=== PATIENT | female | born 1960 | race African-American/Black ===

== ENCOUNTER 2020-01-04 20:26 | Inpatient (IN) | payer MEDICARE, MEDICAID, SELFPAY ==
--- NOTE | ~2020-01-04 | XR_ITS ---
EXAMINATION: XR chest 2V DATE: 01/04/2020 20:50 INDICATION: Generalized weakness, bilateral lower limb edema TECHNIQUE: AP and lateral views of the chest are obtained. COMPARISON: 07/21/2019 FINDINGS: The lungs are hyperinflated but free of acute opacities. There is no pleural effusion or pn eumothorax. The cardiomediastinal silhouette is normal. There is mild thoracic spondylosis. Bilateral percutaneous nephrostomy tubes are noted. IMPRESSION: 1. No acute cardiopulmonary abnormality. Reviewed, dictated and finalized at location A.
--- NOTE | ~2020-01-04 | US_ITS ---
US venous doppler [facility] DATE: 01/05/2020 12:34 INDICATION: Left leg cellulitis. History of deep venous thrombosis. Patient on blood thinners. TECHNIQUE: Real-time and color flow imaging and Doppler analysis of the veins of the lower extremitie s COMPARISON: 02/02/2019 deep venous duplex examination of right lower extremity: No deep venous thrombo sis 11/17/2018 deep venous duplex examination of left lower extremity: Extensive deep venous thrombosis of the left common femoral vein, femoral vein, popliteal vein, peroneal trunk and posterior tibial vein s, as well as thrombus within the greater saphenous and deep femoral veins FINDINGS: Right lower extremity: The right greater saphenous vein is patent. There is spontaneous and phasic fl ow and normal augmentation and color flow signal and normal compression of the deep veins of the righ t lower extremity. Left lower extremity: Thrombus is identified within the left greater saphenous vein with only partial compression. There is incomplete compression of left common and femoral vein and lack of compression of the left femoral, popliteal, posterior tibial and peroneal veins.. IMPRESSION: Deep venous thrombosis throughout the left lower extremity Thrombus is noted within the left greater saphenous vein No evidence of deep venous thrombosis of the right lower extremity Dr. Ceja telephoned the report including deep venous thrombosis throughout the left lower extremity t o second floor nurse Gorge on 01/05/2020 at 1340 hours. Reviewed, dictated and finalized at Location [facility]. Reviewed, dictated and finalized at location B. IMPRESSION: Deep venous thrombosis throughout the left lower extremity Thrombus is noted within the left greater saphenous vein No evidence of deep venous thrombosis of the right lower extremity Dr. Ceja telephoned the report including deep venous thrombosis throughout the left lower extremity to second floor nurse Gorge on 01/05/2020 at 1340 hours.
--- NOTE | 2020-01-04 20:35 | ECG_ITS ---
Measurements Intervals [place] Rate: 91 P: SD: 0 QRS: 51 QRSD: 86 T: 0 QT: 393 QTc: 485 Interpretive Statements SINUS RHYTHM INCOMPLETE RIGHT BUNDLE BRANCH BLOCK T WAVE ABNORMALITY IN ANTERIOR LEADS- CONSIDER ISCHEMIA BASELINE ARTIFACT- I, II, AVR, AVL, V5-V6 ABNORMAL ECG Electronically Signed On 01-05-2020 8:38:14 CDT by Charlie Hernandez D.O.
[2020-01-04 20:37] VITALS: PULSE 93; RESP 22; TEMP 37.2
[2020-01-04 20:40] VITALS: BP 93/67; PULSE 93; RESP 22; TEMP 37.2; O2SAT 99
--- NOTE | 2020-01-04 20:59 | ED.GENADULT ---
HPI - General Adult General Chief complaint: Weakness Stated complaint: gen weakness Time Seen by Provider: 01/04/20 20:36 Source: patient and RN notes reviewed Mode of arrival: EMS Limitations: no limitations History of Present Illness HPI narrative: Pt is a 59 y/o -[place] female with a Hx of peripheral neuropathy, who presents to the ED via EMS with c/o erythema on her lt lower leg starting this morning. She notes that both of her legs were swollen when she woke up this morning, which she states is chronic. Pt notes that her lt lower leg appeared more red than usual. She states that she had difficulty using her legs to walk this morning, but notes that she has been able to walk this evening with a walker. Pt also reports a productive cough, but denies any fever, nausea, vomiting, or CP. She notes that she is currently taking Eliquis. complaint: Erythema on LLE Onset (ago): day(s) (1) Location: left (lt lower leg) Associated symptoms: cough (productive) and other (BLE edema (chronic); difficulty walking (resolved)) Related Data Home Medications Medication Instructions Recorded Confirmed apixaban [Eliquis] mg 01/04/20 clindamycin HCl 01/04/20 furosemide 01/04/20 gabapentin 01/04/20 metolazone 01/04/20 potassium chloride [Klor-Con M10] meq PO 01/04/20 ranitidine HCl 01/04/20 Allergies Allergy/AdvReac Type Severity Reaction Status Date / Time butorphanol Allergy Mild drove Verified 01/04/20 21:19 crazy ciprofloxacin Allergy Mild Nausea and Verified 01/04/20 21:19 Vomiting metrizamide Allergy Unknown Unknown Verified 01/04/20 21:19 Contrast Media Allergy Mild itching Uncoded 01/04/20 21:19 Review of Systems Review of Systems: All systems reviewed & are unremarkable except as noted in HPI and below Constitutional: Constitutional: Denies fever(s) and Reports other (difficulty walking (resolved)) Cardiovascular: Cardiovascular: Denies chest pain and Reports leg edema (BLE edema (chronic)) Respiratory: Respiratory: Reports cough (productive) Gastrointestinal: Gastrointestinal: Denies nausea and Denies vomiting Integumentary/Breasts: Skin/Breast: Reports erythema (erythema on lt lower leg) [facility] Past Medical History Medical History Anemia Arthritis Asthma Bowel obstruction Cervical cancer COPD (chronic obstructive pulmonary disease) Crohn's disease Depression DVT (deep venous thrombosis) Gastrointestinal ulcer GERD (gastroesophageal reflux disease) History of rectal polyps HTN (hypertension) IBS (irritable bowel syndrome) Peripheral neuropathy Renal disease Seasonal allergies Umbilical hernia UTI (urinary tract infection) Surgical History Surgical History History of colon resection History of colonoscopy Hx of section Hx of dilation and curettage Hx of nephrostomy Hx of umbilical hernia repair Social History Social History Smoking status: Current every day smoker Gender identity (if verbalized by the patient): Female Exam Const: General: no acute distress and alert Orientation/consciousness: patient oriented x3 Eyes: Conjunctivae: conjunctivae normal Pupils: Equal, round and reactive pupils present Neck: Neck: normal visual inspection Chest: Chest palpation & inspection: normal inspection of the chest Resp: Effort & Inspection: normal respiratory effort Auscultation: clear to auscultation bilaterally Cardio: Rate: regular rate Rhythm: regular rhythm GI: GI Palp: Yes Soft to palpation, No Tenderness to palpation present (GI), No Guarding due to palpation present (GI) and No Rigid due to palpation Skin: Other: left lower leg with erythema circumferential from ankle to below knee Neuro: General: patient oriented x3, moves all extremities and CN's II-XI intact bilaterally Extrem: General: edema b
[2020-01-04 21:00] LABS: Basophils Percent Auto 0.2 % (0.2-1.2); Eosinophils Percent Auto 0.1 % (0-4.4); Hematocrit 26.6 % (37.0-47.0); Hemoglobin 8.7 g/dL (12.0-15.0); Immature Granulocyte Absolute 0.16 K/mm3 (0.00-0.031); Immature Granulocyte Percent A 1.2 % (0-0.5); Lymphocytes Absolute Auto 1.44 K/mm3 (0.9-3.2); Lymphocytes Percent Auto 10.6 % (18.3-44.2); Mean Corpuscular HGB Conc 32.7 g/dl (32-36); Mean Corpuscular Hemoglobin 28.2 pg (26-34); Mean Corpuscular Volume 86.4 fl (80-100); Mean Platelet Volume 9.5 fl (7.4-10.4); Monocytes Absolute Auto 1.1 K/mm3 (0.1-0.6); Monocytes Percent Auto 7.8 % (2.6-8.5); Neutrophils Absolute Auto 10.9 K/mm3 (1.3-6.7); Neutrophils Percent Auto 80.1 % (45.5-73.1); Platelet Count Result 121 k/mm3 (150-375); Red Blood Count 3.08 M/mm3 (4.2-5.4); Red Cell Distribution Width 16.2 % (11.5-14.5); White Blood Count 13.6 K/mm3 (4.5-10.0)
[2020-01-04 21:14] LABS: Alanine Aminotransferase 12 U/L (4-35); Albumin Level 2.8 g/dL (3.5-5.1); Alkaline Phosphatase 103 U/L (38-126); Aspartate Amino Transferase 30 U/L (14-36); Bilirubin,Total 1.1 mg/dL (0.2-1.3); Blood Urea Nitrogen 29 mg/dL (7-17); Calcium 5.1 mg/dL (8.4-10.2); Carbon Dioxide 27 mmol/L (22-30); Chloride 94 mmol/L (98-107); Estimated Glomerular Filt Rate 35; Glucose 116 mg/dL (65-105); Potassium 2.5 mmol/L (3.4-5.0); Sodium 130 mmol/L (137-145)
[2020-01-04 21:18] LABS: Add Urine Microscopic? YES; Amorphous Sediment Urine Few; Appearance Urine Cloudy (Clear); Bacteria Urine 3+ /hpf; Bilirubin Urine Negative (Negative); Blood Urine 1+ (Negative); Color Urine Yellow (Yellow); Glucose Urine UA Negative (Negative); Ketones Urine Negative (Negative); Leukocyte Esterase Ur 3+ LEU/UL (Negative); Mucus Urine Few /lpf; Nitrate Urine Negative (Negative); Protein Urine 1+ mg/dL (Negative); Specific Grav Ur 1.012 (1.001-1.035); Squamous Epithelial Cell Urine Many /hpf (Few); Urobilinogen Urine Negative mg/dL (<2.0); WBC Urine >75 /hpf
[2020-01-04] MEDS: SODIUM CHLORIDE 0.9% IV 500 ML 999 ML IV CONT (21:18)
[2020-01-04 21:31] LABS: INR 1.5; Prothrombin Time 17.8 Seconds (11.1-14.7)
[2020-01-04 21:32] LABS: Magnesium 0.5 mg/dL (1.6-2.3); Partial Thromboplastin Time 41.7 SECONDS (22.3-36.8)
[2020-01-04 21:42] LABS: CRP 17.6 mg/dL (<1.0)
[2020-01-04 21:51] LABS: Lactic Acid Reflex 1.6 mmol/L (0.7-2.1)
--- NOTE | 2020-01-04 22:35 | PC.NURSE ---
pt reports itching all over approx 30 mins after iv abx were given. made aware, brendan [address] mg iv [address]orb from [address] bhatia
[2020-01-04] MEDS: CALCIUM GLUCONATE 1,000 MG/10 ML VIAL 1000 MG IV PUSH (23:31)
[2020-01-04] MEDS: MAGNESIUM SULF 1 GM/D5W 100 ML 1 GM/100 ML BAG IVPB (23:31)
[2020-01-04 23:38] VITALS: BP 137/92; PULSE 106; RESP 15; O2SAT 97
[2020-01-05] VITALS (12 sets, daily range): BP systolic 79–105; BP diastolic 50–66; PULSE 71–101; RESP 16–96; TEMP 36.3–36.6; O2SAT 16–100; BMI 19.1
--- NOTE | 2020-01-05 00:07 | PM.IMHP ---
H&P: HPI History of Present Illness Chief complaint: left leg cellulitis, hypokalemia, hypomagnesemia Narrative: This is a pleasant 59 year old -[place]ian female with known past medical history of previous DVT on chronic Eliquis therapy, HTN, COPD, with chronic nephrostomy tubes who is well known to our hospitalist service who presented to the hospital [facility] with a complaint of waking up this morning and finding her left lower extremity red, hot, and more painful than normal. The patient has chronic lower extremity edema. Tonight her legs felt so heavy that she is unable to move them on her own. She denies any worsening shortness of breath although she has had an ongoing cough recently. No sore throat, nausea, vomiting, chest pain, headache, abdominal pain, diarrhea, black stools or rectal bleeding. She has chronic lower back pain where her nephrostomy tubes are but states that its not any worse than normal. The patient was evaluated in the ER and started on Ancef IV. A short while afterwards she did develop diffuse pruritus but no rashes. She was treated with Benadryl. Routine labs demonstrated an elevated WBC of 13,600, a potassium level of 2.5 and a magnesium of 0.5. Review of Systems Review of Systems: All systems reviewed & are unremarkable except as noted in HPI and below PMFSH Past Medical History Medical History Anemia Arthritis Asthma Bowel obstruction Cervical cancer COPD (chronic obstructive pulmonary disease) Crohn's disease Depression DVT (deep venous thrombosis) Gastrointestinal ulcer GERD (gastroesophageal reflux disease) History of rectal polyps HTN (hypertension) IBS (irritable bowel syndrome) Peripheral neuropathy Renal disease Seasonal allergies Umbilical hernia UTI (urinary tract infection) Surgical History Surgical History History of colon resection History of colonoscopy Hx of section Hx of dilation and curettage Hx of nephrostomy Hx of umbilical hernia repair Family History Family History Mother Diabetes mellitus Acute myocardial infarction Congestive heart failure Hypertension Father Hypertension Social History Social History Years smoked: 25 Smoking status: Light tobacco smoker Tobacco type: cigarettes Second hand tobacco smoke exposure: No Alcohol intake: never Drinks per week: 2 Substance use: never Gender identity (if verbalized by the patient): Female Spiritual care concerns: No Agree to blood products: Yes Meds Home Medications and Allergies Home Medications Medication Instructions Recorded Confirmed Type diphenoxylate-atropine 2.5 2 tablet PO Q6H PRN #120 tablet 09/08/19 01/05/20 Rx mg-0.025 mg tablet Eliquis 5 mg PO BID 01/04/20 01/05/20 History furosemide 40 mg PO DAILY 01/04/20 01/05/20 History gabapentin 300 mg PO TID 01/04/20 01/05/20 History metolazone 2.5 mg PO DAILY 01/04/20 01/05/20 History ranitidine HCl 150 mg PO BID 01/04/20 01/05/20 History zolpidem [Ambien] 5 mg PO HS PRN 01/06/20 01/06/20 History Saccharomyces boulardii [Florastor] 250 mg PO BID 14 Days #28 cap 01/08/20 Rx magnesium oxide 400 mg PO BID 30 Days #60 tablet 01/08/20 Rx miconazole nitrate [Aloe [place] 1 applic TOPICAL Q12HR #141 gm 01/08/20 Rx Antifungal (micon)] potassium chloride 40 meq PO BID 30 Days #120 tablet 01/08/20 Rx sulfamethoxazole-trimethoprim 1 tablet PO Q12H 10 Days #20 tablet 01/08/20 Rx [Bactrim DS] tramadol 50 mg PO Q8H PRN #15 tablet 01/08/20 Rx Allergies Allergy/AdvReac Type Severity Reaction Status Date / Time butorphanol Allergy Mild drove Verified 01/04/20 21:19 crazy ciprofloxacin Allergy Mild Nausea and Verified 01/04/20 21:19 Vomiting iohexol Allergy Mild Itching Verified 01/08/20 10:03 [F
--- NOTE | 2020-01-05 00:32 | PC.NURSE ---
This patient, Ingrid Garcia, was admitted to Medical Room 248-. Patient/family oriented to hospital policies and general routines including ID bracelet, bed and alarms, visiting hours, pain management, procedures, bathroom and other care routines, personal items, smoking policy, room service/diet, and visiting hours. Valuables list has been completed. Information on how to activate the Rapid Response Team has been discussed. Patient/Family are encouraged to report perceived risks to care and to ask questions if they do not understand what they are told or what they should do.
[2020-01-05 01:00] LABS: Magnesium 0.8 mg/dL (1.6-2.3)
[2020-01-05] MEDS: MAGNESIUM SULF 2 GM/WATER 50ML 2 GM/50 ML BAG IVPB ×2 (03:10→08:44)
[2020-01-05 04:09] LABS: Basophils Percent Auto 0.1 % (0.2-1.2); Eosinophils Percent Auto 0.1 % (0-4.4); Hematocrit 22.9 % (37.0-47.0); Hemoglobin 7.5 g/dL (12.0-15.0); Immature Granulocyte Absolute 0.08 K/mm3 (0.00-0.031); Immature Granulocyte Percent A 0.9 % (0-0.5); Lymphocytes Absolute Auto 0.69 K/mm3 (0.9-3.2); Lymphocytes Percent Auto 7.7 % (18.3-44.2); Mean Corpuscular HGB Conc 32.8 g/dl (32-36); Mean Corpuscular Hemoglobin 28.1 pg (26-34); Mean Corpuscular Volume 85.8 fl (80-100); Mean Platelet Volume 9.7 fl (7.4-10.4); Monocytes Absolute Auto 0.5 K/mm3 (0.1-0.6); Monocytes Percent Auto 5.4 % (2.6-8.5); Neutrophils Absolute Auto 7.7 K/mm3 (1.3-6.7); Neutrophils Percent Auto 85.8 % (45.5-73.1); Platelet Count Result 100 k/mm3 (150-375); Red Blood Count 2.67 M/mm3 (4.2-5.4); Red Cell Distribution Width 16.3 % (11.5-14.5)
[2020-01-05 04:52] LABS: Alanine Aminotransferase 9 U/L (4-35); Albumin Level 2.2 g/dL (3.5-5.1); Alkaline Phosphatase 77 U/L (38-126); Aspartate Amino Transferase 23 U/L (14-36); Bilirubin,Total 0.8 mg/dL (0.2-1.3); Blood Urea Nitrogen 29 mg/dL (7-17); Calcium 5.2 mg/dL (8.4-10.2); Carbon Dioxide 27 mmol/L (22-30); Chloride 97 mmol/L (98-107); Estimated CRCL calculation 36 ml/min; Estimated Glomerular Filt Rate 47; Glucose 143 mg/dL (65-105); Magnesium 0.9 mg/dL (1.6-2.3); Potassium 2.5 mmol/L (3.4-5.0); Sodium 127 mmol/L (137-145)
[2020-01-05 05:34] LABS: Vancomycin Trough 31.8 ug/mL (10.0-20.0)
[2020-01-05 06:56] LABS: Magnesium 1.5 mg/dL (1.6-2.3); Potassium 2.6 mmol/L (3.4-5.0)
[2020-01-05] MEDS: POTASSIUM CHLORIDE 20 MEQ TABLET 60 MEQ PO (08:43)
[2020-01-05] MEDS: FAMOTIDINE 20 MG TABLET PO ×2 (08:44→20:42)
[2020-01-05] MEDS: GABAPENTIN 300 MG CAPSULE PO ×3 (08:44→22:42)
--- NOTE | 2020-01-05 10:01 | PM.IMPN ---
Progress Note: A&P Assessment and Plan (1) Redness and swelling of lower leg: Code(s): M79.89 - Other specified soft tissue disorders; R23.8 - Other skin changes Status: Acute Assessment and Plan: r/o Acute DVT vs. Cellulitis The patient was started on IV antibiotics initially she had an allergic reaction to Ancef, then her antibiotics were switched to IV vancomycin. Pending LE venous doppler U/S to rule an acute DVT. Pain control as needed. We are holding her home diuretics at this time due to severely low magnesium and potassium levels. Will most likely restart these tomorrow depending on her electrolyte levels. At this time her leg swelling is stable and not severe or weeping. Continue monitoring leg swelling and cellulitis. (2) Hypokalemia: Code(s): E87.6 - Hypokalemia Status: Acute Assessment and Plan: Potassium on arrival was 2.5 and was replaced. This morning her potassium was 2.6 and she was given 60 mEq of oral potassium.. Monitor serum potassium again at 2:00 p.m.. Continue to replace potassium, continue telemetry for now. (3) Hypomagnesemia: Code(s): E83.42 - Hypomagnesemia Status: Acute Assessment and Plan: Patient's magnesium on arrival was 0.5. This morning her magnesium was 1.5 and I gave another IV magnesium 2 g. Will recheck magnesium at 2:00 p.m.. Continue to replace magnesium as needed. (4) Hyponatremia: Code(s): E87.1 - Hypo-osmolality and hyponatremia Status: Acute Assessment and Plan: Patient has hyponatremia which was 130 on arrival. This could be secondary to malnutrition, over diuresis dehydration. Urine sodium and creatinine to check her FENA. Will continue monitoring her sodium levels during her hospitalization. (5) Abnormal urinalysis: Code(s): R82.90 - Unspecified abnormal findings in urine Status: Acute Assessment and Plan: This is to be expected as the patient has nephrostomy tubes. UA was cloudy with 3+ leukocyte esterase, greater than 75 WBCs and many squamous epithelial cells. Urine bacteria was 3+. We will check a urine culture. She is asymptomatic at this time. Monitor for any signs of symptoms of UTI. We will consider broadening IV antibiotics to cover for possible UTI if warranted. (6) Anemia: Qualifiers: Anemia type: unspecified type Qualified Code(s): D64.9 - Anemia, unspecified Code(s): D64.9 - Anemia, unspecified Status: Chronic Assessment and Plan: She has chronic anemia most likely related to chronic renal disease. Look to prior labs in the past and in June 2019 she had labs drawn showing iron panel was anemia chronic disease. At baseline patient's creatinine ranges between 7-9's. Hemoglobin this morning was 7.5 and hematocrit 22.9%. Will repeat H&H at 2:00 p.m.. Will also order stool Hemoccult look for any acute GI bleeding. Patient denies any acute bleeding or dark tarry stools recently. Continue monitoring labs and transfuse as needed. (7) Thrombocytopenia: Code(s): D69.6 - Thrombocytopenia, unspecified Status: Acute Assessment and Plan: Patient has a history of thrombocytopenia on prior labs in the past in June 2019 with platelets between 90-120. Platelets this morning was 100. Stable. Monitor platelets. Transfuse prn. (8) Acute on chronic renal failure: Qualifiers: Acute renal failure type: unspecified Chronic kidney disease stage: stage 3 (moderate) Qualified Code(s): N17.9 - Acute kidney failure, unspecified; N18.3 - Chronic kidney disease, stage 3 (moderate)
--- NOTE | 2020-01-05 10:46 | PC.NURSE ---
Medication administration edits made to medication scheduled for 01/05/2020 to reflect admin by Gorge Tolentino RN.
--- NOTE | 2020-01-05 12:08 | PC.NURSE ---
Pt to ultrasound via hospital bed.
[2020-01-05 12:25] LABS: IFOB Positive Control Positive; Immunochemical Fecal Occult Bl Positive (N)
--- NOTE | 2020-01-05 13:00 | PC.NURSE ---
Patient returned from ultrasound via stretcher.
[2020-01-05] MEDS: APIXABAN 5 MG TABLET PO ×2 (13:27→20:42)
[2020-01-05 14:08] LABS: Hematocrit 28.7 % (37.0-47.0)
--- NOTE | 2020-01-05 14:09 | PC.NURSE ---
VENOUS DOPPLAR CALLED TO NAYELY BONDS. NO NEW ORDERS
[2020-01-05 14:41] LABS: Magnesium 1.9 mg/dL (1.6-2.3); Potassium 3.3 mmol/L (3.4-5.0)
[2020-01-05 15:44] LABS: Basophils Percent Auto 0.1 % (0.2-1.2); Eosinophils Percent Auto 0.3 % (0-4.4); Hematocrit 25.1 % (37.0-47.0); Immature Granulocyte Absolute 0.03 K/mm3 (0.00-0.031); Immature Granulocyte Percent A 0.4 % (0-0.5); Lymphocytes Percent Auto 12.4 % (18.3-44.2); Mean Corpuscular HGB Conc 31.9 g/dl (32-36); Mean Corpuscular Hemoglobin 28.1 pg (26-34); Mean Corpuscular Volume 88.1 fl (80-100); Mean Platelet Volume 9.8 fl (7.4-10.4); Monocytes Absolute Auto 0.5 K/mm3 (0.1-0.6); Monocytes Percent Auto 7.3 % (2.6-8.5); Neutrophils Absolute Auto 5.8 K/mm3 (1.3-6.7); Neutrophils Percent Auto 79.5 % (45.5-73.1); Platelet Count Result 104 k/mm3 (150-375); Red Blood Count 2.85 M/mm3 (4.2-5.4); Red Cell Distribution Width 16.7 % (11.5-14.5); White Blood Count 7.3 K/mm3 (4.5-10.0)
[2020-01-05 15:54] LABS: INR 1.9
[2020-01-05 15:55] LABS: Partial Thromboplastin Time 47.9 SECONDS (22.3-36.8)
--- NOTE | 2020-01-05 16:05 | PCDIET ---
Nutrition malnutrition consult complete-Malnutrition evidence includes severe temporal and orbital wasting as well as loss of 26% of body weight in two years (UBW two years ago was 175lbs) Pt assessed and followed by RD: Nutrition Problem: Altered GI fx r/t partial colectomy & Chrons as evidence by malnutrition (wt loss of 26% of body weight over last two years). Nutrition Goal: Tolerance of meals with PO intake of 75% or greater to maintain wt
[2020-01-05] MEDS: POTASSIUM CHLORIDE 20 MEQ TABLET 40 MEQ PO (17:53)
[2020-01-05] MEDS: MAG HYDROX/AL HYDROX/SIMETH 30 ML UDC PO (17:56)
[2020-01-05 19:10] LABS: Creatinine Urine 47.7 mg/dL
[2020-01-05 19:17] LABS: Sodium Urine Random 51 meq/L
[2020-01-06] VITALS (8 sets, daily range): BP systolic 96–115; BP diastolic 62–72; PULSE 70–93; RESP 16–18; TEMP 36.1–36.4; O2SAT 94–100
[2020-01-06] MEDS: GABAPENTIN 300 MG CAPSULE PO ×3 (05:18→20:36)
[2020-01-06 06:15] LABS: Eosinophils Absolute Auto 0.1 K/mm3 (0-0.3); Hematocrit 24.1 % (37.0-47.0); Hemoglobin 7.9 g/dL (12.0-15.0); Immature Granulocyte Absolute 0.02 K/mm3 (0.00-0.031); Immature Granulocyte Percent A 0.4 % (0-0.5); Lymphocytes Absolute Auto 1.04 K/mm3 (0.9-3.2); Lymphocytes Percent Auto 20.1 % (18.3-44.2); Mean Corpuscular HGB Conc 32.8 g/dl (32-36); Mean Corpuscular Hemoglobin 28.9 pg (26-34); Mean Corpuscular Volume 88.3 fl (80-100); Mean Platelet Volume 9.2 fl (7.4-10.4); Monocytes Absolute Auto 0.4 K/mm3 (0.1-0.6); Monocytes Percent Auto 8.5 % (2.6-8.5); Neutrophils Absolute Auto 3.6 K/mm3 (1.3-6.7); Platelet Count Result 95 k/mm3 (150-375); Red Blood Count 2.73 M/mm3 (4.2-5.4); Red Cell Distribution Width 17.1 % (11.5-14.5); White Blood Count 5.2 K/mm3 (4.5-10.0)
[2020-01-06 06:40] LABS: Albumin Level 2.5 g/dL (3.5-5.1); Blood Urea Nitrogen 22 mg/dL (7-17); Carbon Dioxide 30 mmol/L (22-30); Chloride 98 mmol/L (98-107); Estimated CRCL calculation 36 ml/min; Estimated Glomerular Filt Rate 47; Glucose 84 mg/dL (65-105); Magnesium 1.7 mg/dL (1.6-2.3); Phosphorus 2.1 mg/dL (2.5-4.5); Potassium 3.2 mmol/L (3.4-5.0); Sodium 133 mmol/L (137-145)
[2020-01-06 06:41] LABS: CRP 18.7 mg/dL (<1.0)
[2020-01-06] MEDS: MAGNESIUM SULF 2 GM/WATER 50ML 2 GM/50 ML BAG IVPB (08:32)
[2020-01-06] MEDS: POTASSIUM CHLORIDE 20 MEQ TABLET 60 MEQ PO (08:32)
[2020-01-06] MEDS: POTASSIUM/PHOSPHORUS/SODIUM 1.5 GM PACKET 1 PACKET PO (08:32)
[2020-01-06] MEDS: MAGNESIUM OXIDE 400 MG TABLET PO (08:33)
[2020-01-06] MEDS: APIXABAN 5 MG TABLET PO ×2 (08:33→20:34)
[2020-01-06] MEDS: FAMOTIDINE 20 MG TABLET PO ×2 (08:33→20:35)
--- NOTE | 2020-01-06 14:53 | PM.IMPN ---
Progress Note: A&P Assessment and Plan (1) Redness and swelling of lower leg: Code(s): M79.89 - Other specified soft tissue disorders; R23.8 - Other skin changes Status: Acute Assessment and Plan: r/o Acute DVT vs. Cellulitis The patient was started on IV antibiotics initially she had an allergic reaction to Ancef, then her antibiotics were switched to IV vancomycin. LE Venous doppler U/S which showed Deep venous thrombosis throughout the left lower extremity, but it looked stable when talking to the . Thrombus is noted within the left greater saphenous vein After talking with Dr. Santiago my attending provider about the patient's symptoms and DVT findings. We found that the patient had a left lower leg ultrasound October of 2018 that showed she had a very large DVT. I talked to the radiologist, Dr. Lo who reviewed the DVT from October 2018 and from today and he states there is no way to tell if this is new versus old but states it is in the same distribution and there is no repeat ultrasound to show if it had resolved with therapy. Dr. Santiago evaluated the patient and he feels her redness and swelling to her leg, leukocytosis, fevers, chills is associated with cellulitis. At this time the patient will continue on her Eliquis, we will discontinue the IV heparin and Coumadin. We will continue IV antibiotics for cellulitis and monitor the patient's symptoms. Pain control as needed. Continue monitoring leg swelling and cellulitis. (2) Hypokalemia: Code(s): E87.6 - Hypokalemia Status: Acute Assessment and Plan: Potassium on arrival was 2.5 and was replaced. This morning her potassium was 3.2 and she was given 40 mEq of oral potassium. Repeat Potassium was 3.7. Continue to replace potassium, continue telemetry for now. (3) Hypomagnesemia: Code(s): E83.42 - Hypomagnesemia Status: Acute Assessment and Plan: Patient's magnesium on arrival was 0.5. This morning her magnesium was 1.7 and I gave another IV magnesium 2 g. Mag improved to 2.7. Will recheck magnesium at 2:00 p.m.. Continue to replace magnesium as needed. (4) Hyponatremia: Code(s): E87.1 - Hypo-osmolality and hyponatremia Status: Acute Assessment and Plan: Patient has hyponatremia which was 130 on arrival. This could be secondary to malnutrition, over diuresis dehydration. Urine sodium was 51, Urine creatinine was 47.7 which shows Intrinsic cause Will continue monitoring her sodium levels during her hospitalization. (5) Abnormal urinalysis: Code(s): R82.90 - Unspecified abnormal findings in urine Status: Acute Assessment and Plan: This is to be expected as the patient has nephrostomy tubes. UA was cloudy with 3+ leukocyte esterase, greater than 75 WBCs and many squamous epithelial cells. Urine bacteria was 3+. We will check a urine culture. She is asymptomatic at this time. Monitor for any signs of symptoms of UTI. We will consider broadening IV antibiotics to cover for possible UTI if warranted. (6) Anemia: Qualifiers: Anemia type: unspecified type Qualified Code(s): D64.9 - Anemia, unspecified Code(s): D64.9 - Anemia, unspecified Status: Chronic Assessment and Plan: She has chronic anemia most likely related to chronic renal disease. Look to prior labs in the past and in June 2019 she had labs drawn showing iron panel was anemia chronic disease. At baseline patient's creatinine ranges between 7-9's. Hemoglobin this morning was 7.9 and hematocrit 24.1%. Her stool Hemoccult was positive. Her H&H is stable from her baseline and she needs to continue on her Eliquis for DVT. Patient denies any acute blee
[2020-01-06 16:16] LABS: Magnesium 2.7 mg/dL (1.6-2.3); Potassium 3.7 mmol/L (3.4-5.0)
[2020-01-06] MEDS: ONDANSETRON INJ 4 MG/2 ML VIAL IV PUSH (16:17)
--- NOTE | 2020-01-06 18:30 | PC.NURSE ---
requested hold 01/05 1700 dose of mag ox due to current magnesium level.
[2020-01-06] MEDS: BISMUTH SUBSALICYLATE 262 MG CHEWABLE TABLET 524 MG PO ×2 (18:50→20:37)
[2020-01-06] MEDS: ZOLPIDEM TARTRATE 5 MG TABLET PO (20:38)
[2020-01-07] MEDS: GABAPENTIN 300 MG CAPSULE PO ×3 (05:25→20:31)
[2020-01-07 05:50] LABS: Hematocrit 26.3 % (37.0-47.0); Hemoglobin 8.5 g/dL (12.0-15.0); Mean Corpuscular HGB Conc 32.3 g/dl (32-36); Mean Corpuscular Hemoglobin 28.4 pg (26-34); Mean Platelet Volume 9.5 fl (7.4-10.4); Platelet Count Result 108 k/mm3 (150-375); Red Blood Count 2.99 M/mm3 (4.2-5.4); White Blood Count 5.2 K/mm3 (4.5-10.0)
[2020-01-07 06:00] VITALS: BP 133/78; PULSE 86; RESP 18; TEMP 36.4; O2SAT 100
[2020-01-07 06:24] LABS: Potassium 3.6 mmol/L (3.4-5.0); Sodium 134 mmol/L (137-145)
[2020-01-07 07:05] LABS: Albumin Level 2.6 g/dL (3.5-5.1); Blood Urea Nitrogen 16 mg/dL (7-17); CRP 8.5 mg/dL (<1.0); Carbon Dioxide 32 mmol/L (22-30); Chloride 97 mmol/L (98-107); Estimated CRCL calculation 42 ml/min; Estimated Glomerular Filt Rate 56; Glucose 82 mg/dL (65-105); Phosphorus 2.4 mg/dL (2.5-4.5)
[2020-01-07] MEDS: APIXABAN 5 MG TABLET PO ×2 (08:43→20:31)
[2020-01-07] MEDS: FAMOTIDINE 20 MG TABLET PO ×2 (08:43→20:31)
[2020-01-07] MEDS: FUROSEMIDE 20 MG TABLET PO (08:43)
[2020-01-07] MEDS: metOLazone 2.5 MG TABLET PO (08:44)
[2020-01-07] MEDS: BISMUTH SUBSALICYLATE 262 MG CHEWABLE TABLET 524 MG PO (08:44)
--- NOTE | 2020-01-07 12:55 | PM.IMPN ---
Progress Note: A&P Assessment and Plan (1) Redness and swelling of lower leg: Code(s): M79.89 - Other specified soft tissue disorders; R23.8 - Other skin changes Status: Acute Assessment and Plan: Cellulitis and chronic DVT left lower extremity. The patient was started on IV antibiotics initially she had an allergic reaction to Ancef, then her antibiotics were switched to IV vancomycin. LE Venous doppler U/S which showed Deep venous thrombosis throughout the left lower extremity, but it looked stable when talking to the . Thrombus is noted within the left greater saphenous vein After talking with Dr. Santiago my attending provider about the patient's symptoms and DVT findings. We found that the patient had a left lower leg ultrasound October of 2018 that showed she had a very large DVT. I talked to the radiologist, Dr. Lo who reviewed the DVT from October 2018 and from today and he states there is no way to tell if this is new versus old but states it is in the same distribution and there is no repeat ultrasound to show if it had resolved with therapy. Dr. Santiago evaluated the patient and he feels her redness and swelling to her leg, leukocytosis, fevers, chills is associated with cellulitis. At this time the patient will continue on her Eliquis. We will continue IV antibiotics for cellulitis and monitor the patient's symptoms. Pain control as needed. Continue monitoring leg swelling and cellulitis. (2) Hypokalemia: Code(s): E87.6 - Hypokalemia Status: Acute Assessment and Plan: Potassium on arrival was 2.5 and was replaced. This morning her potassium was 3.6 and she was given 20 mEq of oral potassium. She was restarted on her Lasix and metolazone this morning and will continue monitoring her potassium and magnesium in the morning. (3) Hypomagnesemia: Code(s): E83.42 - Hypomagnesemia Status: Acute Assessment and Plan: Patient's magnesium on arrival was 0.5. This morning her magnesium was 2.7. She was restarted on her Lasix and metolazone this morning and will continue monitoring her potassium and magnesium in the morning. (4) Hyponatremia: Code(s): E87.1 - Hypo-osmolality and hyponatremia Status: Acute Assessment and Plan: Patient has hyponatremia which was 130 on arrival. Today sodium was 134. Stable. This could be secondary to malnutrition, over diuresis dehydration. Urine sodium was 51, Urine creatinine was 47.7 which shows Intrinsic cause. Will continue monitoring her sodium levels during her hospitalization. (5) Abnormal urinalysis: Code(s): R82.90 - Unspecified abnormal findings in urine Status: Acute Assessment and Plan: This is to be expected as the patient has nephrostomy tubes. UA was cloudy with 3+ leukocyte esterase, greater than 75 WBCs and many squamous epithelial cells. Urine bacteria was 3+. We will check a urine culture. She is asymptomatic at this time. Monitor for any signs of symptoms of UTI. We will consider broadening IV antibiotics to cover for possible UTI if warranted. (6) Anemia: Qualifiers: Anemia type: unspecified type Qualified Code(s): D64.9 - Anemia, unspecified Code(s): D64.9 - Anemia, unspecified Status: Chronic Assessment and Plan: She has chronic anemia most likely related to chronic renal disease. Look to prior labs in the past and in June 2019 she had labs drawn showing iron panel was anemia chronic disease. At baseline patient's creatinine ranges between 7-9's. Hemoglobin this morning was 8.5 and hematocrit 26.3%. Her stool Hemoccult was positive. Her H&H is stable from her baseline and she needs to continue on her Ena
[2020-01-07 14:00] VITALS: BP 104/69; PULSE 78; RESP 16; TEMP 36.8; O2SAT 96
[2020-01-07] MEDS: ZOLPIDEM TARTRATE 5 MG TABLET PO (20:31)
[2020-01-07] MEDS: TRAMADOL HCL 50 MG TABLET PO (20:31)
[2020-01-07 22:09] VITALS: BP 135/65; PULSE 74; RESP 16; TEMP 36.3; O2SAT 100
[2020-01-08] MEDS: TRAMADOL HCL 50 MG TABLET PO ×2 (03:02→11:02)
[2020-01-08] MEDS: GABAPENTIN 300 MG CAPSULE PO (05:44)
[2020-01-08 05:49] LABS: Albumin Level 2.6 g/dL (3.5-5.1); Blood Urea Nitrogen 16 mg/dL (7-17); CRP 6.7 mg/dL (<1.0); Calcium 7.5 mg/dL (8.4-10.2); Carbon Dioxide 34 mmol/L (22-30); Chloride 96 mmol/L (98-107); Estimated CRCL calculation 39 ml/min; Estimated Glomerular Filt Rate 51; Glucose 89 mg/dL (65-105); Magnesium 1.7 mg/dL (1.6-2.3); Phosphorus 2.9 mg/dL (2.5-4.5); Potassium 3.4 mmol/L (3.4-5.0); Sodium 133 mmol/L (137-145)
[2020-01-08 06:09] VITALS: BP 104/50; PULSE 65; RESP 16; TEMP 36; O2SAT 91
[2020-01-08] MEDS: FAMOTIDINE 20 MG TABLET PO (09:20)
[2020-01-08] MEDS: APIXABAN 5 MG TABLET PO (09:20)
[2020-01-08] MEDS: POTASSIUM CHLORIDE 20 MEQ TABLET.ER PO (09:20)
[2020-01-08] MEDS: metOLazone 2.5 MG TABLET PO (09:20)
[2020-01-08] MEDS: FUROSEMIDE 20 MG TABLET PO (09:20)
--- NOTE | 2020-01-08 10:00 | PM.DS ---
DS: Diagnosis Admitting Diagnosis Admitting Diagnosis: Hypokalemia Discharge Diagnosis (1) Redness and swelling of lower leg: Code(s): M79.89 - Other specified soft tissue disorders; R23.8 - Other skin changes Status: Acute Assessment and Plan: Cellulitis and chronic DVT left lower extremity. The patient was started on IV antibiotics initially she had an allergic reaction to Ancef, then her antibiotics were switched to IV vancomycin. LE Venous doppler U/S which showed Deep venous thrombosis throughout the left lower extremity, but it looked stable when talking to the . Thrombus is noted within the left greater saphenous vein After talking with Dr. Santiago my attending provider about the patient's symptoms and DVT findings. We found that the patient had a left lower leg ultrasound October of 2018 that showed she had a very large DVT. I talked to the radiologist, Dr. Lo who reviewed the DVT from October 2018 and from today and he states there is no way to tell if this is new versus old but states it is in the same distribution and there is no repeat ultrasound to show if it had resolved with therapy. Dr. Santiago evaluated the patient and he feels her redness and swelling to her leg, leukocytosis, fevers, chills is associated with cellulitis. At this time the patient will continue on her Eliquis. Today, the patient's cellulitis is much improved and her CRP has trended down from 18 to 6.7. The patient feels control discharge at this time and will continue on Bactrim antibiotics for total of 10 days of therapy. Recommended to take a probiotic to prevent any diarrhea associated with antibiotic use. The patient understands and agrees the plan at this time. (2) Hypokalemia: Code(s): E87.6 - Hypokalemia Status: Acute Assessment and Plan: Potassium on arrival was 2.5 and was replaced. This morning her potassium was 3.4, will give 80 mEq of potassium this morning since she will receive her Lasix and metolazone. Will discharge the patient on 40 mEq b.i.d. of potassium orally Will recheck her BMP on Thursday, 3 days and have her follow-up with her primary care provider. (3) Hypomagnesemia: Code(s): E83.42 - Hypomagnesemia Status: Acute Assessment and Plan: Patient's magnesium on arrival was 0.5. This morning her magnesium was 1.7. Will continue patient's magnesium 400 mg b.i.d. and recheck her magnesium level in 3 days. (4) Hyponatremia: Code(s): E87.1 - Hypo-osmolality and hyponatremia Status: Acute Assessment and Plan: Patient has hyponatremia which was 130 on arrival. Today sodium was 133. Stable. This could be secondary to malnutrition, over diuresis dehydration. Urine sodium was 51, Urine creatinine was 47.7 which shows Intrinsic cause. Will recheck BMP in 1 week and have her follow-up with a primary care provider. (5) Abnormal urinalysis: Code(s): R82.90 - Unspecified abnormal findings in urine Status: Acute Assessment and Plan: This is to be expected as the patient has nephrostomy tubes. UA was cloudy with 3+ leukocyte esterase, greater than 75 WBCs and many squamous epithelial cells. Urine bacteria was 3+. We will check a urine culture. She is asymptomatic at this time. Monitor for any signs of symptoms of UTI. We will consider broadening IV antibiotics to cover for possible UTI if warranted. (6) Anemia: Qualifiers: Anemia type: unspecified type Qualified Code(s): D64.9 - Anemia, unspecified Code(s): D64.9 - Anemia, unspecified Status: Chronic Assessment and Plan: She has chronic anemia most likely related to chronic renal disease. Look to prior labs in the past a
[2020-01-08] MEDS: MAGNESIUM OXIDE 400 MG TABLET PO (10:58)
[2020-01-08] MEDS: POTASSIUM CHLORIDE 20 MEQ TABLET 60 MEQ PO (11:02)
[2020-01-09 04:26] LABS: Osmolality, Urine 277 mOsm/kg (50-1200)
--- NOTE | 2020-01-17 11:04 | PC.NURSE ---
Blood cx are negative.
== END 2020-01-08 12:30 | disposition home health service (06) | DRG 603 ==
LOC: ANHED 21:36 → ANH2MED 23:38
PROVIDERS: Emergency Medicine; Physician Assistant; Admitting Provider Family Medicine; Emergency Provider General Practice; PCP Internal Medicine; Visit Provider Internal Medicine
DX: L03.116 Cellulitis of left lower limb (principal); N17.9 Acute kidney failure, unspecified; E46 Unspecified protein-calorie malnutrition; Z68.1 Body mass index [BMI] 19.9 or less, adult; I82.812 Embolism and thrombosis of superficial veins of left lower extremity; E87.6 Hypokalemia; E83.42 Hypomagnesemia; E83.51 Hypocalcemia; D63.8 Anemia in other chronic diseases classified elsewhere; J44.9 Chronic obstructive pulmonary disease, unspecified; F17.210 Nicotine dependence, cigarettes, uncomplicated; D69.6 Thrombocytopenia, unspecified; I12.9 Hypertensive chronic kidney disease with stage 1 through stage 4 chronic kidney disease, or unspecified chronic kidney disease; N18.3 Chronic kidney disease, stage 3 (moderate); Z79.01 Long term (current) use of anticoagulants
CPT/HCPCS: 36415; 71046; 80053; 80069; 80202; 81001; 82274; 82570; 83605; 83735; 83935; 84132; 84300; 85014; 85018; 85025; 85027; 85610; 85730; 86140; 87040; 87081; 87086; 87088; 87804; 93005; 93970; 96365; 96372; 96375; 97110; 97116; 97161; 97165; 97530; 97535; 99285; A9270; J0610; J0690; J1200; J2405; J3370; J3475; J3480; J7040

== ENCOUNTER 2020-01-12 16:51 | Outpatient (CLI) | payer MEDICARE, MEDICAID, SELFPAY ==
[2020-01-12 17:11] LABS: Hematocrit 26.9 % (37.0-47.0); Hemoglobin 8.2 g/dL (12.0-15.0); Mean Corpuscular HGB Conc 30.5 g/dl (32-36); Mean Corpuscular Hemoglobin 28.3 pg (26-34); Mean Corpuscular Volume 92.8 fl (80-100); Mean Platelet Volume 9.5 fl (7.4-10.4); Platelet Count Result 255 k/mm3 (150-375); Red Cell Distribution Width 16.4 % (11.5-14.5); White Blood Count 5.7 K/mm3 (4.5-10.0)
[2020-01-12 17:20] LABS: Blood Urea Nitrogen 16 mg/dL (7-17); Calcium 7.6 mg/dL (8.4-10.2); Carbon Dioxide 21 mmol/L (22-30); Chloride 104 mmol/L (98-107); Estimated Glomerular Filt Rate 23; Glucose 97 mg/dL (65-105); Magnesium 1.3 mg/dL (1.6-2.3); Potassium 5.8 mmol/L (3.4-5.0); Sodium 135 mmol/L (137-145)
== END 2020-01-12 16:52 | disposition home or self-care (01) ==
PROVIDERS: PCP Physician Assistant; Visit Provider Physician Assistant
DX: D64.9 Anemia, unspecified (principal); D69.6 Thrombocytopenia, unspecified; Z79.01 Long term (current) use of anticoagulants; E83.42 Hypomagnesemia; E87.1 Hypo-osmolality and hyponatremia; E87.6 Hypokalemia; N17.9 Acute kidney failure, unspecified; N18.9 Chronic kidney disease, unspecified
CPT/HCPCS: 36415; 80048; 83735; 85027

== ENCOUNTER 2020-04-07 17:38 | Inpatient (IN) | payer MEDICARE, MEDICAID, SELFPAY ==
[2020-04-07] VITALS (9 sets, daily range): BP systolic 80–110; BP diastolic 46–79; PULSE 81–108; RESP 17–22; TEMP 36.2–37.8; O2SAT 94–100; BMI 17.7
--- NOTE | ~2020-04-07 | CT_ITS ---
EXAMINATION: CT abdomen pelvis wo con DATE: 04/11/2020 11:09 INDICATION: Diarrhea TECHNIQUE: Computed tomography (CT) of the abdomen and pelvis was performed without intravenous contr ast. The dose-length product (DLP) was 304.89 mGy-cm. Automated exposure control and iterative recons truction technique were employed. COMPARISON: 07/02/2019 FINDINGS: There are moderate size right and small left pleural effusion with resulting passive atelec tasis in the lower lobes. The heart size is normal. There is diffuse asymmetric body wall edema on th e right. The liver, spleen, pancreas, and adrenal glands are normal. Stones or sludge are present in the nondistended gallbladder. Percutaneous nephrostomy tubes and in expected position. There is a sma ll amount of gas in the left renal pelvis, likely related to the nephrostomy. Embolization coils are noted in the left kidney. There is calcified atherosclerosis of the aorta and many of the other arter ies. No definite pathologically enlarged abdominal or pelvic lymph nodes are identified. Surgical ky nges are noted in the rectum and pelvis. There are multiple dilated loops of small bowel which measur e up to 3.8 cm. The distal small bowel is collapsed. A relative transition is seen in the anterior ab domen just to the left of midline near the site of surgical material. No free intraperitoneal gas is identified. Collections of gas in the pelvic midline are likely within the urinary bladder. There als o appears to be a small amount of gas in the vagina. Patchy areas of sclerosis in the lower lumbar sp ine, sacrum, and medial iliac bones could be due to radiation therapy. A sacral decubitus ulceration is grossly unchanged. IMPRESSION: 1. Dilated small bowel which could reflect ileus versus partial obstruction. 2. Diffuse anasarca with asymmetric body wall edema on the right. 3. Apparent gas in the urinary bladder and vagina which could be due to enterovesicular and enterovag inal fistula related to treatment for cervical cancer. 4. Moderate size right and small left pleural effusions. Reviewed, dictated and finalized at location A. IMPRESSION: 1. Dilated small bowel which could reflect ileus versus partial obstruction. 2. Diffuse anasarca with asymmetric body wall edema on the right. 3. Apparent gas in the urinary bladder and vagina which could be due to enterov esicular and enterovaginal fistula related to treatment for cervical cancer. 4. Moderate size right and small left pleural effusions.
--- NOTE | ~2020-04-07 | XR_ITS ---
EXAMINATION: XR chest 2V DATE: 04/07/2020 18:33 INDICATION: Asthma, COPD and hypertension presenting with lower limb swelling. TECHNIQUE: frontal and lateral views of the chest were obtained. COMPARISON: Chest radiograph dated 01/04/20 FINDINGS: Increased lucency with architectural distortion in the upper lung zones consistent with emphysema. No focal airspace opacities, pulmonary edema, pleural effusion or pneumothorax. Cardiomediastinal silho uette is normal. Surgical clips in the left abdomen. Bilateral percutaneous nephrostomy tubes in expe cted position. Mild thoracic spondylosis. IMPRESSION: 1. Emphysema. No acute cardiopulmonary disease. Reviewed, dictated and finalized at location A.
--- NOTE | 2020-04-07 18:16 | ED.GENADULT ---
HPI - General Adult General Chief complaint: Extremity Injury, Lower Stated complaint: leg swelling Source: patient and family History of Present Illness HPI narrative: Patient is 60 years old -Q[place] female came from home complaining of lower extremity pain bilaterally for the last 3 weeks, was seen at [facility] 10 days ago and started on antibiotic for cellulitis. Venous Doppler at that time showed no blood clots. Patient came today because the pain is not improving. Patient denies any fever, chills, nausea, vomiting. Related Data Home Medications Medication Instructions Recorded Confirmed Eliquis 5 mg PO BID 01/04/20 01/05/20 furosemide 40 mg PO DAILY 01/04/20 01/05/20 gabapentin 300 mg PO TID 01/04/20 01/05/20 metolazone 2.5 mg PO DAILY 01/04/20 01/05/20 ranitidine HCl 150 mg PO BID 01/04/20 01/05/20 zolpidem [Ambien] 5 mg PO HS PRN 01/06/20 01/06/20 Allergies Allergy/AdvReac Type Severity Reaction Status Date / Time butorphanol Allergy Mild drove Verified 04/07/20 17:44 crazy ciprofloxacin Allergy Mild Nausea and Verified 04/07/20 17:44 Vomiting iohexol Allergy Mild Itching Verified 04/07/20 17:44 [From contrast - CT, X-RAY] metrizamide Allergy Unknown Unknown Verified 04/07/20 17:44 Contrast Media Allergy Mild Itching Uncoded 04/07/20 17:44 Review of Systems Review of Systems: Narrative: CONSTITUTIONAL: Denies fever, chills, or sweats. EYES: Denies visual changes, redness, or discharge. ENT: Denies rhinorrhea, congestion, sore throat, or otalgia. CARDIOVASCULAR: Denies chest pain, palpitations, or edema. RESPIRATORY: Denies cough or dyspnea. GASTROINTESTINAL: Denies abdominal pain, nausea, vomiting, or diarrhea. GENITOURINARY: Denies dysuria or hematuria. SKIN: Denies rash or itching. MUSCULOSKELETAL: Denies back pain, joint pain, or myalgia. NEUROLOGIC: Denies headache, numbness, or weakness. PSYCHIATRIC: Denies anxiety or depression. [facility] Past Medical History Medical History Anemia Arthritis Asthma Bowel obstruction Cervical cancer COPD (chronic obstructive pulmonary disease) Crohn's disease Depression DVT (deep venous thrombosis) Gastrointestinal ulcer GERD (gastroesophageal reflux disease) History of rectal polyps HTN (hypertension) IBS (irritable bowel syndrome) Peripheral neuropathy Renal disease Seasonal allergies Umbilical hernia UTI (urinary tract infection) Surgical History Surgical History History of colon resection History of colonoscopy Hx of section Hx of dilation and curettage Hx of nephrostomy Hx of umbilical hernia repair Family History Family History Mother Diabetes mellitus Acute myocardial infarction Congestive heart failure Hypertension Father Hypertension Social History Social History Years smoked: 25 Smoking status: Light tobacco smoker Tobacco type: cigarettes Second hand tobacco smoke exposure: No Alcohol intake: never Drinks per week: 2 Substance use: never Gender identity (if verbalized by the patient): Female Spiritual care concerns: No Agree to blood products: Yes Exam Narrative: Exam Narrative: General appearance: Well-developed, well-nourished Skin: Normal color right lower extremity showed chronic stasis dermatitis, thick hyperpigmented skin, warm, slightly erythematous, 2+ edema. Left lower leg showed the same except slightly less swollen compared to the right one. No open wound, no discharge or drainage. Head: Normocephalic, nontraumatic Eyes: Clear conjunctiva ENT: Oropharynx normal, ears normal, nose normal Neck: Supple, nontender Chest and respiratory: Airway patent, no respiratory distress, no accessory muscle use Heart: Regular rate/rhythm Abdomen: Soft, nontender,
[2020-04-07 18:31] LABS: Basophils Percent Auto 0.2 % (0.2-1.2); Eosinophils Percent Auto 0.1 % (0-4.4); Hematocrit 25.5 % (37.0-47.0); Hemoglobin 8.9 g/dL (12.0-15.0); Immature Granulocyte Absolute 0.15 K/mm3 (0.00-0.031); Immature Granulocyte Percent A 1.3 % (0-0.5); Lymphocytes Absolute Auto 0.84 K/mm3 (0.9-3.2); Lymphocytes Percent Auto 7.1 % (18.3-44.2); Mean Corpuscular HGB Conc 34.9 g/dl (32-36); Mean Corpuscular Hemoglobin 30.8 pg (26-34); Mean Corpuscular Volume 88.2 fl (80-100); Mean Platelet Volume 10.8 fl (7.4-10.4); Monocytes Absolute Auto 0.8 K/mm3 (0.1-0.6); Monocytes Percent Auto 6.7 % (2.6-8.5); Neutrophils Percent Auto 84.6 % (45.5-73.1); Platelet Count Result 158 k/mm3 (150-375); Red Blood Count 2.89 M/mm3 (4.2-5.4); Red Cell Distribution Width 13.2 % (11.5-14.5); White Blood Count 11.8 K/mm3 (4.5-10.0)
[2020-04-07 18:46] LABS: Alanine Aminotransferase 17 U/L (4-35); Albumin Level 2.6 g/dL (3.5-5.1); Alkaline Phosphatase 88 U/L (38-126); Aspartate Amino Transferase 43 U/L (14-36); Bilirubin,Total 1.4 mg/dL (0.2-1.3); Blood Urea Nitrogen 39 mg/dL (7-17); Calcium 5.8 mg/dL (8.4-10.2); Carbon Dioxide 27 mmol/L (22-30); Chloride 85 mmol/L (98-107); Estimated CRCL calculation 27 ml/min; Estimated Glomerular Filt Rate 40; Glucose 90 mg/dL (65-105); Potassium 2.5 mmol/L (3.4-5.0); Sodium 122 mmol/L (137-145)
[2020-04-07 18:55] LABS: CRP 15.9 mg/dL (<1.0)
[2020-04-07 19:16] LABS: INR 1.9; Prothrombin Time 21.6 Seconds (11.1-14.7)
[2020-04-07 19:17] LABS: Lactic Acid Reflex 3.4 mmol/L (0.7-2.1); Partial Thromboplastin Time 37.3 SECONDS (22.3-36.8)
[2020-04-07 19:24] LABS: Add Urine Microscopic? YES; Appearance Urine Cloudy (Clear); Bacteria Urine Trace /hpf; Bilirubin Urine Negative (Negative); Blood Urine 1+ (Negative); Budding Yeast Urine Present /hpf; Color Urine Yellow (Yellow); Glucose Urine UA Negative (Negative); Ketones Urine Negative (Negative); Leukocyte Esterase Ur 3+ LEU/UL (Negative); Mucus Urine Rare /lpf; Nitrate Urine Negative (Negative); Protein Urine Negative (Negative); Specific Grav Ur 1.008 (1.001-1.035); Squamous Epithelial Cell Urine Rare /hpf (Few); Urobilinogen Urine Negative mg/dL (<2.0); WBC Urine >75 /hpf
[2020-04-07] MEDS: KCL 20 MEQ/SW 100 ML 100 ML 50 MEQ IVPB (20:32)
[2020-04-07] MEDS: SODIUM CHLORIDE 0.9% IV 1,000 ML 999 ML IV CONT (20:33)
[2020-04-07] MEDS: POTASSIUM CHLORIDE 20 MEQ PACKET (FOR LIQUID) 40 MEQ (20:33)
[2020-04-07] MEDS: ONDANSETRON INJ 4 MG/2 ML VIAL IV PUSH (20:46)
[2020-04-07] MEDS: MORPHINE SULFATE 4 MG/ML INJ IV PUSH (20:46)
[2020-04-07] MEDS: CALCIUM CARBONATE (OSCAL) 500 MG TABLET PO (20:53)
--- NOTE | 2020-04-07 21:20 | ADMGEN ---
This patient, Ingird Garcia, was admitted to IMU Room 207-01. Patient/family oriented to hospital policies and general routines including ID bracelet, bed and alarms, visiting hours, pain management, procedures, bathroom and other care routines, personal items, smoking policy, room service/diet, and visiting hours. Valuables list has been completed. Information on how to activate the Rapid Response Team has been discussed. Patient/Family are encouraged to report perceived risks to care and to ask questions if they do not understand what they are told or what they should do.
[2020-04-07 22:04] LABS: Reflex Lactic Acid Yes or No Add Lactic
--- NOTE | 2020-04-07 22:35 | PM.IMHP ---
H&P: HPI History of Present Illness Chief complaint: Lower extremity pain+ Narrative: This is an unfortunately chronically ill 60 year old Afrian Armenian female with known COPD, crohn's disease s/p colectomy and permanent nephrostomy tubes who is well known to our Hospitalist service for multiple admissions and returned to the hospital tonight with ongoing lower extremity pain and swelling. The patient is known to have chronic lower extremity edema (Right LE >>> Left LE) who has had multiple admissions for possible cellulitis, and most recently was seen and evaluated at [facility] on 03/28/2020 and underwent LE doppler U/S which was negative for DVT. 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 Tonight the patient presented with similar complaints of lower extremity pain, right leg worse than left. She also admits to suffering a mechanical fall at home this past Thursday and suffered head trauma. She denies passing out at that time. She did not seek medical attention for her fall. She denies any recent fevers, chills, shortness of breath, cough, sore throat, chest pain, abdominal pain, hematuria, nausea, vomiting, diarrhea or rectal bleeding. On further questioning she denies that her lower extremity edema has worsened. She also denies any recent worsening erythema. Review of Systems Review of Systems: All systems reviewed & are unremarkable except as noted in HPI and below PMFSH Past Medical History Medical History Anemia Arthritis Asthma Bowel obstruction Cervical cancer COPD (chronic obstructive pulmonary disease) Crohn's disease Depression DVT (deep venous thrombosis) Gastrointestinal ulcer GERD (gastroesophageal reflux disease) History of rectal polyps HTN (hypertension) IBS (irritable bowel syndrome) Peripheral neuropathy Renal disease Seasonal allergies Umbilical hernia UTI (urinary tract infection) Surgical History Surgical History History of colon resection History of colonoscopy Hx of section Hx of dilation and curettage Hx of nephrostomy Hx of umbilical hernia repair Family History Family History Mother Diabetes mellitus Acute myocardial infarction Congestive heart failure Hypertension Father Hypertension Social History Social History Years smoked: 25 Smoking status: Current every day smoker Tobacco type: cigarettes Second hand tobacco smoke exposure: No Alcohol intake: current Drinks per week: 1 Substance use: never Gender identity (if verbalized by the patient): Female Spiritual care concerns: No Agree to blood products: Yes Meds Home Medications and Allergies Home Medications Medication Instructions Recorded Confirmed Type diphenoxylate-atropine 2.5 2 tablet PO Q6H PRN #120 tablet 09/08/19 04/07/20 Rx mg-0.025 mg tablet Eliquis 5 mg PO BID 01/04/20 04/07/20 History furosemide 40 mg PO DAILY 01/04/20 04/07/20 History gabapentin 300 mg PO TID 01/04/20 04/07/20 History metolazone 2.5 mg PO DAILY 01/04/20 04/07/20 History zolpidem [Ambien] 5 mg PO HS PRN 01/06/20 04/07/20 History magnesium oxide 400 mg PO BID 30 Days #60 tablet 01/08/20 04/07/20 Rx miconazole nitrate [Aloe [place] 1 applic TOPICAL Q12HR #141 gm 01/08/20 04/07/20 Rx Antifungal (micon)] potassium chloride 40 meq PO BID 30 Days #120 tablet 01/08/20 04/07/20 Rx tramadol 50 mg PO Q8H PRN #15 tablet 01/08/20 04/07/20 Rx melatonin 5 mg PO HS PRN 04/07/20 04/07/20 History omeprazole 20 mg PO DAILY 04/07/20 04/07/20 History Allergies Allergy/AdvReac Type Severity Reaction Status Date / Time butorphanol Allergy Mild drove Verified 04/07/20 17:44 crazy ciprofloxacin Allergy Mild Nausea and Verified 04/07/20 17:44 Vomiting iohexol Andrew
[2020-04-07 22:40] LABS: Lactic Acid 1.5 mmol/L (0.7-2.1)
[2020-04-07] MEDS: KETOROLAC 30 MG/ML VIAL (*BKC) IV PUSH (23:00)
[2020-04-07] MEDS: ZOLPIDEM TARTRATE 5 MG TABLET PO (23:01)
[2020-04-07] MEDS: APIXABAN 5 MG TABLET PO (23:52)
[2020-04-07] MEDS: GABAPENTIN 300 MG CAPSULE PO (23:52)
[2020-04-07] MEDS: SODIUM CHLORIDE 0.9% IV 1,000 ML 125 ML IV CONT (23:55)
[2020-04-08] VITALS (20 sets, daily range): BP systolic 73–99; BP diastolic 38–61; PULSE 78–97; RESP 16–20; TEMP 35.8–37.3; O2SAT 94–100
[2020-04-08] MEDS: SODIUM CHLORIDE 0.9% IV 500 ML 999 ML IV CONT ×2 (00:43→03:49)
[2020-04-08 00:46] LABS: Blood Urea Nitrogen 35 mg/dL (7-17); Calcium 5.4 mg/dL (8.4-10.2); Carbon Dioxide 28 mmol/L (22-30); Chloride 89 mmol/L (98-107); Estimated CRCL calculation 29 ml/min; Estimated Glomerular Filt Rate 40; Glucose 95 mg/dL (65-105); Potassium 2.8 mmol/L (3.4-5.0); Sodium 123 mmol/L (137-145)
[2020-04-08] MEDS: POTASSIUM CHLORIDE 20 MEQ PACKET (FOR LIQUID) 40 MEQ PO ×2 (01:48→08:31)
[2020-04-08] MEDS: SODIUM CHLORIDE 0.9% IV 250 ML 100 ML IV CONT (02:28)
[2020-04-08 04:36] LABS: Basophils Percent Auto 0.1 % (0.2-1.2); Eosinophils Percent Auto 0.1 % (0-4.4); Immature Granulocyte Absolute 0.24 K/mm3 (0.00-0.031); Immature Granulocyte Percent A 2.2 % (0-0.5); Lymphocytes Absolute Auto 0.63 K/mm3 (0.9-3.2); Lymphocytes Percent Auto 5.8 % (18.3-44.2); Mean Corpuscular HGB Conc 35.1 g/dl (32-36); Mean Corpuscular Hemoglobin 30.5 pg (26-34); Mean Corpuscular Volume 86.9 fl (80-100); Mean Platelet Volume 9.8 fl (7.4-10.4); Monocytes Absolute Auto 0.6 K/mm3 (0.1-0.6); Neutrophils Absolute Auto 9.5 K/mm3 (1.3-6.7); Neutrophils Percent Auto 86.8 % (45.5-73.1); Platelet Count Result 90 k/mm3 (150-375); Red Blood Count 2.13 M/mm3 (4.2-5.4); Red Cell Distribution Width 13.1 % (11.5-14.5); White Blood Count 10.9 K/mm3 (4.5-10.0)
[2020-04-08 04:58] LABS: Hematocrit 18.5 % (37.0-47.0); Hemoglobin 6.5 g/dL (12.0-15.0)
[2020-04-08 05:00] LABS: Blood Urea Nitrogen 33 mg/dL (7-17); Calcium 5.1 mg/dL (8.4-10.2); Carbon Dioxide 28 mmol/L (22-30); Chloride 93 mmol/L (98-107); Estimated CRCL calculation 31 ml/min; Estimated Glomerular Filt Rate 43; Glucose 72 mg/dL (65-105); Potassium 3.3 mmol/L (3.4-5.0); Sodium 124 mmol/L (137-145)
[2020-04-08] MEDS: SODIUM CHLORIDE 0.9% IV 250 ML 999 ML IV CONT (05:50)
[2020-04-08] MEDS: APIXABAN 5 MG TABLET PO ×2 (08:30→17:57)
[2020-04-08] MEDS: PANTOPRAZOLE 40 MG TABLET PO (08:30)
[2020-04-08] MEDS: metOLazone 2.5 MG TABLET PO (08:30)
[2020-04-08] MEDS: CALCIUM CARBONATE (OSCAL) 500 MG TABLET PO ×3 (08:31→17:57)
[2020-04-08] MEDS: TUBING, BLOOD PLUM PUMP TUBING 1 EACH XX (09:02)
[2020-04-08] MEDS: SODIUM CHLORIDE 0.9% IV 250 ML 30 ML IV CONT (09:02)
--- NOTE | 2020-04-08 11:20 | PCSTNOTE ---
This pt was seen for a bedside swallow evaluation following a choking incident this morning when she took her medication. The pt reported that one of her medications was hot going down and she wasn't done with it when she tried to take her other pills, resulting in things going down the wrong pipe. Nursing reported a strange bubbling sound for several minutes after this episode. The pt has no top teeth but reports adapting her home diet to accommodate what she can and cannot chew. The pt was seated at 45 degrees in bed and given trials of thin liquid (via cup and straw) and puree. No signs of aspiration were noted, though silent aspiration cannot be ruled out at bedside. The pt did belch after the first trial of thin liquid. It is recommended for the pt to continue to receive and oral diet of regular consistency foods and thin liquids. Position during intake should be upright. She should eat independently. No skilled speech therapy is warranted at this time.
[2020-04-08] MEDS: TRAMADOL HCL 50 MG TABLET PO (12:29)
--- NOTE | 2020-04-08 13:01 | PC.NURSE ---
Patient refused PICC Line. Provided education and reapproached, but she still refused.
[2020-04-08] MEDS: SODIUM CHLORIDE 0.9% IV 1,000 ML 125 ML IV CONT (14:03)
[2020-04-08 14:09] LABS: Hematocrit 25.4 % (37.0-47.0); Hemoglobin 8.7 g/dL (12.0-15.0); Immature Reticulocyte Fraction 16.5 % (3.0-15.9); Mean Corpuscular HGB Conc 34.3 g/dl (32-36); Mean Corpuscular Hemoglobin 30.3 pg (26-34); Mean Corpuscular Volume 88.5 fl (80-100); Platelet Count Result 98 k/mm3 (150-375); Red Blood Count 2.87 M/mm3 (4.2-5.4); Red Cell Distribution Width 13.7 % (11.5-14.5); Reticulocyte Hemoglobin Conten 29.5 pg (28.2-35.7); Reticulocyte Percent 1.45 % (0.7-4.3); Reticulocytes Absolute 0.04 B/L (32.2-175.7); White Blood Count 16.5 K/mm3 (4.5-10.0)
[2020-04-08 14:19] LABS: Lactate Dehydrogenase 252 U/L (313-618)
[2020-04-08 14:49] LABS: Iron 31 ug/dL (37-170)
[2020-04-08 14:58] LABS: Percent Iron Saturation 26 % (20-50)
--- NOTE | 2020-04-08 17:11 | PM.IMPN ---
Progress Note: A&P Assessment and Plan (1) Hypokalemia: Code(s): E87.6 - Hypokalemia Status: Acute Assessment and Plan: Replace potassium. On furosemide and metolazone which is probably contributing to hypokalemia and hyponatremia Fluid restricts and hold diuretics (2) Lymphedema of both lower extremities: Code(s): I89.0 - Lymphedema, not elsewhere classified Status: Acute Assessment and Plan: Chronic. Use Anival wraps and try to decrease diuretic use (3) Malnutrition: Qualifiers: Malnutrition type: unspecified type Qualified Code(s): E46 - Unspecified protein-calorie malnutrition Code(s): E46 - Unspecified protein-calorie malnutrition Status: Chronic Assessment and Plan: Supplement diet (4) COPD (chronic obstructive pulmonary disease): Qualifiers: COPD type: unspecified COPD Qualified Code(s): J44.9 - Chronic obstructive pulmonary disease, unspecified Code(s): J44.9 - Chronic obstructive pulmonary disease, unspecified Status: Chronic Assessment and Plan: P.r.n. inhalers (5) Severe sepsis: Code(s): A41.9 - Sepsis, unspecified organism; R65.20 - Severe sepsis without septic shock Status: Acute Assessment and Plan: w/ elevated lactic acid, fever, tachycardia and hypotension. There is no definitive source of sepsis. Urinalysis is abnormal but is expected to be abnormal with her known nephrostomy tubes. Culture urine and blood and Zosyn pending those cultures (6) Anemia: Qualifiers: Anemia type: unspecified type Qualified Code(s): D64.9 - Anemia, unspecified Code(s): D64.9 - Anemia, unspecified Status: Chronic Assessment and Plan: With aggressive hydration hemoglobin dropped which is the least partially delusional. Typically hemoglobins between 7 and 9. Iron studies compatible chronic disease with high ferritin low iron and TIBC. No evidence of hemolysis transfuse to hemoglobin above 7 (7) Hypotension: Code(s): I95.9 - Hypotension, unspecified Status: Acute Assessment and Plan: Could be secondary to sepsis but looking back on records often times her blood pressures in the 80s to 90s. She is alert mentating well not tachycardic suspect this is partially chronic. Hold diuretics, antibiotics, and transfusion all should help her pressure (8) DVT (deep venous thrombosis): Code(s): I82.409 - Acute embolism and thrombosis of unspecified deep veins of unspecified lower extremity Status: Acute Assessment and Plan: Continue Eliquis (9) Chronic renal failure, stage 3 (moderate): Code(s): N18.3 - Chronic kidney disease, stage 3 (moderate) Status: Acute Assessment and Plan: Creatinine appears to be close to baseline. Monitor closely Subjective Date/time seen: 04/08/20 17:11 Interval history: Date of visit -. 60-year-old black female with history of COPD chronic renal failure stage 3 and chronic nephrostomy tube for obstructive uropathy admitted with ongoing leg pain, leukocytosis, hypo Myranda and hyponatremia. Patient denied any fever chills and no obvious source of infection other than urine which is chronic potential source. Legs do not look appreciably infected and has a chronic lymphedema. On Eliquis for history of DVT Exam Narrative: Exam Narrative: Blood pressure 84/52 pulse is 82 saturating 100% on room air afebrile Pupils equal reactive to light sclera anicteric Lungs are clear CV regular rate rhythm no murmurs Abdomen is soft nontender bowel sounds normal active Nephrostomy tube in place Extremities some chronic lymph type edema of lower extremities no obvious cellulitis Neuro alert cooperative no focal deficits Objective Data Vital Signs Vital Signs: Vital Signs - 24 hr 04/07/20 17:38 04/07/20 17:47 04/07/20 19:00 Temperature 37.8 C H Pulse Rate 108 H 95 Respiratory Rate 18 17 22 H Blood P
[2020-04-09] VITALS (9 sets, daily range): BP systolic 74–96; BP diastolic 48–58; PULSE 75–88; RESP 16–21; TEMP 36.3–37.1; O2SAT 98–100; BMI 17.6
[2020-04-09] MEDS: SODIUM CHLORIDE 0.9% IV 1,000 ML 125 ML IV CONT ×2 (00:03→10:07)
[2020-04-09] MEDS: PANTOPRAZOLE 40 MG TABLET PO (09:05)
[2020-04-09] MEDS: APIXABAN 5 MG TABLET PO ×2 (09:05→16:56)
[2020-04-09] MEDS: CALCIUM CARBONATE (OSCAL) 500 MG TABLET PO ×3 (09:05→16:56)
[2020-04-09] MEDS: metOLazone 2.5 MG TABLET PO (09:06)
[2020-04-09] MEDS: POTASSIUM CHLORIDE 20 MEQ PACKET (FOR LIQUID) 40 MEQ PO (09:06)
[2020-04-09] MEDS: TRAMADOL HCL 50 MG TABLET PO ×2 (10:10→18:03)
[2020-04-09 10:21] LABS: Basophils Percent Auto 0.3 % (0.2-1.2); Eosinophils Percent Auto 0.2 % (0-4.4); Hematocrit 24.5 % (37.0-47.0); Hemoglobin 8.1 g/dL (12.0-15.0); Immature Granulocyte Absolute 0.31 K/mm3 (0.00-0.031); Immature Granulocyte Percent A 2.6 % (0-0.5); Lymphocytes Absolute Auto 0.81 K/mm3 (0.9-3.2); Lymphocytes Percent Auto 6.8 % (18.3-44.2); Mean Corpuscular HGB Conc 33.1 g/dl (32-36); Mean Corpuscular Hemoglobin 29.7 pg (26-34); Mean Corpuscular Volume 89.7 fl (80-100); Mean Platelet Volume 10.4 fl (7.4-10.4); Monocytes Absolute Auto 0.4 K/mm3 (0.1-0.6); Monocytes Percent Auto 3.2 % (2.6-8.5); Neutrophils Absolute Auto 10.4 K/mm3 (1.3-6.7); Neutrophils Percent Auto 86.9 % (45.5-73.1); Platelet Count Result 102 k/mm3 (150-375); Red Blood Count 2.73 M/mm3 (4.2-5.4); Red Cell Distribution Width 14.6 % (11.5-14.5)
[2020-04-09 10:34] LABS: Blood Urea Nitrogen 32 mg/dL (7-17); Calcium 5.1 mg/dL (8.4-10.2); Carbon Dioxide 23 mmol/L (22-30); Chloride 97 mmol/L (98-107); Estimated CRCL calculation 33 ml/min; Estimated Glomerular Filt Rate 47; Glucose 85 mg/dL (65-105); Potassium 3.4 mmol/L (3.4-5.0); Sodium 126 mmol/L (137-145)
--- NOTE | 2020-04-09 12:24 | PC.NURSE ---
This patient, Ingrid Garcia, was transferred to [facility] on 04/09/20 at 1213. Personal belongings sent with patient. Report given to Ashley. Appropriate documentation sent with patient.
--- NOTE | 2020-04-09 13:28 | PC.NURSE ---
This patient, Ingrid Garcia, was received from [ ] on 04/09/20 at 1220. Personal belongings list checked and signed. Patient/family oriented to unit policies and routines
--- NOTE | 2020-04-09 14:22 | PC.NURSE ---
DR REDDY NOTIFIED OF BP 80/40, NO NEW ORDERS WILL MONITOR
[2020-04-09] MEDS: SILVERGEL (ELTA) 45 ML 1 APPLIC TOPICAL (15:27)
[2020-04-09] MEDS: MAGNESIUM OXIDE 400 MG TABLET PO (16:56)
[2020-04-09] MEDS: POTASSIUM CHLORIDE 20 MEQ TABLET.ER 40 MEQ PO (18:00)
--- NOTE | 2020-04-09 18:13 | PM.IMPN ---
Progress Note: A&P Assessment and Plan (1) Hypokalemia: Code(s): E87.6 - Hypokalemia Status: Acute Assessment and Plan: Replaced potassium.(3.4 today) On furosemide and metolazone which is probably contributing to hypokalemia and hyponatremia(holding furosemide) Fluid restricts (2) Lymphedema of both lower extremities: Code(s): I89.0 - Lymphedema, not elsewhere classified Status: Acute Assessment and Plan: Chronic. Use Anival wraps and try to decrease diuretic use (3) Malnutrition: Qualifiers: Malnutrition type: unspecified type Qualified Code(s): E46 - Unspecified protein-calorie malnutrition Code(s): E46 - Unspecified protein-calorie malnutrition Status: Chronic Assessment and Plan: Supplement diet (4) COPD (chronic obstructive pulmonary disease): Qualifiers: COPD type: unspecified COPD Qualified Code(s): J44.9 - Chronic obstructive pulmonary disease, unspecified Code(s): J44.9 - Chronic obstructive pulmonary disease, unspecified Status: Chronic Assessment and Plan: P.r.n. inhalers (5) Severe sepsis: Code(s): A41.9 - Sepsis, unspecified organism; R65.20 - Severe sepsis without septic shock Status: Acute Assessment and Plan: w/ elevated lactic acid, fever, tachycardia and hypotension. There is no definitive source of sepsis other than urine and growing Klesiella spec with Sen pending . Continue Zosyn pending those cultures [facility] (6) Anemia: Qualifiers: Anemia type: unspecified type Qualified Code(s): D64.9 - Anemia, unspecified Code(s): D64.9 - Anemia, unspecified Status: Chronic Assessment and Plan: With aggressive hydration hemoglobin dropped which is the least partially delusional. Typically hemoglobins between 7 and 9. Iron studies compatible chronic disease with high ferritin low iron and TIBC. No evidence of hemolysis transfuse to hemoglobin above 7 , 8.1 today (7) Hypotension: Code(s): I95.9 - Hypotension, unspecified Status: Acute Assessment and Plan: Could be secondary to sepsis but looking back on records often times her blood pressures in the 80s to 90s. She is alert mentating well not tachycardic suspect this is partially chronic. Hold furosimide,continue, antibiotics, and transfusion all should help her pressure check cortisol am (8) DVT (deep venous thrombosis): Code(s): I82.409 - Acute embolism and thrombosis of unspecified deep veins of unspecified lower extremity Status: Acute Assessment and Plan: Continue Eliquis (9) Chronic renal failure, stage 3 (moderate): Code(s): N18.3 - Chronic kidney disease, stage 3 (moderate) Status: Acute Assessment and Plan: Creatinine appears to be close to baseline. Monitor closely creatinine 1.4 today Subjective Date/time seen: 04/09/20 18:13 Interval history: Date of visit 04-09. 60-year-old black female with history of COPD chronic renal failure stage 3 and chronic nephrostomy tube for obstructive uropathy admitted with ongoing leg pain, leukocytosis, hypocalemia and hyponatremia. Patient denied any fever chills and no obvious source of infection other than urine which is chronic potential source. Legs do not look infected and has a chronic lymphedema. On Eliquis for history of DVT does feel better today with less leg pain and swelling Exam Narrative: Exam Narrative: Blood pressure 88/52 pulse is 82 saturating 100% on room air afebrile Pupils equal reactive to light sclera anicteric Lungs are clear CV regular rate rhythm no murmurs Abdomen is soft nontender bowel sounds normal active Nephrostomy tubes in place bilaterally and draining Extremities some chronic lymph type edema of lower extremities no cellulitis and edema much decreased with anival wraps Neuro alert cooperative no focal deficits Objective Data Vital Signs Vital Signs: Vital Signs - 2
[2020-04-09] MEDS: ZOLPIDEM TARTRATE 5 MG TABLET PO (20:50)
[2020-04-10] MEDS: TRAMADOL HCL 50 MG TABLET PO ×3 (03:56→18:21)
[2020-04-10 05:00] VITALS: BP 109/49; PULSE 94; RESP 21; TEMP 37.6; O2SAT 100
[2020-04-10 05:49] LABS: Basophils Percent Auto 0.1 % (0.2-1.2); Hematocrit 23.5 % (37.0-47.0); Hemoglobin 8.1 g/dL (12.0-15.0); Immature Granulocyte Absolute 0.25 K/mm3 (0.00-0.031); Immature Granulocyte Percent A 1.9 % (0-0.5); Lymphocytes Absolute Auto 1.02 K/mm3 (0.9-3.2); Lymphocytes Percent Auto 7.6 % (18.3-44.2); Mean Corpuscular HGB Conc 34.5 g/dl (32-36); Mean Corpuscular Hemoglobin 30.1 pg (26-34); Mean Corpuscular Volume 87.4 fl (80-100); Mean Platelet Volume 9.9 fl (7.4-10.4); Monocytes Absolute Auto 0.6 K/mm3 (0.1-0.6); Monocytes Percent Auto 4.3 % (2.6-8.5); Neutrophils Absolute Auto 11.5 K/mm3 (1.3-6.7); Neutrophils Percent Auto 86.1 % (45.5-73.1); Platelet Count Result 120 k/mm3 (150-375); Red Blood Count 2.69 M/mm3 (4.2-5.4); Red Cell Distribution Width 14.4 % (11.5-14.5); White Blood Count 13.4 K/mm3 (4.5-10.0)
[2020-04-10 06:01] LABS: Alanine Aminotransferase 11 U/L (4-35); Albumin Level 1.9 g/dL (3.5-5.1); Alkaline Phosphatase 69 U/L (38-126); Aspartate Amino Transferase 23 U/L (14-36); Blood Urea Nitrogen 27 mg/dL (7-17); Calcium 5.4 mg/dL (8.4-10.2); Carbon Dioxide 26 mmol/L (22-30); Chloride 100 mmol/L (98-107); Estimated CRCL calculation 31 ml/min; Estimated Glomerular Filt Rate 43; Glucose 66 mg/dL (65-105); Potassium 3.6 mmol/L (3.4-5.0); Sodium 130 mmol/L (137-145)
[2020-04-10] MEDS: MAGNESIUM OXIDE 400 MG TABLET PO ×2 (09:56→18:19)
[2020-04-10] MEDS: ERTAPENEM 1 GM/NS 50 ML 1 GM/50 ML BAG IVPB (09:56)
[2020-04-10] MEDS: SILVERGEL (ELTA) 45 ML 1 APPLIC TOPICAL (09:57)
[2020-04-10] MEDS: PANTOPRAZOLE 40 MG TABLET PO (09:57)
[2020-04-10] MEDS: CALCIUM CARBONATE (OSCAL) 500 MG TABLET PO ×3 (09:57→18:19)
[2020-04-10] MEDS: APIXABAN 5 MG TABLET PO ×2 (09:57→18:19)
[2020-04-10] MEDS: POTASSIUM CHLORIDE 20 MEQ TABLET.ER 40 MEQ PO ×2 (09:57→18:19)
[2020-04-10] MEDS: metOLazone 2.5 MG TABLET PO (09:57)
[2020-04-10 14:00] VITALS: BP 110/56; PULSE 87; RESP 16; TEMP 36.9; O2SAT 100
--- NOTE | 2020-04-10 14:08 | PM.IMPN ---
Progress Note: A&P Assessment and Plan (1) Severe sepsis: Code(s): A41.9 - Sepsis, unspecified organism; R65.20 - Severe sepsis without septic shock Status: Acute Assessment and Plan: w/ elevated lactic acid, fever, tachycardia and hypotension. There is no definitive source of sepsis but consider from urinary source. Urinalysis is abnormal and UCx growing Raoultella sensitive to Ertapenem so abx adjsuted. BCx NGTD. (2) Hypokalemia: Code(s): E87.6 - Hypokalemia Status: Acute Assessment and Plan: Potassium 2.5 on admission but normal past 2 days. Currently on replacement. Monitor serum potassium. Replace PRN. (3) Leg pain: Qualifiers: Laterality: bilateral Qualified Code(s): M79.604 - Pain in right leg; M79.605 - Pain in left leg Code(s): M79.606 - Pain in leg, unspecified Status: Chronic Assessment and Plan: Secondary to chronic lymphedema. Pain control as needed. (4) Lymphedema of both lower extremities: Code(s): I89.0 - Lymphedema, not elsewhere classified Status: Chronic Assessment and Plan: Etiology unclear. Hypoalbuminemia possibly playing a part in this. Contineu ALIA wraps. (5) Abnormal urinalysis: Code(s): R82.90 - Unspecified abnormal findings in urine Status: Acute Assessment and Plan: The patient will likely always have an abnormal urinalysis secondary to her nephrostomy tubes. Urine culture as mentioned above. Antibiotics adjusted. UA showing no protein but probably related to low albumin. Previous UA showing anywhere from 1-3+ proteinuria. Concern for nephrotic syndrome. Will check CT of the abdomen pelvis as well. Evaluate for cirrhosis given the low albumin, thrombocytopenia and anemia. (6) HTN (hypertension): Qualifiers: Hypertension type: unspecified Qualified Code(s): I10 - Essential (primary) hypertension Code(s): I10 - Essential (primary) hypertension Status: Chronic Assessment and Plan: BP still soft at times. Home antihypertensives on hold for now as the patient has been hypotensive. Might need to hold metolazone (7) Malnutrition: Qualifiers: Malnutrition type: unspecified type Qualified Code(s): E46 - Unspecified protein-calorie malnutrition Code(s): E46 - Unspecified protein-calorie malnutrition Status: Chronic Assessment and Plan: Hypoalbuminemia might be explained by poor oral intake but seems extreme and long stabding. Encourage PO nutrition. Continue dietary supplements. (8) COPD (chronic obstructive pulmonary disease): Qualifiers: COPD type: unspecified COPD Qualified Code(s): J44.9 - Chronic obstructive pulmonary disease, unspecified Code(s): J44.9 - Chronic obstructive pulmonary disease, unspecified Status: Chronic Assessment and Plan: PRN bronchodilators. (9) Hypocalcemia: Code(s): E83.51 - Hypocalcemia Status: Acute Assessment and Plan: Corrected calcium is 7.3. COntinue oral calcium replacement. (10) Crohn's disease: Code(s): K50.90 - Crohn's disease, unspecified, without complications Status: Acute Assessment and Plan: No diarrhea to suggest a protein losing enteropathy. Subjective Date/time seen: 04/10/20 14:08 Interval history: Date of visit 04-10. 60yo female with history of COPD, chronic renal failure stage 3 and chronic nephrostomy tube for obstructive uropathy admitted with ongoing leg pain, leukocytosis, hypocalcemia and hyponatremia. Patient slept well. As rhinorrhea was slight cough. The lower extremity edema been going on for about a year. Seven liquid stool with incontinence. No chest pain shortness of breath. She did have some dyspnea on exertion related to the leg pain. The leg pain is not significantly changed. Requesting discharge. Exam Narrative: Exam Narrati
[2020-04-10 20:33] VITALS: BP 73/38; PULSE 97; RESP 20; TEMP 37.4; O2SAT 100
[2020-04-10 21:22] LABS: Hepatitis B Surface Antigen Negative (Negative)
[2020-04-10 21:27] LABS: Hepatitis B Core IgM Result Negative (Negative)
[2020-04-10 21:39] LABS: Hepatitis B Surface Anti Res Negative; Hepatitis C Virus Antibody Negative (Negative)
[2020-04-10] MEDS: SODIUM CHLORIDE 0.9% IV 500 ML 999 ML IV CONT (22:27)
[2020-04-10 23:50] VITALS: BP 90/40
[2020-04-11] MEDS: SODIUM CHLORIDE 0.9% IV 500 ML 999 ML IV CONT (05:41)
[2020-04-11 05:51] VITALS: BP 78/43; PULSE 97; RESP 20; TEMP 36.8; O2SAT 98
[2020-04-11 06:22] LABS: Basophils Percent Auto 0.2 % (0.2-1.2); Eosinophils Percent Auto 0.1 % (0-4.4); Hematocrit 21.8 % (37.0-47.0); Hemoglobin 7.4 g/dL (12.0-15.0); Immature Granulocyte Absolute 0.18 K/mm3 (0.00-0.031); Immature Granulocyte Percent A 1.2 % (0-0.5); Lymphocytes Absolute Auto 1.27 K/mm3 (0.9-3.2); Lymphocytes Percent Auto 8.8 % (18.3-44.2); Mean Corpuscular HGB Conc 33.9 g/dl (32-36); Mean Corpuscular Hemoglobin 29.8 pg (26-34); Mean Corpuscular Volume 87.9 fl (80-100); Mean Platelet Volume 9.7 fl (7.4-10.4); Monocytes Absolute Auto 0.8 K/mm3 (0.1-0.6); Monocytes Percent Auto 5.5 % (2.6-8.5); Neutrophils Absolute Auto 12.1 K/mm3 (1.3-6.7); Neutrophils Percent Auto 84.2 % (45.5-73.1); Platelet Count Result 117 k/mm3 (150-375); Red Blood Count 2.48 M/mm3 (4.2-5.4); Red Cell Distribution Width 14.7 % (11.5-14.5); White Blood Count 14.4 K/mm3 (4.5-10.0)
[2020-04-11 06:31] LABS: Alanine Aminotransferase 11 U/L (4-35); Albumin Level 1.9 g/dL (3.5-5.1); Alkaline Phosphatase 74 U/L (38-126); Aspartate Amino Transferase 23 U/L (14-36); Bilirubin,Total 1.6 mg/dL (0.2-1.3); Blood Urea Nitrogen 24 mg/dL (7-17); Calcium 5.7 mg/dL (8.4-10.2); Carbon Dioxide 25 mmol/L (22-30); Chloride 102 mmol/L (98-107); Estimated CRCL calculation 37 ml/min; Estimated Glomerular Filt Rate 43; Glucose 69 mg/dL (65-105); Magnesium 0.8 mg/dL (1.6-2.3); Phosphorus 2.3 mg/dL (2.5-4.5); Potassium 4.6 mmol/L (3.4-5.0); Sodium 130 mmol/L (137-145)
[2020-04-11 06:36] LABS: Complement C3 55 mg/dL (88-165)
[2020-04-11 07:04] VITALS: BP 90/48
[2020-04-11] MEDS: MAGNESIUM SULFATE 3GM/D5W100ML 3 GM/100 ML BAG IVPB (09:00)
[2020-04-11] MEDS: POTASSIUM CHLORIDE 20 MEQ TABLET.ER 40 MEQ PO ×2 (09:00→17:50)
[2020-04-11] MEDS: POTASSIUM/PHOSPHORUS/SODIUM 1.5 GM PACKET 1 PACKET PO (09:00)
[2020-04-11] MEDS: APIXABAN 5 MG TABLET PO ×2 (09:01→17:50)
[2020-04-11] MEDS: MAGNESIUM OXIDE 400 MG TABLET PO ×2 (09:01→17:50)
[2020-04-11] MEDS: PANTOPRAZOLE 40 MG TABLET PO (09:01)
[2020-04-11] MEDS: SILVERGEL (ELTA) 45 ML 1 APPLIC TOPICAL (09:13)
[2020-04-11] MEDS: ERTAPENEM 1 GM/NS 50 ML 1 GM/50 ML BAG IVPB (12:06)
[2020-04-11 12:17] LABS: Magnesium 1.6 mg/dL (1.6-2.3)
--- NOTE | 2020-04-11 13:23 | PM.IMPN ---
Progress Note: A&P Assessment and Plan (1) Severe sepsis: Code(s): A41.9 - Sepsis, unspecified organism; R65.20 - Severe sepsis without septic shock Status: Acute Assessment and Plan: w/ elevated lactic acid, fever, tachycardia and hypotension. There is no definitive source of sepsis but consider from urinary source. Urinalysis is abnormal and UCx growing Raoultella sensitive to Ertapenem. BCx NGTD. Continue the same (2) Hypokalemia: Code(s): E87.6 - Hypokalemia Status: Acute Assessment and Plan: Potassium 2.5 on admission and replaced. Currently on replacement. Potassium normal now. Monitor serum potassium. Replace PRN. Stop replacement. (3) Leg pain: Qualifiers: Laterality: bilateral Qualified Code(s): M79.604 - Pain in right leg; M79.605 - Pain in left leg Code(s): M79.606 - Pain in leg, unspecified Status: Chronic Assessment and Plan: Secondary to chronic lymphedema. Pain control as needed. (4) Lymphedema of both lower extremities: Code(s): I89.0 - Lymphedema, not elsewhere classified Status: Chronic Assessment and Plan: Etiology unclear. Hypoalbuminemia possibly playing a part in this. Contineu ALIA wraps. Metolazone stopped due to HoTN. (5) Abnormal urinalysis: Code(s): R82.90 - Unspecified abnormal findings in urine Status: Acute Assessment and Plan: The patient will likely always have an abnormal urinalysis secondary to her nephrostomy tubes. Urine culture as mentioned above. Antibiotics adjusted. UA showing no protein but probably related to low albumin. Previous UA showing anywhere from 1-3+ proteinuria. Concern for nephrotic syndrome. CT of the abdomen pelvis not showing cirrhosis bur does show: Dilated small bowel which could reflect ileus versus partial obstruction - having loose stools so doubt ileus; will stop imodium Diffuse anasarca with asymmetric body wall edema on the right - related to the low albumin Apparent gas in the urinary bladder and vagina; consider enterovesicular and enterovaginal fistula related to treatment for cervical cancer - suspect chronic. Moderate size right and small left pleural effusions. (6) HTN (hypertension): Qualifiers: Hypertension type: unspecified Qualified Code(s): I10 - Essential (primary) hypertension Code(s): I10 - Essential (primary) hypertension Status: Chronic Assessment and Plan: BP still soft at times. Home antihypertensives on hold for now. metolazone now on hold as well. (7) Malnutrition: Qualifiers: Malnutrition type: unspecified type Qualified Code(s): E46 - Unspecified protein-calorie malnutrition Code(s): E46 - Unspecified protein-calorie malnutrition Status: Chronic Assessment and Plan: Hypoalbuminemia might be explained by poor oral intake but seems extreme and long stabding. Encourage PO nutrition. Continue dietary supplements. (8) COPD (chronic obstructive pulmonary disease): Qualifiers: COPD type: unspecified COPD Qualified Code(s): J44.9 - Chronic obstructive pulmonary disease, unspecified Code(s): J44.9 - Chronic obstructive pulmonary disease, unspecified Status: Chronic Assessment and Plan: PRN bronchodilators. (9) Hypocalcemia: Code(s): E83.51 - Hypocalcemia Status: Acute Assessment and Plan: Corrected calcium is 7.4. COntinue oral calcium replacement. (10) Crohn's disease: Code(s): K50.90 - Crohn's disease, unspecified, without complications Status: Acute Assessment and Plan: Having diarrhea. Consider a protein losing enteropathy. Subjective Date/time seen: 04/11/20 13:23 Interval history: Date of visit 6-24. 60yo female with history of COPD, chronic renal failure stage 3 and chronic nephrostomy tube for obstructive uropathy admitted with
[2020-04-11 14:00] VITALS: PULSE 100; RESP 15; TEMP 36.7; O2SAT 96
[2020-04-11 14:18] VITALS: BP 80/48
[2020-04-11] MEDS: SODIUM CHLORIDE 0.9% IV 250 ML 999 ML IV CONT (14:54)
[2020-04-11 15:53] VITALS: BP 92/50
[2020-04-11] MEDS: CALCIUM CARBONATE (OSCAL) 500 MG TABLET PO (17:50)
--- NOTE | 2020-04-11 18:39 | PM.CNNEP ---
Assessment and Plan Assessment and plan (1) Chronic kidney disease, stage 3: Code(s): N18.3 - Chronic kidney disease, stage 3 (moderate) Status: Chronic (2) Severe sepsis: Code(s): A41.9 - Sepsis, unspecified organism; R65.20 - Severe sepsis without septic shock Status: Acute (3) Malnutrition: Qualifiers: Malnutrition type: unspecified type Qualified Code(s): E46 - Unspecified protein-calorie malnutrition Code(s): E46 - Unspecified protein-calorie malnutrition Status: Chronic (4) Hypokalemia: Code(s): E87.6 - Hypokalemia Status: Acute (5) Hypotension: Code(s): I95.9 - Hypotension, unspecified Status: Acute (6) Lymphedema of both lower extremities: Code(s): I89.0 - Lymphedema, not elsewhere classified Status: Chronic Assessment and Plan: . Additional Plan Ingrid has chronic kidney disease which is a well established diagnosis and it appears to be fairly stable at this time. There is a significant concern that her severe hypoalbuminemia is playing a role with regard to her recurrent lower extremity swelling edema which is quite possible. Unfortunately, standard therapy with the use of diuretics/diuresis has not real been very impressive in improving this condition and unfortunately, this hospitalization with her associated hypotension is a relative contraindications such therapy at this time. N Conservative therapy has been instituted in the form of compression stockings as well as elevation of her lower extremities. In effort to hopefully improve her overall clinical condition, I have ordered IV albumin every 8 hr for a total of six doses to see if this would help her albumin level get closer to three a strange and perhaps maybe make it easier to find find other modes of intervention to try improve her lower extremity swelling. I am not sure I have any other suggestions / interventions to try to improve her low albumin and even IV albumin infusions is likely a temporary solution at best. I will continue follow the patient with you while she remains hospitalized make further recommendations during her hospital course. Thank you for allowing me to participate in the care this patient. History of Present Illness Reason for Consult Consult date: 04/11/20 Reason for consult: chronic renal failure and Other (Hypoalbuminemia) Chief Complaint Chief complaint: Lower extremity pain+ History of Present Illness Narrative: The patient is a 60 year old Afrian [place] female with an extensive past medical history as outlined below who presented to [facility] ER with complaints of lower extremity pain and swelling. The patient is known to have chronic lower extremity edema (Right LE >>> Left LE) who has had multiple admissions for possible cellulitis, and most recently was seen and evaluated at [facility] on 03/28/2020 and underwent LE doppler U/S which was negative for DVT. 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 The evening of admission, the patient presented with similar complaints of lower extremity pain, right leg worse than left. She also admits to suffering a mechanical fall at home this past Thursday and suffered head trauma. She denies any recent fevers, chills, shortness of breath, cough, sore throat, chest pain, abdominal pain, hematuria, nausea, vomiting, diarrhea or rectal bleeding. Workup and evaluation in the emergency room demonstrated the patient to be hypotensive, tachycardic, and with some elevated lactic acid concerning for possible early sepsis. Routine blood tests confirm the a for mention lactic acidosis as well as her known chronic kidney disease. her urinalysis was abnormal an this was thought to be the potential source of infection although given her chronic nephrostomy tubes, I suspect that her urine tests always look abnormal in general. She received aggressive IV flu
[2020-04-11] MEDS: ONDANSETRON INJ 4 MG/2 ML VIAL IV PUSH (21:04)
[2020-04-11] MEDS: ALBUMIN HUMAN 25% 12.5 GM/50ML 50 ML IVPB (21:59)
[2020-04-11 22:53] VITALS: BP 98/30; PULSE 72; RESP 18; TEMP 36.8; O2SAT 100
[2020-04-12] VITALS (11 sets, daily range): BP systolic 85–132; BP diastolic 44–73; PULSE 88–105; RESP 16–21; TEMP 36.2–37.3; O2SAT 98–100
[2020-04-12] MEDS: ALBUMIN HUMAN 25% 12.5 GM/50ML 50 ML IVPB ×2 (06:09→23:34)
[2020-04-12] MEDS: APIXABAN 5 MG TABLET PO ×2 (09:10→18:32)
[2020-04-12] MEDS: PANTOPRAZOLE 40 MG TABLET PO (09:11)
[2020-04-12] MEDS: MAGNESIUM OXIDE 400 MG TABLET PO ×2 (09:11→18:32)
[2020-04-12] MEDS: ERTAPENEM 1 GM/NS 50 ML 1 GM/50 ML BAG IVPB (09:11)
[2020-04-12] MEDS: SILVERGEL (ELTA) 45 ML 1 APPLIC TOPICAL (09:11)
--- NOTE | 2020-04-12 09:13 | PC.NURSE ---
Call to pharmacy and requested 0800 and 1200 oscal doses be sent to floor for administration.
[2020-04-12] MEDS: CALCIUM CARBONATE (OSCAL) 500 MG TABLET PO ×3 (10:06→18:32)
[2020-04-12] MEDS: ONDANSETRON INJ 4 MG/2 ML VIAL IV PUSH ×3 (10:28→21:39)
--- NOTE | 2020-04-12 10:35 | P.CDI_ITS ---
CDI Query Clarification Request - Urine culture growing greater than 100,000 CFU/mL of Raoultella (Klebsiella) ornithinolytica - Severe sepsis- there is no definitive source of sepsis but consider from urinary source and Urinalysis is abnormal and UCx growing Raoultella sensitive to Ertapenem and the patient will likely always have an abnormal urinalysis secondary to her nephrostomy tubes documented Please clarify if there is a diagnosis/suspected diagnosis for above findings: * UTI due to indwelling nephrostomy tubes * Colonization * Contamination * Other * Unable to determine <Ginger Downing RN - Last Filed: 04/12/20 10:44>
[2020-04-12 11:21] LABS: Mean Corpuscular Hemoglobin 30.2 pg (26-34); Mean Corpuscular Volume 91.4 fl (80-100); Mean Platelet Volume 10.1 fl (7.4-10.4); Platelet Count Result 105 k/mm3 (150-375); Red Blood Count 2.22 M/mm3 (4.2-5.4); Red Cell Distribution Width 14.9 % (11.5-14.5); White Blood Count 13.4 K/mm3 (4.5-10.0)
[2020-04-12 11:24] LABS: Hematocrit 20.3 % (37.0-47.0); Hemoglobin 6.7 g/dL (12.0-15.0)
[2020-04-12 11:36] LABS: Alanine Aminotransferase 10 U/L (4-35); Albumin Level 2.1 g/dL (3.5-5.1); Alkaline Phosphatase 69 U/L (38-126); Aspartate Amino Transferase 19 U/L (14-36); Bilirubin,Total 1.3 mg/dL (0.2-1.3); Blood Urea Nitrogen 20 mg/dL (7-17); Carbon Dioxide 25 mmol/L (22-30); Chloride 102 mmol/L (98-107); Estimated CRCL calculation 42 ml/min; Estimated Glomerular Filt Rate 51; Glucose 87 mg/dL (65-105); Magnesium 1.4 mg/dL (1.6-2.3); Phosphorus 2.6 mg/dL (2.5-4.5); Sodium 131 mmol/L (137-145)
--- NOTE | 2020-04-12 11:49 | PCNFU ---
Nutrition Follow-Up Complete: Underweight related to lack of calorie intake prior to admission as evidenced by BMI of 17.7. Goal:Patient to consume 75% of meals or greater. Progressing towards goal. We will continue current goal. Pt current nutrition is 4 gm Na with 1400 ml FR. Nutrition recommendation: Agree Last recorded weight is 63 kg up from 54.4 kg on admission. Bowel Motility:+BM reported 04/12 Labs Reviewed:Na 130, BUN 24,Cr 1.5,PO4 2.3 Meds Noted:Protonix,Mag Ox,Zofran Additional Notes: Oral Intakes have been 10-75% of most meals. Today patient had 2 bowls of fruit loops cereal today, 85% eaten. Having nausea and stomach pain. Diet supplements remain as Ensure Enlive 4 oz TID. Thrive Ice Cream once daily. Sodium is improving up to 130 today. Monitoring: Follow up every 5 days.
--- NOTE | 2020-04-12 12:56 | PCOTNOTE ---
Attempted to see patient this pm, however patient just got back to bed.
--- NOTE | 2020-04-12 14:35 | P.PNNP_ITS ---
Progress Note: A&P Assessment and Plan (1) Chronic kidney disease, stage 3: Code(s): N18.3 - Chronic kidney disease, stage 3 (moderate) Status: Chronic Assessment and Plan: * baseline creatinine ~ 1.4 - 1.6mg/dl * due to her anatomical issues (need for nephrostomy tubes), recurrent infections, poor oral intake(?) * renal function relatively stable (2) Severe sepsis: Code(s): A41.9 - Sepsis, unspecified organism; R65.20 - Severe sepsis without septic shoc k Status: Acute Assessment and Plan: * as noted by presentation of hypothermia, hypotension, and tachycaria * source unclear but suspect urine (although presence of nephrostomy tubes makes this difficult to interpret) * urine culture with Raoultella (Klebsiella) ornithinolytica * on antibiotics (3) Hypotension: Code(s): I95.9 - Hypotension, unspecified Status: Acute Assessment and Plan: * BP stable at this time * required multiple IV fluid boluses * follow trend of hemodynamics (4) Malnutrition: Qualifiers: Malnutrition type: unspecified type Qualified Code(s): E46 - Unspecified protein-calorie malnutrition Code(s): E46 - Unspecified protein-calorie malnutrition Status: Chronic Assessment and Plan: * poor as noted by albumin * likely contributing to edema * IV albumin q8hr for 6 doses * encourage supplements/oral intake (5) Anemia: Qualifiers: Anemia type: unspecified type Qualified Code(s): D64.9 - Anemia, unspecified Code(s): D64.9 - Anemia, unspecified Status: Chronic Assessment and Plan: * noted by AM labs * PRBC transfusion * partly related to underlying CKD * adequate iron stores by last anemia studies * consider empiric Epogen(?) (6) Hypokalemia: Code(s): E87.6 - Hypokalemia Status: Acute Assessment and Plan: * likely due to poor oral intake/malnutrition coupled with low magnesium * supplemented K+ and Mg++ today * follow trend (7) Lymphedema of both lower extremities: Code(s): I89.0 - Lymphedema, not elsewhere classified Status: Chronic Assessment and Plan: * chronic and long standing issue * continue lower extremity elevation + bob hose * continue supportive therapy Will continue to follow. Subjective Date/time seen: 04/12/20 14:35 Feels okay at the time of my visit; no acute distress and does overall feel better than on admission; no events or issues overnight or earlier this AM. Exam Narrative: Exam Narrative: General: WD/WN female in NAD Heart: normal S1 and S2; no rub Lungs: clear to auscultation Abdomen: soft, nontender, nondistended, positive bowel sounds Extremities: no cyanosis or clubbing; chronic lymphedema Skin: warm and dry Objective Data Vital Signs Vital Signs: Vital Signs Temp Pulse Resp BP Pulse Ox 04/12/20 14:20 37.0 C 89 18 90/51 L 99 04/11/20 22:53 36.8 C 72 18 98/30 L 100 04/11/20 15:53 92/50 L Intake/Output Intake/Output: Intake & Output 04/09/20 04/10/20 04/11/20 04/12/20 23:59 23:59 23:59 23:59 Intake Total 1690 2200 1920 220 Output Total 701 975 460 600 Balance 989 1225 1460 -380 Meds/Results Medications: Active Medications Generic Name Dose Route Start Last Admin Tr
--- NOTE | 2020-04-12 14:35 | PM.PNNEP ---
Progress Note: A&P Assessment and Plan (1) Chronic kidney disease, stage 3: Code(s): N18.3 - Chronic kidney disease, stage 3 (moderate) Status: Chronic Assessment and Plan: baseline creatinine ~ 1.4 - 1.6mg/dl due to her anatomical issues (need for nephrostomy tubes), recurrent infections, poor oral intake(?) renal function relatively stable (2) Severe sepsis: Code(s): A41.9 - Sepsis, unspecified organism; R65.20 - Severe sepsis without septic shock Status: Acute Assessment and Plan: as noted by presentation of hypothermia, hypotension, and tachycaria source unclear but suspect urine (although presence of nephrostomy tubes makes this difficult to interpret) urine culture with Raoultella (Klebsiella) ornithinolytica on antibiotics (3) Hypotension: Code(s): I95.9 - Hypotension, unspecified Status: Acute Assessment and Plan: BP stable at this time required multiple IV fluid boluses follow trend of hemodynamics (4) Malnutrition: Qualifiers: Malnutrition type: unspecified type Qualified Code(s): E46 - Unspecified protein-calorie malnutrition Code(s): E46 - Unspecified protein-calorie malnutrition Status: Chronic Assessment and Plan: poor as noted by albumin likely contributing to edema IV albumin q8hr for 6 doses encourage supplements/oral intake (5) Anemia: Qualifiers: Anemia type: unspecified type Qualified Code(s): D64.9 - Anemia, unspecified Code(s): D64.9 - Anemia, unspecified Status: Chronic Assessment and Plan: noted by AM labs PRBC transfusion partly related to underlying CKD adequate iron stores by last anemia studies consider empiric Epogen(?) (6) Hypokalemia: Code(s): E87.6 - Hypokalemia Status: Acute Assessment and Plan: likely due to poor oral intake/malnutrition coupled with low magnesium supplemented K+ and Mg++ today follow trend (7) Lymphedema of both lower extremities: Code(s): I89.0 - Lymphedema, not elsewhere classified Status: Chronic Assessment and Plan: chronic and long standing issue continue lower extremity elevation + bob hose continue supportive therapy Will continue to follow. Subjective Date/time seen: 04/12/20 14:35 Feels okay at the time of my visit; no acute distress and does overall feel better than on admission; no events or issues overnight or earlier this AM. Exam Narrative: Exam Narrative: General: WD/WN female in NAD Heart: normal S1 and S2; no rub Lungs: clear to auscultation Abdomen: soft, nontender, nondistended, positive bowel sounds Extremities: no cyanosis or clubbing; chronic lymphedema Skin: warm and dry Objective Data Vital Signs Vital Signs: Vital Signs Temp Pulse Resp BP Pulse Ox 04/12/20 14:20 37.0 C 89 18 90/51 L 99 04/11/20 22:53 36.8 C 72 18 98/30 L 100 04/11/20 15:53 92/50 L Intake/Output Intake/Output: Intake & Output 04/09/20 04/10/20 04/11/20 04/12/20 23:59 23:59 23:59 23:59 Intake Total 1690 2200 1920 220 Output Total 701 975 460 600 Balance 989 1225 1460 -380 Meds/Results Medications: Active Medications Generic Name Dose Route Start Last Admin Trade Name Tiesha PRN Reason Stop Dose Admin Apixaban 5 mg 04/07/20 22:50 04/12/20 09:10 Eliquis PO 5 mg BID NITESH Administration Calcium Carbonate 500 mg 04/08/20 08:00 04/12/20 14:23 Oscal 500 Mg PO 500 mg TIDWM NITESH Administration Diphenoxylate HCl/Atropine 2 tablet 04/09/20 11:23 04/11/20 09:10 Lomotil Tab 2.5 Mg PO 2 tablet Q6H PRN Administration diarrhea Ertapenem 1 gm in 50 mls @ 100 mls/hr 04/10/20 09:00 04/12/20 09:41 Invanz 1 Gm/Ns 50 Ml IVPB Infused Q24H NITESH Infusion Albumin Human 50 mls @ 50 mls/hr 04/11/20 22:00 04/12/20 07:13 Albutein IVPB 04/13/20 14:59 Infused Q8HR NITESH Infusion Sodium Chlori
--- NOTE | 2020-04-12 15:21 | PM.IMPN ---
Progress Note: A&P Assessment and Plan (1) Severe sepsis: Code(s): A41.9 - Sepsis, unspecified organism; R65.20 - Severe sepsis without septic shock Status: Acute Assessment and Plan: w/ elevated lactic acid, fever, tachycardia and hypotension. There is no definitive source of sepsis but consider from urinary source given the positive UCx. Urinalysis is abnormal and UCx growing Raoultella sensitive to Ertapenem. BCx NGTD. Continue the same. WBC improved. (2) Anemia: Qualifiers: Anemia type: unspecified type Qualified Code(s): D64.9 - Anemia, unspecified Code(s): D64.9 - Anemia, unspecified Status: Chronic Assessment and Plan: Patient with chronic anemia but Hgb dropped to 6.7 today. Transfusion ordered. No Lasix because she is still HoTN. TIBC very low related to nephrotic syndrome. Guaiac stool but if positive, could be related to Crohns (3) Hypokalemia: Code(s): E87.6 - Hypokalemia Status: Acute Assessment and Plan: Potassium 2.5 on admission and replaced. Was on scheduled replacement but stopped due to potassium remaiining normal. Potassium 5.0 but felt related to the replacement. Should correct on its own. Follow (4) Leg pain: Qualifiers: Laterality: bilateral Qualified Code(s): M79.604 - Pain in right leg; M79.605 - Pain in left leg Code(s): M79.606 - Pain in leg, unspecified Status: Chronic Assessment and Plan: Secondary to chronic lymphedema. Pain control as needed. (5) Lymphedema of both lower extremities: Code(s): I89.0 - Lymphedema, not elsewhere classified Status: Chronic Assessment and Plan: Etiology unclear. Hypoalbuminemia possibly playing a part in this. Contineu ALIA wraps. Metolazone stopped due to HoTN. (6) UTI (urinary tract infection): Code(s): N39.0 - Urinary tract infection, site not specified Status: Acute Assessment and Plan: UA noted with UCx growing Raoultella sensitive to Ertapenum. Suspect complicated UTI related to her nephrostomy tubes. WBC better. Continue the same. (7) Abnormal urinalysis: Code(s): R82.90 - Unspecified abnormal findings in urine Status: Acute Assessment and Plan: The patient will likely always have an abnormal urinalysis secondary to her nephrostomy tubes. Urine culture as mentioned above. Antibiotics adjusted. UA showing no protein but probably related to low albumin. Previous UA showing anywhere from 1-3+ proteinuria. Concern for nephrotic syndrome. CT of the abdomen pelvis not showing cirrhosis bur does show: Dilated small bowel which could reflect ileus versus partial obstruction - having loose stools so doubt ileus; imodium stopped Diffuse anasarca with asymmetric body wall edema on the right - related to the low albumin Apparent gas in the urinary bladder and vagina; consider enterovesicular and enterovaginal fistula related to treatment for cervical cancer - suspect chronic. Moderate size right and small left pleural effusions. (8) HTN (hypertension): Qualifiers: Hypertension type: unspecified Qualified Code(s): I10 - Essential (primary) hypertension Code(s): I10 - Essential (primary) hypertension Status: Chronic Assessment and Plan: BP still soft at times. Home antihypertensives on hold for now. Diuretics on hold as well. (9) Malnutrition: Qualifiers: Malnutrition type: unspecified type Qualified Code(s): E46 - Unspecified protein-calorie malnutrition Code(s): E46 - Unspecified protein-calorie malnutrition Status: Chronic Assessment and Plan: Hypoalbuminemia might be explained by poor oral intake but seems extreme and long standing. Consider nephrotic syndrome or protein losing enteropathy. Encourage PO nutrition. Continue dietary supplements. (10) COPD (chronic obstructive pulmonary di
[2020-04-12] MEDS: SODIUM CHLORIDE 0.9% IV 250 ML 30 ML IV CONT (15:39)
[2020-04-12] MEDS: MAGNESIUM SULF 2 GM/WATER 50ML 2 GM/50 ML BAG IVPB (22:31)
[2020-04-13 05:39] LABS: Basophils Percent Auto 0.3 % (0.2-1.2); Eosinophils Percent Auto 0.1 % (0-4.4); Hematocrit 30.9 % (37.0-47.0); Hemoglobin 10.2 g/dL (12.0-15.0); Immature Granulocyte Absolute 0.25 K/mm3 (0.00-0.031); Lymphocytes Absolute Auto 1.35 K/mm3 (0.9-3.2); Mean Corpuscular Hemoglobin 30.1 pg (26-34); Mean Corpuscular Volume 91.2 fl (80-100); Mean Platelet Volume 10.5 fl (7.4-10.4); Monocytes Absolute Auto 0.8 K/mm3 (0.1-0.6); Monocytes Percent Auto 6.7 % (2.6-8.5); Neutrophils Absolute Auto 9.8 K/mm3 (1.3-6.7); Neutrophils Percent Auto 79.9 % (45.5-73.1); Platelet Count Result 108 k/mm3 (150-375); Red Blood Count 3.39 M/mm3 (4.2-5.4); White Blood Count 12.3 K/mm3 (4.5-10.0)
[2020-04-13 06:00] VITALS: BP 134/77; PULSE 85; RESP 20; TEMP 36.1; O2SAT 99
[2020-04-13] MEDS: CALCIUM CARBONATE (TUMS) 500 MG (200 MG ELEMENTAL) PO (06:13)
[2020-04-13] MEDS: ALBUMIN HUMAN 25% 12.5 GM/50ML 50 ML IVPB ×2 (06:14→14:00)
[2020-04-13 08:14] LABS: Albumin Level 2.6 g/dL (3.5-5.1); Blood Urea Nitrogen 19 mg/dL (7-17); Calcium 7.8 mg/dL (8.4-10.2); Carbon Dioxide 25 mmol/L (22-30); Chloride 104 mmol/L (98-107); Estimated CRCL calculation 44 ml/min; Estimated Glomerular Filt Rate 56; Glucose 83 mg/dL (65-105); Phosphorus 3.2 mg/dL (2.5-4.5); Potassium 5.1 mmol/L (3.4-5.0); Sodium 132 mmol/L (137-145)
[2020-04-13] MEDS: ERTAPENEM 1 GM/NS 50 ML 1 GM/50 ML BAG IVPB (09:50)
[2020-04-13] MEDS: PANTOPRAZOLE 40 MG TABLET PO (09:51)
[2020-04-13] MEDS: ACETAMINOPHEN 325 MG TABLET 650 MG PO (09:51)
[2020-04-13] MEDS: CALCIUM CARBONATE (OSCAL) 500 MG TABLET PO ×3 (09:51→17:19)
[2020-04-13] MEDS: MAGNESIUM OXIDE 400 MG TABLET PO ×2 (09:51→17:19)
[2020-04-13] MEDS: SILVERGEL (ELTA) 45 ML 1 APPLIC TOPICAL (09:53)
--- NOTE | 2020-04-13 12:01 | PM.DS ---
DS: Admitting Diagnosis Admitting Diagnosis Admitting Diagnosis: Sepsis, unspecified organism DS: Discharge Diagnosis Discharge Diagnosis (1) Severe sepsis: Code(s): A41.9 - Sepsis, unspecified organism; R65.20 - Severe sepsis without septic shock Status: Acute Assessment and Plan: w/ elevated lactic acid, fever, tachycardia and hypotension. [place] source of sepsis from urinary source given the positive UCx. Urinalysis is abnormal and UCx growing Raoultella sensitive to Ertapenem. BCx NGTD. WBC improving. (2) Anemia: Qualifiers: Anemia type: unspecified type Qualified Code(s): D64.9 - Anemia, unspecified Code(s): D64.9 - Anemia, unspecified Status: Chronic Assessment and Plan: Patient with chronic anemia but Hgb dropped to 6.7. Transfusion ordered. No Lasix because she was HoTN. TIBC very low related to low albumin. Guaiac stool but if positive, could be related to Crohns. Hgb back up to 10 today. (3) Hypokalemia: Code(s): E87.6 - Hypokalemia Status: Acute Assessment and Plan: Potassium 2.5 on admission and replaced. Was on scheduled replacement but stopped due to potassium remaining normal. Potassium 5.1 but felt related to the replacement. Will hold potassium but resume lasix. (4) Leg pain: Qualifiers: Laterality: bilateral Qualified Code(s): M79.604 - Pain in right leg; M79.605 - Pain in left leg Code(s): M79.606 - Pain in leg, unspecified Status: Chronic Assessment and Plan: Secondary to chronic lymphedema. Pain control as needed. She has been on Eliquis since admission. Patient most recently was seen and evaluated at [facility] on 03/28/2020 and underwent LE doppler U/S which was negative for DVT. (5) Lymphedema of both lower extremities: Code(s): I89.0 - Lymphedema, not elsewhere classified Status: Chronic Assessment and Plan: Etiology unclear. Hypoalbuminemia possibly playing a part in this. Continue ALIA wraps. Metolazone and Lasix stopped due to HoTN. Resume lasix today since BP better. (6) UTI (urinary tract infection): Code(s): N39.0 - Urinary tract infection, site not specified Status: Acute Assessment and Plan: UA noted with UCx growing Raoultella sensitive to Ertapenum. Suspect complicated UTI related to her nephrostomy tubes. WBC better. Discussed with nephrology. She has received four doses of Ertapenum. Change to nitrofuratoin for 3 more days. (7) Abnormal urinalysis: Code(s): R82.90 - Unspecified abnormal findings in urine Status: Acute Assessment and Plan: The patient will likely always have an abnormal urinalysis secondary to her nephrostomy tubes. Urine culture as mentioned above. Antibiotics adjusted. UA showing no protein but probably related to low albumin. Previous UA showing anywhere from 1-3+ proteinuria. Concern for nephrotic syndrome. CT of the abdomen pelvis not showing cirrhosis bur does show: Dilated small bowel which could reflect ileus versus partial obstruction - having loose stools so doubt ileus; imodium stopped Diffuse anasarca with asymmetric body wall edema on the right - related to the low albumin Apparent gas in the urinary bladder and vagina; consider enterovesicular and enterovaginal fistula related to treatment for cervical cancer - suspect chronic. Moderate size right and small left pleural effusions. (8) HTN (hypertension): Qualifiers: Hypertension type: unspecified Qualified Code(s): I10 - Essential (primary) hypertension Code(s): I10 - Essential (primary) hypertension Status: Chronic Assessment and Plan: BP soft at times but better wth Albumin infusions and transfusion. Home antihypertensives were held. (9) Malnutrition: Qualifiers: Malnutrition type: unspecified type Qualified Code(s): E46 - Unspecified prot
[2020-04-13 12:14] LABS: Immunochemical Fecal Occult Bl Positive (N)
[2020-04-13 12:15] LABS: IFOB Positive Control Positive
[2020-04-13 14:00] VITALS: BP 101/59; PULSE 65; RESP 18; TEMP 36.5; O2SAT 100
--- NOTE | 2020-04-13 16:35 | PC.NURSE ---
Call to nurse Coffman at [facility]. All questions and concerns answered at this time.
[2020-04-13] MEDS: APIXABAN 5 MG TABLET PO (17:19)
[2020-04-14 03:49] LABS: Hepatitis B Core Ab Total Nonreactive (Nonreactive)
[2020-04-14 18:44] LABS: Complement Total CH50 36 U/mL (31-60)
--- NOTE | 2020-04-17 13:40 | PC.NURSE ---
PAKO is negative Hep B Core- negative Blood cx is negative Dr. Ulrich is aware.
== END 2020-04-13 17:47 | disposition swing bed (61) | DRG 698 ==
LOC: ANHED 20:54 → ANHIMU 20:59 → ANH2MED 04-09 12:15
PROVIDERS: Internal Medicine; Admitting Provider Family Medicine; Emergency Provider Emergency Medicine; PCP Physician Assistant; Visit Provider Internal Medicine
DX: T83.512A Infection and inflammatory reaction due to nephrostomy catheter, initial encounter (principal); A41.89 Other specified sepsis; R65.20 Severe sepsis without septic shock; N39.0 Urinary tract infection, site not specified; E46 Unspecified protein-calorie malnutrition; K50.90 Crohn's disease, unspecified, without complications; E87.1 Hypo-osmolality and hyponatremia; E87.6 Hypokalemia; I12.9 Hypertensive chronic kidney disease with stage 1 through stage 4 chronic kidney disease, or unspecified chronic kidney disease; N18.3 Chronic kidney disease, stage 3 (moderate); B96.89 Other specified bacterial agents as the cause of diseases classified elsewhere; I89.0 Lymphedema, not elsewhere classified; J44.9 Chronic obstructive pulmonary disease, unspecified; E83.51 Hypocalcemia; Z68.20 Body mass index [BMI] 20.0-20.9, adult; M19.90 Unspecified osteoarthritis, unspecified site; K21.9 Gastro-esophageal reflux disease without esophagitis; G62.9 Polyneuropathy, unspecified; I87.2 Venous insufficiency (chronic) (peripheral); K42.9 Umbilical hernia without obstruction or gangrene; D63.8 Anemia in other chronic diseases classified elsewhere; F32.9 Major depressive disorder, single episode, unspecified; L98.499 Non-pressure chronic ulcer of skin of other sites with unspecified severity; F17.210 Nicotine dependence, cigarettes, uncomplicated; Z86.718 Personal history of other venous thrombosis and embolism; Z85.41 Personal history of malignant neoplasm of cervix uteri; Z79.01 Long term (current) use of anticoagulants
CPT/HCPCS: 36415; 36430; 71046; 74176; 80048; 80053; 80069; 80076; 81001; 82274; 82533; 82728; 83540; 83550; 83605; 83615; 83735; 84100; 85025; 85027; 85046; 85610; 85730; 86038; 86140; 86160; 86162; 86704; 86705; 86706; 86803; 86850; 86900; 86901; 86923; 87040; 87077; 87086; 87088; 87186; 87340; 92610; 96365; 96368; 96375; 97110; 97116; 97161; 97165; 97530; 97535; 99285; A9270; J0131; J1335; J1885; J2270; J2405; J2543; J3370; J3475; J3480; J7030; J7040; J7050; P9016; P9047

== ENCOUNTER 2020-05-08 14:56 | Inpatient (IN) | payer MEDICARE, MEDICAID, SELFPAY ==
[2020-05-08] VITALS (10 sets, daily range): BP systolic 71–107; BP diastolic 40–61; PULSE 71–99; RESP 9–20; TEMP 36.5–37.4; O2SAT 95–100; BMI 18.3
--- NOTE | ~2020-05-08 | US_ITS ---
EXAMINATION: US venous doppler [facility] DATE: 05/12/2020 14:04 INDICATION: Lower limb swelling TECHNIQUE: Guo scale images without and with compression and Doppler images of the bilateral lower e xtremity veins were obtained. COMPARISON: 01/05/2020 FINDINGS: The right common femoral vein, profunda femoral vein, femoral vein, popliteal vein, peroneal trunk, p osterior tibial veins, and greater saphenous vein are patent. 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 The peroneal trunk and posterior tibial veins are patent. IMPRESSION: 1. Patent right lower extremity veins. No evidence of deep venous thrombosis. 2. 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 Reviewed, dictated and finalized at location A. IMPRESSION: 1. Patent right lower extremity veins. No evidence of deep venous thrombosis. 2. Improved but persistent chronic partial thrombosis of the left common femora l, profunda femoral, femoral, and popliteal veins.
--- NOTE | ~2020-05-08 | XR_ITS ---
EXAMINATION: XR nephrostogram DATE: 05/09/2020 11:55 INDICATION: Moderate right hydronephrosis. TECHNIQUE: I injected both nephrostomy tubes with Omnipaque 240 contrast. 5 fluoroscopic images were obtained. Fluoroscopy exposure time was 0.2 minutes. COMPARISON: CT abdomen and pelvis 05/08/2020 FINDINGS: When I disconnected the bag from the right nephrostomy tube, urine came gushing out of the tube suggesting a problem with the collection bag. I immediately injected the nephrostomy tube with c ontrast and noted moderate hydronephrosis. I then allowed the urine to drain into a new bag to reliev e the pressure. When I reinjected the right nephrostomy tube, the hydronephrosis was improved. The ri ght nephrostomy tube is in expected position, and the tube injects with no resistance. I injected the left nephrostomy tube, which is in expected position with no hydronephrosis. IMPRESSION: 1. Patent right nephrostomy tube in expected position. Resolution of right-sided hydronephrosis after exchange of the drainage bag. The nephrostomy tube itself was not changed. 2. Patent left nephrostomy tube in expected position. Reviewed, dictated and finalized at location A. IMPRESSION: 1. Patent right nephrostomy tube in expected position. Resolution of right-side d hydronephrosis after exchange of the drainage bag. The nephrostomy tube itsel f was not changed. 2. Patent left nephrostomy tube in expected position.
--- NOTE | ~2020-05-08 | US_ITS ---
EXAMINATION:US venous doppler LE BI INDICATION:History of DVT. Right leg swelling. TECHNIQUE: Multiple grayscale, color flow and Doppler images of the right and left lower extremity de ep venous systems were obtained and reviewed. COMPARISON:No prior studies for comparison. FINDINGS: The common femoral, superficial femoral and popliteal veins demonstrate normal respiratory variation, augmentation and compressibility. Color flow is also seen within the posterior tibial, pe roneal, greater saphenous and profunda veins. There is heterogeneous fluid in the mid calf on the rig ht, consistent with hematoma. IMPRESSION: 1: No lower extremity deep venous thrombosis. Reviewed, dictated and finalized at location A.
--- NOTE | ~2020-05-08 | CT_ITS ---
EXAMINATION: CT abdomen pelvis wo con EXAM DATE: 05/08/2020 16:15 INDICATION: Crohn's disease, posttraumatic scar. Left hip wound. TECHNIQUE: Spiral CT of the abdomen and pelvis was performed without contrast. Axial, coronal and s agittal images were reviewed. The dose-length product (DLP) for this examination was 252.20 mGy-cm. The exposure was tailored according to patient size (auto mA exposure control), and iterative recons truction (ASIR) was used as additional dose reduction technique. Comparison is made to prior examinat ion from 04/11/2020. FINDINGS: There is abdominal wall dehiscence. Large sacral decubitus ulcer exposing the sacrum. Anoth er ulceration along the left buttocks. The liver, spleen, adrenal glands and pancreas are unremarkab le. There is cholelithiasis within an otherwise unremarkable gallbladder. No evidence of obstructiv e biliary disease. There are bilateral nephrostomy tubes in position, however there is moderate right-sided hydrouretero nephrosis. Gas within the renal collecting systems likely introduced from the nephrostomy tubes. Mild bilateral perinephric fat stranding is unchanged. The uterus is not identified and has likely been s urgically resected. Small amount of gas in the bladder. There is no retroperitoneal or pelvic lymph adenopathy. There is moderate scattered arteriosclerotic disease. The appendix is not positively visualized. The stomach and small bowel are unremarkable. Rectosigmo id anastomosis material There is expected amount of colonic stool. No free intraperitoneal gas. T he heart is normal in size. There are no pericardial or pleural effusions. The lung bases are unrem arkable. Patient probably has sacroiliac and lower lumbar Paget's disease. Compared to previous examination, the anasarca has improved, pleural effusions and basilar atelectasi s has resolved. Moderate right-sided hydronephrosis has developed, may indicate nephrostomy malfuncti on or tube has been closed, clinical correlation. IMPRESSION: 1. Small amount of bladder gas, gas within the renal collecting system with nephrostomy tubes in pos ition. Gas probably introduced by tubes. 2. Interval development of moderate right hydronephrosis, please check nephrostomy tube for output, closure or malfunction. 3. Large sacral, left buttocks ulceration. 4. Improvement in anasarca and resolution of pleural effusions, basilar atelectasis. 5. 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 Reviewed, dictated and finalized at location A. IMPRESSION: 1. Small amount of bladder gas, gas within the renal collecting system with ne phrostomy tubes in position. Gas probably introduced by tubes. 2. Interval development of moderate right hydronephrosis, please check nephros eleazar tube for output, closure or malfunction. 3. Large sacral, left buttocks ulceration. 4. Improvement in anasarca and resolution of pleural effusions, basilar atelec tasis. 5. 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
--- NOTE | 2020-05-08 16:02 | PC.NURSE ---
Ct came to take pt, will draw pt when pt returns from ct
[2020-05-08 16:45] LABS: Basophils Percent Auto 0.2 % (0.2-1.2); Eosinophils Percent Auto 0.2 % (0-4.4); Hematocrit 23.9 % (37.0-47.0); Hemoglobin 7.7 g/dL (12.0-15.0); Immature Granulocyte Absolute 0.09 K/mm3 (0.00-0.031); Immature Granulocyte Percent A 0.6 % (0-0.5); Lymphocytes Absolute Auto 1.44 K/mm3 (0.9-3.2); Mean Corpuscular HGB Conc 32.2 g/dl (32-36); Mean Corpuscular Hemoglobin 29.7 pg (26-34); Mean Corpuscular Volume 92.3 fl (80-100); Mean Platelet Volume 9.9 fl (7.4-10.4); Monocytes Absolute Auto 0.7 K/mm3 (0.1-0.6); Monocytes Percent Auto 4.9 % (2.6-8.5); Neutrophils Absolute Auto 12.1 K/mm3 (1.3-6.7); Neutrophils Percent Auto 84.1 % (45.5-73.1); Platelet Count Result 187 k/mm3 (150-375); Red Blood Count 2.59 M/mm3 (4.2-5.4); White Blood Count 14.4 K/mm3 (4.5-10.0)
--- NOTE | 2020-05-08 16:50 | ED.GENADULT ---
HPI - General Adult General Chief complaint: Wound/Laceration Stated complaint: [place] not healing Time Seen by Provider: 05/08/20 15:08 History of Present Illness HPI narrative: Patient is a 60 y/o female complaining of tailbone pain due to open wound for last 2-3 days. Her pain is described as pressure and soreness. She rates her pain as greater than 10/10. She states that pressure and laying on her back worsens the pain. There is no pain radiation. Related Data Home Medications Medication Instructions Recorded Confirmed Eliquis 5 mg PO BID 01/04/20 04/07/20 gabapentin 300 mg PO TID 01/04/20 04/07/20 metolazone 2.5 mg PO DAILY 01/04/20 04/07/20 melatonin 5 mg PO HS PRN 04/07/20 04/07/20 omeprazole 20 mg PO DAILY 04/07/20 04/07/20 Allergies Allergy/AdvReac Type Severity Reaction Status Date / Time butorphanol Allergy Mild drove Verified 05/08/20 15:13 crazy ciprofloxacin Allergy Mild Nausea and Verified 05/08/20 15:13 Vomiting iohexol Allergy Mild Itching Verified 05/08/20 15:13 [From contrast - CT, X-RAY] metrizamide Allergy Unknown Unknown Verified 05/08/20 15:13 Contrast Media Allergy Mild Itching Uncoded 05/08/20 15:13 Review of Systems Constitutional: Constitutional: Denies chills, Denies fever(s), Denies headache(s) and Denies weakness Eyes: Eyes: Denies blurry vision ENT: Denies headache(s) and Denies neck pain Cardiovascular: Cardiovascular: Denies chest pain and Denies dyspnea Respiratory: Respiratory: Denies cough and Denies dyspnea Gastrointestinal: Gastrointestinal: Denies abdominal pain, Denies diarrhea, Denies nausea and Denies vomiting Genitourinary: Genitourinary: Denies hematuria and Denies dysuria Musculoskeletal: Musculoskeletal: Reports back pain and Denies neck pain Integumentary/Breasts: Skin/Breast: Reports sores Neurologic: Denies headache(s) and Denies weakness PMFSH Past Medical History Medical History Anemia Arthritis Asthma Bowel obstruction Cervical cancer COPD (chronic obstructive pulmonary disease) Crohn's disease Depression DVT (deep venous thrombosis) Gastrointestinal ulcer GERD (gastroesophageal reflux disease) History of rectal polyps HTN (hypertension) IBS (irritable bowel syndrome) Peripheral neuropathy Renal disease Seasonal allergies Umbilical hernia UTI (urinary tract infection) Surgical History Surgical History History of colon resection History of colonoscopy Hx of section Hx of dilation and curettage Hx of nephrostomy Hx of umbilical hernia repair Family History Family History Mother Diabetes mellitus Acute myocardial infarction Congestive heart failure Hypertension Father Hypertension Social History Social History Years smoked: 25 Smoking status: Current every day smoker Tobacco type: cigarettes Second hand tobacco smoke exposure: No Alcohol intake: current Drinks per week: 1 Substance use: never Gender identity (if verbalized by the patient): Female Spiritual care concerns: No Agree to blood products: Yes Exam Const: General: ill appearing; No in distress Nutritional Appearance: cachectic Orientation/consciousness: oriented to person, oriented to place, oriented to time and patient oriented x3 HENMT: Head: normocephalic Ears: external ears normal General nose exam: Normal external nose present Eyes: General: appearance normal, both eyes and all related structures Conjunctivae: conjunctivae normal Neck: Neck: normal visual inspection and full ROM Chest: Chest palpation & inspection: normal inspection of the chest and no tenderness Resp: Effort & Inspection: normal respiratory effort Auscultation: clear to auscultation bilaterally Cardio: Rate: regular rate Rhyt
[2020-05-08 16:56] LABS: Lactic Acid Reflex 1.7 mmol/L (0.7-2.1)
[2020-05-08 16:57] LABS: Alanine Aminotransferase 8 U/L (4-35); Albumin Level 2.1 g/dL (3.5-5.1); Alkaline Phosphatase 95 U/L (38-126); Aspartate Amino Transferase 18 U/L (14-36); Bilirubin,Total 0.5 mg/dL (0.2-1.3); Blood Urea Nitrogen 17 mg/dL (7-17); Calcium 6.8 mg/dL (8.4-10.2); Carbon Dioxide 24 mmol/L (22-30); Chloride 103 mmol/L (98-107); Estimated CRCL calculation 34 ml/min; Estimated Glomerular Filt Rate 47; Glucose 77 mg/dL (65-105); Potassium 2.9 mmol/L (3.4-5.0); Sodium 132 mmol/L (137-145)
[2020-05-08 17:03] LABS: CRP 5.6 mg/dL (<1.0)
[2020-05-08 17:10] LABS: Erythrocyte Sedimentation Rate > 140 mm/hr (0-20)
[2020-05-08] MEDS: POTASSIUM CHLORIDE 20 MEQ TABLET 40 MEQ PO (17:12)
[2020-05-08 17:43] LABS: Add Urine Microscopic? YES; Appearance Urine Cloudy (Clear); Bacteria Urine 3+ /hpf; Bilirubin Urine Negative (Negative); Blood Urine 2+ (Negative); Glucose Urine UA Negative (Negative); Ketones Urine Negative (Negative); Leukocyte Esterase Ur 3+ LEU/UL (Negative); Nitrate Urine Negative (Negative); Protein Urine Negative (Negative); Squamous Epithelial Cell Urine Few /hpf (Few); Urobilinogen Urine Negative mg/dL (<2.0); WBC Urine >75 /hpf
[2020-05-08 17:44] LABS: Color Urine Yellow (Yellow)
--- NOTE | 2020-05-08 21:03 | PC.NURSE ---
Pt given 1500ML of LR in ED, MAR will not allow me to chart this amount. Charge nurse notified of this incident as well. Pt sacral Ulcer measures 4cm X 3cm , nurse notified in report of this ulceration as well as left hip measuring 2cm X 2cm. Pt states left hip is due to the blue tip of her nephrology tube so she keeps it taped around her body to keep it from digging in her skin. Pt continues to have yellow loose BMs, has been cleaned up twice by this nurse, last cleaning was at 2119.
--- NOTE | 2020-05-08 22:30 | PC.NURSE ---
This patient, Ingrid Garcia, was admitted to IMU Room 210-01. Patient/family oriented to hospital policies and general routines including ID bracelet, bed and alarms, visiting hours, pain management, procedures, bathroom and other care routines, personal items, smoking policy, room service/diet, and visiting hours. Valuables list has been completed. Patient/Family are encouraged to report perceived risks to care and to ask questions if they do not understand what they are told or what they should do.
--- NOTE | 2020-05-08 23:27 | PM.IMHP ---
H&P: HPI History of Present Illness Chief complaint: sepsis, sacral decubitus wound Narrative: Ingrid Garcia is a 60 year old female who is known to our hospitalist group and is here frequently. The patient lives with her father and has home health come help her as as her daughter. The patient was just discharged on 04/14/2020 patient had drug resistant urinary tract infection. Patient was placed on ertapenem at that time. She had been here for severe sepsis fever tachycardia hypotension. Also her hemoglobin job down the 6.7 and her transfusion was ordered. She had guaiac stools or positive possibly related to the Crohn's. The patient came in tonight because she was complaining of tailbone pain due to open wound for the penis got worse last 2-3 days. She said she takes [place] sent home. She always has of low blood pressure when she takes it. She was rating her pain 10/10. She has bilateral nephrostomy tubes. And it was positive for UTI. I am not quite sure if this is a true UTI or if this is something that is colonized in the nephrostomy tubes. The right tube is not draining but the left [address] pelvis was perform it was read as small amount of bladder gas, gas within the renal collecting system with nephrostomy tubes in position. [place] probably introduced by tubes. Interval development of moderate right hydronephrosis please check nephrostomy tubes for output closure malfunction. Large sacral left buttocks ulceration. Improvement in anasarca and resolution of pleural effusions, basilar atelectasis. 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 The patient was started on lactated Ringer's, given potassium 40 mEq, given Rocephin and vancomycin. Potassium was 2.9. Review of Systems Review of Systems: Narrative: Patient is complaining of chills. All systems reviewed & are unremarkable except as noted in HPI and below Constitutional: Constitutional: Reports as per HPI and Reports no additional constitutional complaints Eyes: Eyes: Reports as per HPI and Reports no additional eye complaints ENT: Reports system reviewed and no additional complaints, except as documented and Reports Normal hearing present Cardiovascular: Cardiovascular: Reports no additional cardiovascular complaints Respiratory: Respiratory: Reports no additional respiratory complaints and Reports no additional respiratory complaints Gastrointestinal: Gastrointestinal: Reports as per HPI and Reports no additional gastrointestinal complaints Musculoskeletal: Musculoskeletal: Reports no additional musculoskeletal complaints Integumentary/Breasts: Skin/Breast: Reports system reviewed and no additional complaints, except as docu and Reports as per HPI Neurologic: Reports system reviewed and no additional complaints, except as documented, Reports as per HPI and Reports Normal hearing present Psychiatric: Psychiatric: Reports no additional psychiatric complaints and Reports as per HPI Endocrine: Endocrine: Reports no additional endocrine complaints Hematologic/Lymphatic: Hematologic/Lymphatic: Reports no additional hematologic/lymphatic complaints Allergic/Immunologic: Allergic/Immunologic: Reports no additional allergic/immunologic complaints [facility] Past Medical History Medical History (Updated 05/08/20 @ 23:36 by Zoila Abbott NP) Anemia Arthritis Asthma Bowel obstruction Cervical cancer radiation COPD (chronic obstructive pulmonary disease) Crohn's disease Depression DVT (deep venous thrombosis) Gastrointestinal ulcer GERD (gastroesophageal reflux disease) History of rectal polyps HTN (hypertension) IBS (irritable bowel syndrome) Peripheral neuropathy Renal disease Seasonal allergies Umbilical hernia UTI (urinary tract infection) Surgical History Surgical History (Updated 05/08/20 @ 23:36 by Zoila Abbott NP) History of colon resection History of colonoscopy Hx of section X1 Hx of dilation and curettage Hx of nephrostomy 2 t
[2020-05-09] VITALS (19 sets, daily range): BP systolic 80–106; BP diastolic 43–59; PULSE 63–90; RESP 16–24; TEMP 35.6–37.9; O2SAT 93–100; BMI 18.2
[2020-05-09 00:52] LABS: Blood Urea Nitrogen 17 mg/dL (7-17); Calcium 6.9 mg/dL (8.4-10.2); Carbon Dioxide 25 mmol/L (22-30); Chloride 106 mmol/L (98-107); Estimated CRCL calculation 37 ml/min; Estimated Glomerular Filt Rate 51; Glucose 86 mg/dL (65-105); Potassium 3.2 mmol/L (3.4-5.0); Sodium 135 mmol/L (137-145)
[2020-05-09] MEDS: traMADol HCL 50 MG TABLET PO ×2 (01:18→15:58)
[2020-05-09] MEDS: APIXABAN 5 MG TABLET PO ×3 (01:36→16:05)
[2020-05-09] MEDS: ERTAPENEM 1 GM/NS 50 ML 1 GM/50 ML BAG IVPB ×2 (01:36→21:59)
[2020-05-09] MEDS: SODIUM CHLORIDE 0.9% IV 1,000 ML 125 ML IV CONT ×2 (01:37→16:00)
[2020-05-09] MEDS: MELATONIN 5 MG TABLET PO ×2 (01:57→22:08)
[2020-05-09 04:41] LABS: Basophils Percent Auto 0.1 % (0.2-1.2); Eosinophils Absolute Auto 0.1 K/mm3 (0-0.3); Eosinophils Percent Auto 0.4 % (0-4.4); Hematocrit 21.3 % (37.0-47.0); Immature Granulocyte Absolute 0.07 K/mm3 (0.00-0.031); Immature Granulocyte Percent A 0.6 % (0-0.5); Lymphocytes Absolute Auto 1.26 K/mm3 (0.9-3.2); Lymphocytes Percent Auto 11.2 % (18.3-44.2); Mean Corpuscular HGB Conc 32.4 g/dl (32-36); Mean Corpuscular Hemoglobin 29.7 pg (26-34); Mean Corpuscular Volume 91.8 fl (80-100); Mean Platelet Volume 9.7 fl (7.4-10.4); Monocytes Absolute Auto 0.8 K/mm3 (0.1-0.6); Monocytes Percent Auto 6.9 % (2.6-8.5); Neutrophils Absolute Auto 9.1 K/mm3 (1.3-6.7); Neutrophils Percent Auto 80.8 % (45.5-73.1); Platelet Count Result 150 k/mm3 (150-375); Red Blood Count 2.32 M/mm3 (4.2-5.4); Red Cell Distribution Width 15.1 % (11.5-14.5); White Blood Count 11.3 K/mm3 (4.5-10.0)
[2020-05-09 04:57] LABS: Lactic Acid 1.3 mmol/L (0.7-2.1)
[2020-05-09 04:58] LABS: Alanine Aminotransferase 7 U/L (4-35); Albumin Level 1.8 g/dL (3.5-5.1); Alkaline Phosphatase 76 U/L (38-126); Aspartate Amino Transferase 13 U/L (14-36); Bilirubin,Total 0.3 mg/dL (0.2-1.3); Blood Urea Nitrogen 17 mg/dL (7-17); Calcium 6.8 mg/dL (8.4-10.2); Carbon Dioxide 24 mmol/L (22-30); Chloride 106 mmol/L (98-107); Estimated CRCL calculation 40 ml/min; Estimated Glomerular Filt Rate 56; Glucose 70 mg/dL (65-105); Potassium 3.6 mmol/L (3.4-5.0); Sodium 134 mmol/L (137-145)
[2020-05-09 05:03] LABS: Hemoglobin 6.9 g/dL (12.0-15.0)
[2020-05-09] MEDS: FUROSEMIDE 40 MG TABLET PO (08:59)
--- NOTE | 2020-05-09 09:02 | WPDURCON ---
Assessment and Plan Assessment and plan (1) Hydronephrosis, right: Code(s): N13.30 - Unspecified hydronephrosis Status: Acute Assessment and Plan: Per discussion with Dr. Hui, it would be our recommendation to have Interventional Radiology exchange both nephrosotmy tubes at this time. If they are unable to do so, she would need to be transferred to [facility] to have them exchanged. (2) UTI (urinary tract infection): Code(s): N39.0 - Urinary tract infection, site not specified Status: Acute Assessment and Plan: Possibly just colonization, however she is hypotensive, urine is cloudy. Cultures are pending. Continue IV antibiotics, tailor to culture results. No further intervention or evaluation from a urology standpoint at this time. Urology Consult Note HPI Date Seen: 05/09/20 Requesting Physician: Nas Ulrich MD Primary Care Provider: David Whitaker, PA Consult Narrative Narrative: Ingrid Garcia is a 60 year old female who presented to the ER with acute pain from her bed sore on her coccyx. She also noted that her nephrostomy tubes have been leaking around the tube and soaking her bed linens. She denies fever, chills, nausea, vomiting, suprapubic pain or hematuria. She states that her urine always looks cloudy in the nephrostomy bags. She is well known to our practice as we have evaluated her in the hospital several times. She is usually managed by Urology at [facility]. Her WBC is 11.3, creatinine is 1.20, she is afebrile at this time. CT scan shows a small amount of bladder gas, gas within the renal collecting system with nephrostomy tubes in position. Gas probably introduced by tubes, as well as interval development of moderate right hydronephrosis, please check nephrostomy tube for output, closure or malfunction. UA shows leukocytes and RBC's present, blood and urine cultures are pending. Her most recent change of her nephrostomy tubes was done at [facility] on 04/09/2020 and she is scheduled for another change on 05/29/2020. Review of Systems Cardiovascular: Cardiovascular: Denies chest pain Respiratory: Respiratory: Reports no additional respiratory complaints Gastrointestinal: Gastrointestinal: Denies abdominal pain, Denies nausea and Denies vomiting Genitourinary: Genitourinary: Denies hematuria, Denies pelvic pain and Denies flank pain PMFSH Past Medical History Medical History Anemia Arthritis Asthma Bowel obstruction Cervical cancer radiation COPD (chronic obstructive pulmonary disease) Crohn's disease Depression DVT (deep venous thrombosis) Gastrointestinal ulcer GERD (gastroesophageal reflux disease) History of rectal polyps HTN (hypertension) IBS (irritable bowel syndrome) Peripheral neuropathy Renal disease Seasonal allergies Umbilical hernia UTI (urinary tract infection) Surgical History Surgical History History of colon resection History of colonoscopy Hx of section X1 Hx of dilation and curettage Hx of nephrostomy 2 to Hx of umbilical hernia repair Family History Family History Mother Diabetes mellitus Acute myocardial infarction Congestive heart failure Hypertension Father Hypertension Social History Social History Social History: the patient stated that she lives with her father. She has 2 daughters. She does not have a durable power senior attorney. She is a full code. She does have home health that comes to take care for and her father does not. She does occasionally get and walk. She is and disabled. Patient occasionally drinks she may have a wine every once in a while. She may have 2-3 cigarettes a day. Smoking packs per day: 0.2 Smoking cigarettes per day: 4.0 Years smoked: 25 Oc
[2020-05-09] MEDS: MAGNESIUM OXIDE 400 MG TABLET PO ×2 (09:04→16:04)
[2020-05-09] MEDS: SILVERGEL (ELTA) 45 ML 1 APPLIC TOPICAL (09:04)
[2020-05-09] MEDS: PANTOPRAZOLE SOD SESQUIHYDRATE 20 MG TAB PO (09:05)
[2020-05-09] MEDS: POTASSIUM CHLORIDE 20 MEQ PACKET (FOR LIQUID) PO ×2 (10:00→16:07)
--- NOTE | 2020-05-09 11:33 | PCNSR ---
On 05/09/20, the student, Josh Fay, provided care and completed [facility] documentation on this patient. I have reviewed the student's documentation and agree with the findings.
--- NOTE | 2020-05-09 15:17 | PM.IMPN ---
Progress Note: A&P Assessment and Plan (1) UTI (urinary tract infection): Code(s): N39.0 - Urinary tract infection, site not specified Status: Acute Assessment and Plan: patient had drug resistant UTI just recently she was on ertapenem psych continue with ertapenem. The patient has bilateral nephrostomy tubes. The right tube is not draining but the left 1 is. Blood and urine cultures are pending 05/09/20 15:17 patient is a 60 female who resides at in patient is a bed-bound with nephrostomy tube presented emergency department with a complaint abdominal pain patient had a CT scan of the abdomen and pelvis which showed: 1. Small amount of bladder gas, gas within the renal collecting system with nephrostomy tubes in position. Gas probably introduced by tubes. 2. Interval development of moderate right hydronephrosis, please check nephrostomy tube for output, closure or malfunction. 3. Large sacral, left buttocks ulceration. patient was seen by urology team recommended Interventional Radiology follow-up to replace nephrostomy tube, and patient was seen the radiologist and following are the findings 1. Patent right nephrostomy tube in expected position. Resolution of right-sided hydronephrosis after exchange of the drainage bag. The nephrostomy tube itself was not changed. 2. Patent left nephrostomy tube in expected position. patient states the abdominal pain is better however the wound on her coccyx is causing pain, patient is seen by wound and will do the follow-up dressing change and further recommendation to follow, patient found to have anemia H&H is 6.9 and history of guaiac-positive stool most likely from her Crohn disease patient will get 1 unit of pack RBC. (2) Hydronephrosis, right: Code(s): N13.30 - Unspecified hydronephrosis Status: Acute Assessment and Plan: I did put an order in for Interventional Radiology to change out that nephrostomy tube tomorrow. There is no drainage on the right possible hydronephrosis on that side (3) Sacral wound: Qualifiers: Encounter type: initial encounter Qualified Code(s): S31.000A - Unspecified open wound of lower back and pelvis without penetration into retroperitoneum, initial encounter Code(s): S31.000A - Unspecified open wound of lower back and pelvis without penetration into retroperitoneum, initial encounter Status: Acute Assessment and Plan: wound care consult was greatly be appreciated. The ED physician felt that the patient had infected sacral wound. However the patient is incontinent with stool at this time and she has dressings on so I was not able to fully assess her wounds. She is on ertapenem (4) DVT (deep venous thrombosis): Code(s): I82.409 - Acute embolism and thrombosis of unspecified deep veins of unspecified lower extremity Status: Acute Assessment and Plan: patient had been on Eliquis cyst. Restore working on her home medications. (5) Chronic renal failure, stage 3 (moderate): Code(s): N18.3 - Chronic kidney disease, stage 3 (moderate) Status: Acute Assessment and Plan: Appears to be at her baseline (6) HTN (hypertension): Qualifiers: Hypertension type: unspecified Qualified Code(s): I10 - Essential (primary) hypertension Code(s): I10 - Essential (primary) hypertension Status: Chronic Assessment and Plan: patient's blood pressure is low so I am going to hold her pain medication and blood pressure medication. (7) Depression: Code(s): F32.9 - Major depressive disorder, single episode, unspecified Status: Acute Assessment and Plan: Continue with home medications. (8) COPD (chronic obstructive pulmonary disease): Qualifiers: COPD type: unspecified COPD Qualified Code(s): J44.9 - Chronic obstructive pulmonary disease, unspecified Code(s): J44.9 - Chronic obstructive pulmonary disease, unspec
[2020-05-09] MEDS: SODIUM CHLORIDE 0.9% IV 250 ML 30 ML IV CONT (17:09)
[2020-05-09] MEDS: TUBING, BLOOD PLUM PUMP TUBING 1 EACH XX (18:19)
[2020-05-09] MEDS: ZOLPIDEM TARTRATE 5 MG TABLET PO (21:59)
[2020-05-09 22:00] LABS: Hematocrit 25.6 % (37.0-47.0); Hemoglobin 8.3 g/dL (12.0-15.0)
[2020-05-10] VITALS (18 sets, daily range): BP systolic 96–111; BP diastolic 44–71; PULSE 72–93; RESP 16–20; TEMP 36.3–37; O2SAT 96–100
[2020-05-10 01:21] LABS: Magnesium 1.1 mg/dL (1.6-2.3)
[2020-05-10] MEDS: MAGNESIUM SULF 2 GM/WATER 50ML 2 GM/50 ML BAG IVPB (02:44)
--- NOTE | 2020-05-10 07:53 | PC.NURSE ---
05/09/20 AT 1999.....PATIENT REFUSING RECTAL TUBE.
--- NOTE | 2020-05-10 07:54 | PC.NURSE ---
05/10/20 AT 0400....PATIENT CONTINUES TO REFUSE RECTAL TUBE.
[2020-05-10] MEDS: POTASSIUM CHLORIDE 20 MEQ PACKET (FOR LIQUID) PO ×2 (08:44→16:59)
[2020-05-10] MEDS: MAGNESIUM OXIDE 400 MG TABLET PO ×2 (08:45→16:58)
[2020-05-10] MEDS: APIXABAN 5 MG TABLET PO (08:45)
[2020-05-10] MEDS: FUROSEMIDE 40 MG TABLET PO (08:45)
[2020-05-10] MEDS: SILVERGEL (ELTA) 45 ML 1 APPLIC TOPICAL (08:45)
[2020-05-10] MEDS: PANTOPRAZOLE SOD SESQUIHYDRATE 20 MG TAB PO (08:45)
[2020-05-10] MEDS: traMADol HCL 50 MG TABLET PO ×2 (08:46→21:04)
[2020-05-10 10:25] LABS: Blood Urea Nitrogen 12 mg/dL (7-17); Calcium 6.9 mg/dL (8.4-10.2); Carbon Dioxide 19 mmol/L (22-30); Chloride 113 mmol/L (98-107); Estimated CRCL calculation 43 ml/min; Estimated Glomerular Filt Rate > 60; Glucose 55 mg/dL (65-105); Sodium 137 mmol/L (137-145)
--- NOTE | 2020-05-10 10:26 | P.CDI_ITS ---
CDI Query Clarification Request - UTI has been documented - Bilateral nephrostomy tubes, indwelling, has been documented Please further specify if UTI is: * Due to indwelling nephrostomy tubes * Not due to indwelling nephrostomy tubes * Unable to determine <Ginger Downing RN - Last Filed: 05/10/20 10:30>
--- NOTE | 2020-05-10 10:26 | WPDCDIQUERY2 ---
CDI Query Clarification Request - UTI has been documented - Bilateral nephrostomy tubes, indwelling, has been documented Please further specify if UTI is: Due to indwelling nephrostomy tubes Not due to indwelling nephrostomy tubes Unable to determine <Ginger Downing RN - Last Filed: 05/10/20 10:30>
[2020-05-10 10:42] LABS: Hematocrit 26.9 % (37.0-47.0); Hemoglobin 8.6 g/dL (12.0-15.0); Mean Corpuscular Hemoglobin 29.3 pg (26-34); Mean Corpuscular Volume 91.5 fl (80-100); Mean Platelet Volume 9.5 fl (7.4-10.4); Platelet Count Result 174 k/mm3 (150-375); Red Blood Count 2.94 M/mm3 (4.2-5.4); Red Cell Distribution Width 15.9 % (11.5-14.5); White Blood Count 10.7 K/mm3 (4.5-10.0)
[2020-05-10 10:51] LABS: Glucose Point of Care 116 (65-105)
[2020-05-10 11:51] LABS: Magnesium 1.7 mg/dL (1.6-2.3)
--- NOTE | 2020-05-10 14:58 | WPDGICN ---
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 Will proceed with colonoscopy to assess area (last colonoscopy by Dr Hodge more than a year ago with poor prep) (2) Acute on chronic anemia: Code(s): D64.9 - Anemia, unspecified Status: Acute Assessment and Plan: multifactorial probably from chronic medical disease, renal disease, blood thinners, etc will assess with colonoscopy tomorrow (3) Acute on chronic renal failure: Qualifiers: Acute renal failure type: unspecified Chronic kidney disease stage: stage 3 (moderate) Qualified Code(s): N17.9 - Acute kidney failure, unspecified; N18.3 - Chronic kidney disease, stage 3 (moderate) Code(s): N17.9 - Acute kidney failure, unspecified; N18.9 - Chronic kidney disease, unspecified Status: Acute (4) Sacral wound: Qualifiers: Encounter type: initial encounter Qualified Code(s): S31.000A - Unspecified open wound of lower back and pelvis without penetration into retroperitoneum, initial encounter Code(s): S31.000A - Unspecified open wound of lower back and pelvis without penetration into retroperitoneum, initial encounter Status: Acute Assessment and Plan: deep wound, complicated but soiling wound care nurse (5) Hydronephrosis, right: Code(s): N13.30 - Unspecified hydronephrosis Status: Acute Assessment and Plan: nephrostogram reviewed (6) DVT (deep venous thrombosis): Code(s): I82.409 - Acute embolism and thrombosis of unspecified deep veins of unspecified lower extremity Status: Acute Assessment and Plan: hold eliquis today for colonoscopy tomorrow, then ok to resume GI Consult Note Consult date/time: 05/10/20 14:58 Reason for consult: diarrhea HPI: Ingrid Garcia is a 60 year old female with multiple medical problems including chronic open wound in coccyx, remote history of cervical cancer for which underwent radiation therapy in early 1999, developed sigmoid stricture and had sigmoid colectomy in 2016. Past medical records indicate Crohn's but was ruled out in fact Dr Hodge has seen the patient previously, had colonoscopy 2007 that only showed polyp and hemorrhoids (no colitis or Crohn's), then another one 11/2018 but poor prep and recommendation to repeat another one with appropriate bowel prep. She also has CKD with nephrostomy in place, chronic anemia probably from kidney disease, admitted to the hospital last month with sepsis due to UTI, also anemia with blood transfusion. She also has DVT on eliquis. She is here with more pain than usual in tailbone pain due to open wound, also mentioned persistent diarrhea for several weeks. CT scan showed small amount of bladder gas, gas within the renal collecting system with nephrostomy tubes in position. Gas probably introduced by tubes. Interval development of moderate right hydronephrosis. Large sacral, left buttocks ulceration. Nephrostogram was done and working fine. Review of Systems Constitutional: Constitutional: Denies chills and Denies headache(s) Eyes: Eyes: Denies blurry vision ENT: Reports Normal hearing present, Denies headache(s) and Denies neck pain Cardiovascular: Cardiovascular: Denies chest pain and Denies dyspnea Respiratory: Respiratory: Denies dyspnea Gastrointestinal: Gastrointestinal: Reports diarrhea Genitourinary: Comments: nephrostomy tubes in place Integumentary/Breasts: Comments: chronic wound in sacrum Neurologic: Reports Normal hearing present, Denies headache(s) and Denies weakness Psychiatric: Psychiatric: Denies anxiety Endocrine: Endocrine: Denies change in body appearance Hematologic/Lymphatic: Hematologic/Lymphatic: Denies easy bleeding Allergic/Imm
--- NOTE | 2020-05-10 16:48 | PM.IMPN ---
Progress Note: A&P Assessment and Plan (1) UTI (urinary tract infection): Code(s): N39.0 - Urinary tract infection, site not specified Status: Acute Assessment and Plan: 05/10/20 16:48 patient had drug resistant UTI just recently she was on ertapenem psych continue with ertapenem. The patient has bilateral nephrostomy tubes. The right tube is not draining but the left 1 is. Blood and urine cultures are pending patient is a 60 female who resides at in patient is a bed-bound with nephrostomy tube presented emergency department with a complaint abdominal pain patient had a CT scan of the abdomen and pelvis which showed: 1. Small amount of bladder gas, gas within the renal collecting system with nephrostomy tubes in position. Gas probably introduced by tubes. 2. Interval development of moderate right hydronephrosis, please check nephrostomy tube for output, closure or malfunction. 3. Large sacral, left buttocks ulceration. patient was seen by urology team recommended Interventional Radiology follow-up to replace nephrostomy tube, and patient was seen the radiologist and following are the findings 1. Patent right nephrostomy tube in expected position. Resolution of right-sided hydronephrosis after exchange of the drainage bag. The nephrostomy tube itself was not changed. 2. Patent left nephrostomy tube in expected position. patient states the abdominal pain is better however the wound on her coccyx is causing pain, patient is seen by wound and will do the follow-up dressing change and further recommendation to follow, patient found to have anemia H&H is 6.9 and history of guaiac-positive stool most likely from her Crohn disease patient will get 1 unit of pack RBC. today patient seen by GI does not suspect Crohn disease and patient is scheduled colonoscopy tomorrow and further recommendation to follow, urine culture is growing Raoultella ornithinolytica resistant several antibiotic sensitive to Ertapenem will continue, patient with hypokalemia and hypomagnesium most likely secondary to diarrhea will monitor and supplement. (2) Hydronephrosis, right: Code(s): N13.30 - Unspecified hydronephrosis Status: Acute Assessment and Plan: I did put an order in for Interventional Radiology to change out that nephrostomy tube tomorrow. There is no drainage on the right possible hydronephrosis on that side (3) Sacral wound: Qualifiers: Encounter type: initial encounter Qualified Code(s): S31.000A - Unspecified open wound of lower back and pelvis without penetration into retroperitoneum, initial encounter Code(s): S31.000A - Unspecified open wound of lower back and pelvis without penetration into retroperitoneum, initial encounter Status: Acute Assessment and Plan: wound care consult was greatly be appreciated. The ED physician felt that the patient had infected sacral wound. However the patient is incontinent with stool at this time and she has dressings on so I was not able to fully assess her wounds. She is on ertapenem (4) DVT (deep venous thrombosis): Code(s): I82.409 - Acute embolism and thrombosis of unspecified deep veins of unspecified lower extremity Status: Acute Assessment and Plan: patient had been on Eliquis cyst. Restore working on her home medications. (5) Chronic renal failure, stage 3 (moderate): Code(s): N18.3 - Chronic kidney disease, stage 3 (moderate) Status: Acute Assessment and Plan: Appears to be at her baseline (6) HTN (hypertension): Qualifiers: Hypertension type: unspecified Qualified Code(s): I10 - Essential (primary) hypertension Code(s): I10 - Essential (primary) hypertension Status: Chronic Assessment and Plan: patient's blood pressure is low so I am going to hold her pain medication and blood pressure medication. (7) Depression: Code(s): F32.9 - Major depressive disorder, si
--- NOTE | 2020-05-10 16:54 | WPDANESEPP ---
Anes - Eval Pre Procedure Procedure: Operation Date: 05/11/20 12:30 Proposed Procedures p Colonoscopy - Buzz Osorio MD Date/Time: 05/10/20 16:54 Pre Op Diagnosis: sepsis, sacral decubitus wound Patient Data Age: 60 Gender: F Height: 5 ft 9 in Weight: 55.9 kg Last Vital Signs Temp 98.1 F 05/10/20 12:20 Pulse 84 05/10/20 14:00 Resp 20 05/10/20 12:20 BP 111/53 L 05/10/20 12:20 Pulse Ox 100 05/10/20 12:20 Allergies Allergy/AdvReac Type Severity Reaction Status Date / Time butorphanol Allergy Mild drove Verified 05/08/20 15:13 crazy ciprofloxacin Allergy Mild Nausea and Verified 05/08/20 15:13 Vomiting iohexol Allergy Mild Itching Verified 05/08/20 15:13 [From contrast - CT, X-RAY] metrizamide Allergy Unknown Unknown Verified 05/08/20 15:13 Contrast Media Allergy Mild Itching Uncoded 05/08/20 15:13 Home Medications Medication Instructions Recorded Confirmed Type Eliquis 5 mg PO BID 01/04/20 05/08/20 History Aloe [place] Antifungal (micon) 1 applic TOPICAL Q12HR #141 gm 01/08/20 05/08/20 Rx magnesium oxide 400 mg PO BID 30 Days #60 tablet 01/08/20 05/08/20 Rx melatonin 5 mg PO HS PRN 04/07/20 05/08/20 History omeprazole 20 mg PO DAILY 04/07/20 05/08/20 History furosemide 40 mg PO DAILY #0 tablet 04/13/20 05/08/20 Rx silver [Silver-Sept] 1 applic TOPICAL DAILY #45 gm 04/13/20 05/08/20 Rx albuterol sulfate 1 puff INHALATION Q6H PRN 05/08/20 05/08/20 History hydrocodone-acetaminophen 1 tablet PO Q6H PRN 05/08/20 05/08/20 History potassium chloride 20 meq PO BID 05/08/20 05/08/20 History tramadol 50 mg PO Q8H PRN 05/08/20 05/08/20 History zolpidem [Ambien] 5 mg PO HS 05/08/20 05/08/20 History Laboratory Tests 05/09/20 05/09/20 05/10/20 07:00 21:54 00:36 WBC RBC Hgb 8.3 g/dL L g/dL (12.0-15.0) Hct 25.6 % L % (37.0-47.0) MCV MCH MCHC RDW Plt Count MPV Sodium Potassium Chloride Carbon Dioxide Anion Gap BUN Creatinine Estim Creat Clear Calc Estimated GFR Glucose POC Capillary Glucose Calcium Magnesium 1.1 mg/dL L mg/dL (1.6-2.3) Crossmatch See Detail 05/10/20 05/10/20 05/10/20 09:50 09:50 10:33 WBC 10.7 K/mm3 H K/mm3 (4.5-10.0) RBC 2.94 M/mm3 L M/mm3 (4.2-5.4) Hgb 8.6 g/dL L g/dL (12.0-15.0) Hct 26.9 % L % (37.0-47.0) MCV 91.5 fl fl (80-100) MCH 29.3 pg pg (26-34) MCHC 32.0 g/dl g/dl (32-36) RDW 15.9 % H % (11.5-14.5) Plt Count 174 k/mm3 k/mm3 (150-375) MPV 9.5 fl fl (7.4-10.4) Sodium 137 mmol/L mmol/L (137-145) Potassium 3.0 mmol/L L mmol/L (3.4-5.0) Chloride 113 mmol/L H mmol/L (98-107) Carbon Dioxide 19 mmol/L L mmol/L (22-30) Anion Gap 8.0 mmol/L mmol/L (7-16) BUN 12 mg/dL D mg/dL (7-17) Creatinine 1.10 mg/dL H mg/dL (0.7-1.0) Estim Creat Clear Calc 43 ml/min ml/min Estimated GFR > 60 (59 - ) Glucose 55 mg/dL L* mg/dL (65-105) POC Capillary Glucose Calcium 6.9 mg/dL L mg/dL (8.4-10.2) Magnesium 1.7 mg/dL mg/dL (1.6-2.3) Crossmatch 05/10/20 10:46 WBC RBC Hgb Hct MCV MCH MCHC RDW Plt Count MPV Sodium Potassium Chloride Carbon Dioxide Anion Gap BUN Creatinine Estim Creat Clear Calc Estimated GFR Glucose POC Capillary Glucose 116 mg/dl H mg/dl (65-105) Calcium Magnesium Crossmatch Patient hx anesthesia problems: non
[2020-05-10 17:07] LABS: Glucose Point of Care 162 (65-105)
[2020-05-10] MEDS: BISACODYL 5 MG TABLET EC 20 MG PO (21:03)
[2020-05-10] MEDS: SODIUM CHLORIDE 0.9% IV 1,000 ML 125 ML IV CONT (21:03)
[2020-05-10] MEDS: PEG (High)/E-LYTE SOLN 4,000 ML BTL 4000 ML PO (21:04)
[2020-05-10] MEDS: ERTAPENEM 1 GM/NS 50 ML 1 GM/50 ML BAG IVPB (23:11)
[2020-05-11] VITALS (13 sets, daily range): BP systolic 92–114; BP diastolic 53–71; PULSE 63–112; RESP 16–18; TEMP 36.8–38; O2SAT 98–100
[2020-05-11] MEDS: SODIUM CHLORIDE 0.9% IV 1,000 ML 125 ML IV CONT ×3 (04:50→18:43)
[2020-05-11 05:14] LABS: Hematocrit 25.4 % (37.0-47.0); Hemoglobin 8.2 g/dL (12.0-15.0); Mean Corpuscular HGB Conc 32.3 g/dl (32-36); Mean Corpuscular Hemoglobin 29.2 pg (26-34); Mean Corpuscular Volume 90.4 fl (80-100); Mean Platelet Volume 9.4 fl (7.4-10.4); Platelet Count Result 187 k/mm3 (150-375); Red Blood Count 2.81 M/mm3 (4.2-5.4); Red Cell Distribution Width 15.6 % (11.5-14.5)
[2020-05-11 05:25] LABS: Anion Gap 7.2 mmol/L (7-16); Blood Urea Nitrogen 9 mg/dL (7-17); Calcium 7.1 mg/dL (8.4-10.2); Carbon Dioxide 21 mmol/L (22-30); Chloride 114 mmol/L (98-107); Estimated CRCL calculation 45 ml/min; Estimated Glomerular Filt Rate > 60; Glucose 89 mg/dL (65-105); Magnesium 1.4 mg/dL (1.6-2.3); Potassium 3.2 mmol/L (3.4-5.0); Sodium 139 mmol/L (137-145)
[2020-05-11] MEDS: MAGNESIUM CITRATE 300 ML BTL PO (06:13)
[2020-05-11] MEDS: POTASSIUM CHLORIDE 20 MEQ PACKET (FOR LIQUID) PO ×2 (08:47→17:34)
[2020-05-11] MEDS: MAGNESIUM SULF 2 GM/WATER 50ML 2 GM/50 ML BAG IVPB (08:47)
[2020-05-11] MEDS: FUROSEMIDE 40 MG TABLET PO (08:48)
[2020-05-11] MEDS: MAGNESIUM OXIDE 400 MG TABLET PO ×2 (08:48→17:34)
[2020-05-11] MEDS: PANTOPRAZOLE SOD SESQUIHYDRATE 20 MG TAB PO (08:48)
[2020-05-11] MEDS: SILVERGEL (ELTA) 45 ML 1 APPLIC TOPICAL (08:50)
--- NOTE | 2020-05-11 11:09 | PCNFU ---
Nutrition Follow-Up Complete: Increase protien needs related to healing as evidenced by stage 4 pressure ulcer. Goal: Patient to consume 75% or more of meals Patient is progressing towards goal at 25% Pt current nutrition is NPO. Nutrition recommendation: Agree with current recommendations. Recommend continuing ensure clear (240 kcal and 9 grams protein per serving) TID and thrive BID (300 kcal and 9 grams protein per serving). Last recorded weight is 52.8 kg. Bowel Motility: patient experiencing diarrhea. Latest occurrence this AM at 4:00 Labs Reviewed: Hgb (8.2) Hct (25.4) K (3.2) Meds Noted: proventil, eliquis, lasix, magensium oxide, protonix, pottasium chloride, ultram, ambien Additional Notes: Patient currently NPO for colonoscopy. Prior to NPO patient nutrition was regular diet and patient reported good appetite and stated was feeling hungry. 05/10/20 patient consumed 25% of lunch and refused dinner. After NPO status recommend patient return to regular diet and continue supplements. Follow up in 3 days
--- NOTE | 2020-05-11 12:02 | PCNSR ---
On 05/11/20, the student, Josh Fay, provided care and completed [facility] documentation on this patient. I have reviewed the student's documentation and agree with the findings.
--- NOTE | 2020-05-11 12:11 | WPDANESEPPF ---
Anes - Initial Pre Proc Eval Procedure: Operation Date: 05/11/20 12:30 Proposed Procedures p Colonoscopy - Buzz Osorio MD Date/Time: 05/11/20 12:11 Surgeon: Nas Ulrich MD Pre Op Diagnosis: sepsis, sacral decubitus wound Patient Data Age: 60 Gender: F Height: 5 ft 9 in Weight: 52.8 kg Last Vital Signs Temp 100.4 F H 05/11/20 08:00 Pulse 72 05/11/20 10:00 Resp 18 05/11/20 08:00 BP 104/57 L 05/11/20 08:00 Pulse Ox 100 05/11/20 08:00 Allergies Allergy/AdvReac Type Severity Reaction Status Date / Time butorphanol Allergy Mild drove Verified 05/08/20 15:13 crazy ciprofloxacin Allergy Mild Nausea and Verified 05/08/20 15:13 Vomiting iohexol Allergy Mild Itching Verified 05/08/20 15:13 [From contrast - CT, X-RAY] metrizamide Allergy Unknown Unknown Verified 05/08/20 15:13 Contrast Media Allergy Mild Itching Uncoded 05/08/20 15:13 Home Medications Medication Instructions Recorded Confirmed Type Eliquis 5 mg PO BID 01/04/20 05/08/20 History Aloe [place] Antifungal (micon) 1 applic TOPICAL Q12HR #141 gm 01/08/20 05/08/20 Rx magnesium oxide 400 mg PO BID 30 Days #60 tablet 01/08/20 05/08/20 Rx melatonin 5 mg PO HS PRN 04/07/20 05/08/20 History omeprazole 20 mg PO DAILY 04/07/20 05/08/20 History furosemide 40 mg PO DAILY #0 tablet 04/13/20 05/08/20 Rx silver [Silver-Sept] 1 applic TOPICAL DAILY #45 gm 04/13/20 05/08/20 Rx albuterol sulfate 1 puff INHALATION Q6H PRN 05/08/20 05/08/20 History hydrocodone-acetaminophen 1 tablet PO Q6H PRN 05/08/20 05/08/20 History potassium chloride 20 meq PO BID 05/08/20 05/08/20 History tramadol 50 mg PO Q8H PRN 05/08/20 05/08/20 History zolpidem [Ambien] 5 mg PO HS 05/08/20 05/08/20 History Laboratory Tests 05/10/20 05/11/20 05/11/20 16:27 04:48 04:48 WBC 13.0 K/mm3 H K/mm3 (4.5-10.0) RBC 2.81 M/mm3 L M/mm3 (4.2-5.4) Hgb 8.2 g/dL L g/dL (12.0-15.0) Hct 25.4 % L % (37.0-47.0) MCV 90.4 fl fl (80-100) MCH 29.2 pg pg (26-34) MCHC 32.3 g/dl g/dl (32-36) RDW 15.6 % H % (11.5-14.5) Plt Count 187 k/mm3 k/mm3 (150-375) MPV 9.4 fl fl (7.4-10.4) Sodium 139 mmol/L mmol/L (137-145) Potassium 3.2 mmol/L L mmol/L (3.4-5.0) Chloride 114 mmol/L H mmol/L (98-107) Carbon Dioxide 21 mmol/L L mmol/L (22-30) Anion Gap 7.2 mmol/L mmol/L (7-16) BUN 9 mg/dL mg/dL (7-17) Creatinine 1.00 mg/dL mg/dL (0.7-1.0) Estim Creat Clear Calc 45 ml/min ml/min Estimated GFR > 60 (59 - ) Glucose 89 mg/dL mg/dL (65-105) POC Capillary Glucose 162 mg/dl H mg/dl (65-105) Calcium 7.1 mg/dL L mg/dL (8.4-10.2) Magnesium 1.4 mg/dL L mg/dL (1.6-2.3) Patient hx anesthesia problems: none Family hx anesthesia problems: none PMFSH Past Medical History Medical History Acute on chronic anemia Anemia Arthritis Asthma Bowel obstruction Cervical cancer radiation COPD (chronic obstructive pulmonary disease) Crohn's disease Depression Diarrhea DVT (deep venous thrombosis) Gastrointestinal ulcer GERD (gastroesophageal reflux disease) History of rectal polyps HTN (hypertension) IBS (irritable bowel syndrome) Peripheral neuropathy Renal disease Seasonal allergies Umbilical hernia UTI (urinary tract infection) Surgical History Surgical History History of colon resection History of colonoscopy Hx of section X1 Hx of dilation and curettage Hx of nephrostomy 2 to Hx of umbilical hernia repair Family History Family History Mother Diabetes mellitus Acute myocardial infarction Congestive heart failure Hypertension Fa
[2020-05-11] MEDS: LACTATED RINGERS 1,000 ML 150 ML IV CONT (12:22)
--- NOTE | 2020-05-11 14:09 | PCPTNOTE ---
Attempted PT evaluation. Pt just got back to room from procedure and requests to rest secondary to fatigue. Will try again at a later time.
--- NOTE | 2020-05-11 14:09 | PCOTNOTE ---
OT evaluation attempted this date. Patient adamantly refusing therapy at this time due to fatigue and having just gotten back from procedure. Patient agreeable to completing evaluation tomorrow AM.
--- NOTE | 2020-05-11 16:09 | PM.CNGS ---
Assessment and Plan Assessment and plan (1) Stricture of descending colon: Code(s): K56.699 - Other intestinal obstruction unspecified as to partial versus complete obstruction Status: Acute Assessment and Plan: Noted on colonoscopy today. Unable to pass through the stricture during the colonoscopy. Patient is not having any obstructive signs as of now. +Bowel function, abdominal exam is benign, and she was previously tolerating a diet. Will allow her to try the soft diet and if she is able to tolerate this, then we will continue to treat conservatively. With her multiple co-morbidities, previous pelvic radiation, multiple abdominal surgeries, this patient is a high risk surgical candidate. If the patient does tolerate a diet without any obstructive signs, then we would be able to eventually discharge her and would recommend follow-up with [facility] as an outpatient due to her high risks and previous surgery at this hospital. Thank you for allowing us to see the patient in consultation and we will continue to follow along with you. (2) Anticoagulated by anticoagulation treatment: Code(s): Z79.01 - [facility] (current) use of anticoagulants Status: Acute Assessment and Plan: Eliquis currently on hold and will be held for 2 days per GI. (3) DVT (deep venous thrombosis): Code(s): I82.409 - Acute embolism and thrombosis of unspecified deep veins of unspecified lower extremity Status: Acute Assessment and Plan: Anticoagulation currently being held. (4) Acute on chronic anemia: Code(s): D64.9 - Anemia, unspecified Status: Acute Assessment and Plan: 1 unit PRBC transfused on this admission. Continue to monitor H/H. Stable at 8.2 today. No signs of active bleeding/hemorrhage. (5) Diarrhea: Code(s): R19.7 - Diarrhea, unspecified Status: Acute Assessment and Plan: Question of diagnosis of Crohn's disease. No confirmed diagnosis. Colonoscopy today, see report. GI following. (6) Hydronephrosis, right: Code(s): N13.30 - Unspecified hydronephrosis Status: Acute Assessment and Plan: Right nephrostomy tube exchanged. Urology following. (7) Sacral wound: Qualifiers: Encounter type: initial encounter Qualified Code(s): S31.000A - Unspecified open wound of lower back and pelvis without penetration into retroperitoneum, initial encounter Code(s): S31.000A - Unspecified open wound of lower back and pelvis without penetration into retroperitoneum, initial encounter Status: Acute Assessment and Plan: Stable stage IV sacral decubitus ulcer. Continue local wound care. (8) UTI (urinary tract infection): Code(s): N39.0 - Urinary tract infection, site not specified Status: Acute (9) Chronic kidney disease, stage 3: Code(s): N18.3 - Chronic kidney disease, stage 3 (moderate) Status: Chronic (10) Malnutrition: Qualifiers: Malnutrition type: unspecified type Qualified Code(s): E46 - Unspecified protein-calorie malnutrition Code(s): E46 - Unspecified protein-calorie malnutrition Status: Chronic (11) COPD (chronic obstructive pulmonary disease): Qualifiers: COPD type: unspecified COPD Qualified Code(s): J44.9 - Chronic obstructive pulmonary disease, unspecified Code(s): J44.9 - Chronic obstructive pulmonary disease, unspecified Status: Chronic (12) HTN (hypertension): Qualifiers: Hypertension type: unspecified Qualified Code(s): I10 - Essential (primary) hypertension Code(s): I10 - Essential (primary) hypertension Status: Chronic Additional Plan Discussed the patient's case and plan of care with Dr. Campo. History of Present Illness Consult details Consult date: 05/11/20 Reason for consult: other (Descending colon stricture found on colonoscopy today) Requesting physician: Buzz Osorio
--- NOTE | 2020-05-11 17:13 | PM.IMPN ---
Progress Note: A&P Assessment and Plan (1) UTI (urinary tract infection): Code(s): N39.0 - Urinary tract infection, site not specified Status: Acute Assessment and Plan: 05/11/20 17:13 patient had drug resistant UTI just recently she was on ertapenem psych continue with ertapenem. The patient has bilateral nephrostomy tubes. The right tube is not draining but the left 1 is. Blood and urine cultures are pending patient is a 60 female who resides at in patient is a bed-bound with nephrostomy tube presented emergency department with a complaint abdominal pain patient had a CT scan of the abdomen and pelvis which showed: 1. Small amount of bladder gas, gas within the renal collecting system with nephrostomy tubes in position. Gas probably introduced by tubes. 2. Interval development of moderate right hydronephrosis, please check nephrostomy tube for output, closure or malfunction. 3. Large sacral, left buttocks ulceration. patient was seen by urology team recommended Interventional Radiology follow-up to replace nephrostomy tube, and patient was seen the radiologist and following are the findings 1. Patent right nephrostomy tube in expected position. Resolution of right-sided hydronephrosis after exchange of the drainage bag. The nephrostomy tube itself was not changed. 2. Patent left nephrostomy tube in expected position. patient states the abdominal pain is better however the wound on her coccyx is causing pain, patient is seen by wound and will do the follow-up dressing change and further recommendation to follow, patient found to have anemia H&H is 6.9 and history of guaiac-positive stool most likely from her Crohn disease patient will get 1 unit of pack RBC. today patient seen by GI does not suspect Crohn disease and patient is scheduled colonoscopy tomorrow and further recommendation to follow, urine culture is growing Raoultella ornithinolytica resistant several antibiotic sensitive to Ertapenem will continue, patient with hypokalemia and hypomagnesium most likely secondary to diarrhea will monitor and supplement. today patient was seen by GI and had colonoscopy which showed colonic stricture and stenosis most likely secondary to previous radiation therapy, GI was not able traverse the score or dilate stenosis, patient is seen by general surgery patient is a very high risk of surgery patient has had several abdominal surgery in the past and radiation therapy, will continue conservative management with soft diet and monitor. Patient wound is growing Raoultella ornithinolytica as well as E coli ESBL, her urine culture is also growing Raoultella ornithinolytica both organisms are resistant to several antibiotics but sensitive to ertapenem will continue. her UTI most likely secondary to indwelling nephrostomy tubes. (2) Hydronephrosis, right: Code(s): N13.30 - Unspecified hydronephrosis Status: Acute Assessment and Plan: I did put an order in for Interventional Radiology to change out that nephrostomy tube tomorrow. There is no drainage on the right possible hydronephrosis on that side (3) Sacral wound: Qualifiers: Encounter type: initial encounter Qualified Code(s): S31.000A - Unspecified open wound of lower back and pelvis without penetration into retroperitoneum, initial encounter Code(s): S31.000A - Unspecified open wound of lower back and pelvis without penetration into retroperitoneum, initial encounter Status: Acute Assessment and Plan: wound care consult was greatly be appreciated. The ED physician felt that the patient had infected sacral wound. However the patient is incontinent with stool at this time and she has dressings on so I was not able to fully assess her wounds. She is on ertapenem (4) DVT (deep venous thrombosis): Code(s): I82.409 - Acute embolism and thrombosis of unspecified deep veins of unspecified lower extremity Status: Acute Asses
[2020-05-11] MEDS: traMADol HCL 50 MG TABLET PO (17:34)
--- NOTE | 2020-05-11 19:28 | PC.NURSE ---
This patient, Ingrid Garcia, was transferred to [facility] on 05/11/20 at 1928. Personal belongings sent with patient. Belongings list checked and signed with receiving RN. Report given to ADI Peguero. Appropriate documentation sent with patient.
--- NOTE | 2020-05-11 20:37 | PC.NURSE ---
This patient, Ingrid Garcia, was received from [U 210/01 ] on 05/11/20 at 1945. Personal belongings list checked and signed. Patient/family oriented to unit policies and routines
[2020-05-11] MEDS: ZOLPIDEM TARTRATE 5 MG TABLET PO (22:05)
[2020-05-11] MEDS: ERTAPENEM 1 GM/NS 50 ML 1 GM/50 ML BAG IVPB (22:05)
[2020-05-12] MEDS: SODIUM CHLORIDE 0.9% IV 1,000 ML 125 ML IV CONT ×2 (04:54→11:14)
[2020-05-12] MEDS: traMADol HCL 50 MG TABLET PO ×2 (04:54→15:55)
[2020-05-12 06:53] LABS: Hematocrit 27.6 % (37.0-47.0); Hemoglobin 8.7 g/dL (12.0-15.0); Mean Corpuscular HGB Conc 31.5 g/dl (32-36); Mean Corpuscular Hemoglobin 29.5 pg (26-34); Mean Corpuscular Volume 93.6 fl (80-100); Mean Platelet Volume 9.4 fl (7.4-10.4); Platelet Count Result 167 k/mm3 (150-375); Red Blood Count 2.95 M/mm3 (4.2-5.4); Red Cell Distribution Width 15.7 % (11.5-14.5); White Blood Count 8.7 K/mm3 (4.5-10.0)
[2020-05-12 07:05] VITALS: BP 108/62; PULSE 88; RESP 18; TEMP 36.9; O2SAT 97
[2020-05-12 07:11] LABS: Anion Gap 6.5 mmol/L (7-16); Blood Urea Nitrogen 8 mg/dL (7-17); Calcium 7.3 mg/dL (8.4-10.2); Carbon Dioxide 21 mmol/L (22-30); Chloride 117 mmol/L (98-107); Estimated CRCL calculation 39 ml/min; Estimated Glomerular Filt Rate > 60; Glucose 82 mg/dL (65-105); Magnesium 1.7 mg/dL (1.6-2.3); Potassium 3.5 mmol/L (3.4-5.0); Sodium 141 mmol/L (137-145)
[2020-05-12] MEDS: MAGNESIUM OXIDE 400 MG TABLET PO ×2 (08:37→17:28)
[2020-05-12] MEDS: FUROSEMIDE 40 MG TABLET PO (08:37)
[2020-05-12] MEDS: POTASSIUM CHLORIDE 20 MEQ PACKET (FOR LIQUID) PO ×2 (08:37→17:28)
[2020-05-12] MEDS: PANTOPRAZOLE SOD SESQUIHYDRATE 20 MG TAB PO (08:38)
[2020-05-12] MEDS: SILVERGEL (ELTA) 45 ML 1 APPLIC TOPICAL (08:38)
--- NOTE | 2020-05-12 08:39 | PM.PNGS ---
Progress Note: A&P Assessment and Plan (1) Stricture of descending colon: Code(s): K56.699 - Other intestinal obstruction unspecified as to partial versus complete obstruction Status: Acute Assessment and Plan: +bowel fxn, exam benign, no acute surgical intervention planned, would recommend outpt f/u c colorectal specialist given complicated med/surg history, radiation (2) Sacral wound: Qualifiers: Encounter type: initial encounter Qualified Code(s): S31.000A - Unspecified open wound of lower back and pelvis without penetration into retroperitoneum, initial encounter Code(s): S31.000A - Unspecified open wound of lower back and pelvis without penetration into retroperitoneum, initial encounter Status: Acute Assessment and Plan: cont current wound care (3) Chronic kidney disease, stage 3: Code(s): N18.3 - Chronic kidney disease, stage 3 (moderate) Status: Chronic Assessment and Plan: mgmt per nephrology (4) DVT (deep venous thrombosis): Code(s): I82.409 - Acute embolism and thrombosis of unspecified deep veins of unspecified lower extremity Status: Acute Assessment and Plan: ok to cont current anticoagulation (5) Malnutrition: Qualifiers: Malnutrition type: unspecified type Qualified Code(s): E46 - Unspecified protein-calorie malnutrition Code(s): E46 - Unspecified protein-calorie malnutrition Status: Chronic Assessment and Plan: encourage po intake Subjective Subjective Date/Time Seen: 05/12/20 08:39 feels better, wendy soft diet, +bowel fxn, no N/V Review of Systems Constitutional: Constitutional: Denies chills, Reports fatigue, Reports lethargy and Reports weakness Cardiovascular: Cardiovascular: Denies chest pain Respiratory: Respiratory: Denies dyspnea and Reports dyspnea on exertion Gastrointestinal: Gastrointestinal: Denies abdominal pain, Denies bloating, Denies constipation, Reports diarrhea, Denies nausea and Denies vomiting Exam Const: General: no acute distress Resp: Auscultation: clear to auscultation bilaterally Cardio: Rate: regular rate Rhythm: regular rhythm GI: Other: SNTND Objective Data Vital Signs Vital Signs: Vital Signs - 24 hr 05/11/20 10:00 05/11/20 12:19 05/11/20 13:02 Temperature 37.2 C Pulse Rate 72 69 75 Respiratory Rate 18 18 Blood Pressure 109/53 L 101/69 Pulse Oximetry 100 98 05/11/20 13:12 05/11/20 13:20 05/11/20 14:00 Temperature Pulse Rate 71 70 63 Respiratory Rate 18 18 Blood Pressure 104/70 114/71 Pulse Oximetry 100 100 05/11/20 16:00 05/11/20 22:55 05/12/20 07:05 Temperature 36.8 C 37.2 C 36.9 C Pulse Rate 74 75 88 Respiratory Rate 18 18 18 Blood Pressure 92/55 L 105/58 L 108/62 Pulse Oximetry 100 100 97 Intake/Output Intake/Output: Intake & Output 05/09/20 05/10/20 05/11/20 05/12/20 23:59 23:59 23:59 23:59 Intake Total 2490 2570 4460 1300 Output Total 450 1390 1225 475 Balance 2040 1180 3235 825 Meds/Results Medications: Active Medications Generic Name Dose Route Start Last Admin Trade Name Freq PRN Reason Stop Dose Admin Albuterol 1 puff 05/09/20 00:04 Proventil Hfa INHALATION Q6H PRN Shortness Of Breath Furosemide 40 mg 05/09/20 09:00 05/12/20 08:37 Lasix Tablet PO 40 mg DAILY NITESH Administration Sodium Chloride 1,000 mls @ 125 mls/hr 05/08/20 18:30 05/12/20 04:54 Normal Saline Iv IV CONT 125 mls/hr .Q8H NITESH Administration Ertapenem 1 gm in 50 mls @ 100 mls/hr 05/08/20 23:35 05/11/20 22:35 Invanz 1 Gm/Ns 50 Ml IVPB Infused DAILY@2200 NITESH Infusion Magnesium Oxide 400 mg 05/09/20 09:00 05/12/20 08:37 Mag-Ox PO 400 mg BID NITESH Administration Melatonin 5 mg 05/09/20 00:04 05/09/20 22:08 Melatonin PO 5 mg HS PRN Administration Sleep Miconazole Nitrate 1 applic 05/09/20 09:00 05/11/20 22:06 Aloe Montgomery TOPICAL
--- NOTE | 2020-05-12 09:21 | WPDGIPROGNO ---
Progress Note: A&P Assessment and Plan (1) Stricture of descending colon: Code(s): K56.699 - Other intestinal obstruction unspecified as to partial versus complete obstruction Status: Acute Assessment and Plan: found during a colonoscopy yesterday, unable to traverse despite balloon dilation however she has a benign exam and still having stools (liquid, probably she has overflow). Biopsies obtained. She eventually will need to see colorectal surgeon at [facility] given complexity of case (previous radiation with sigmoidectomy, ventral hernia repair, nephrostomy, malnutrition, etc). Please note that she does not have Crohn's disease. ok to advance to regular diet. (2) Acute on chronic anemia: Code(s): D64.9 - Anemia, unspecified Status: Acute (3) Hydronephrosis, right: Code(s): N13.30 - Unspecified hydronephrosis Status: Acute (4) Sacral wound: Qualifiers: Encounter type: initial encounter Qualified Code(s): S31.000A - Unspecified open wound of lower back and pelvis without penetration into retroperitoneum, initial encounter Code(s): S31.000A - Unspecified open wound of lower back and pelvis without penetration into retroperitoneum, initial encounter Status: Acute Assessment and Plan: by wound care (5) Chronic kidney disease, stage 3: Code(s): N18.3 - Chronic kidney disease, stage 3 (moderate) Status: Chronic (6) Anticoagulated by anticoagulation treatment: Code(s): Z79.01 - [facility] (current) use of anticoagulants Status: Acute Assessment and Plan: ok to resume eliquis tomorrow (7) Malnutrition: Qualifiers: Malnutrition type: unspecified type Qualified Code(s): E46 - Unspecified protein-calorie malnutrition Code(s): E46 - Unspecified protein-calorie malnutrition Status: Chronic (8) Ventral hernia: Code(s): K43.9 - Ventral hernia without obstruction or gangrene Status: Acute (9) 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 Now complicated with hydronephrosis with nephrostomy tube, sacral wound, stricture colon, diarrhea, etc. Subjective Date/time seen: 05/12/20 09:21 Interval history: no new issues, she is having liquid stool, denies abdominal pain and tolerating diet, in fact would like to eat regular diet. Review of Systems Review of Systems: All systems reviewed & are unremarkable except as noted in HPI and below Exam Narrative: Exam Narrative: thin, chronically ill appearing but comfortable Const: General: comfortable and no acute distress HENMT: General nose exam: Normal nares present Eyes: General: appearance normal, both eyes and all related structures Sclera: sclerae normal Neck: Neck: supple Resp: Effort & Inspection: normal respiratory effort Auscultation: clear to auscultation bilaterally Cardio: Rate: regular rate Rhythm: regular rhythm GI: GI Palp: Yes Soft to palpation and No Tenderness to palpation present (GI) Auscultation: normal bowel sounds Other: ventral hernia, no rebound or pain, benign exam : Other: nephrostomy tube in place Skin: Other: patient with deep sacral wound (unchanged) Neuro: Speech: normal speech Sensory Exam: normal sensation Extrem: General: pedal edema Psych: Affect: Anxious affect present Objective Data Vital Signs Vital Signs: Vital Signs - 24 hr 05/11/20 10:00 05/11/20 12:19 05/11/20 13:02 Temperature 98.9 F Pulse Rate 72 69 75 Respiratory Rate 18 18 Blood Pressure 109/53 L 101/69 Pulse Oximetry 100 98 05/11/20 13:12 05/11/20 13:20 0
--- NOTE | 2020-05-12 13:54 | PM.IMPN ---
Progress Note: A&P Assessment and Plan (1) UTI (urinary tract infection): Code(s): N39.0 - Urinary tract infection, site not specified Status: Acute Assessment and Plan: 05/12/20 13:54 patient had drug resistant UTI just recently she was on ertapenem psych continue with ertapenem. The patient has bilateral nephrostomy tubes. The right tube is not draining but the left 1 is. Blood and urine cultures are pending patient is a 60 female who resides at in patient is a bed-bound with nephrostomy tube presented emergency department with a complaint abdominal pain patient had a CT scan of the abdomen and pelvis which showed: 1. Small amount of bladder gas, gas within the renal collecting system with nephrostomy tubes in position. Gas probably introduced by tubes. 2. Interval development of moderate right hydronephrosis, please check nephrostomy tube for output, closure or malfunction. 3. Large sacral, left buttocks ulceration. patient was seen by urology team recommended Interventional Radiology follow-up to replace nephrostomy tube, and patient was seen the radiologist and following are the findings 1. Patent right nephrostomy tube in expected position. Resolution of right-sided hydronephrosis after exchange of the drainage bag. The nephrostomy tube itself was not changed. 2. Patent left nephrostomy tube in expected position. patient states the abdominal pain is better however the wound on her coccyx is causing pain, patient is seen by wound and will do the follow-up dressing change and further recommendation to follow, patient found to have anemia H&H is 6.9 and history of guaiac-positive stool most likely from her Crohn disease patient will get 1 unit of pack RBC. today patient seen by GI does not suspect Crohn disease and patient is scheduled colonoscopy tomorrow and further recommendation to follow, urine culture is growing Raoultella ornithinolytica resistant several antibiotic sensitive to Ertapenem will continue, patient with hypokalemia and hypomagnesium most likely secondary to diarrhea will monitor and supplement. on 05/11 patient was seen by GI and had colonoscopy which showed colonic stricture and stenosis most likely secondary to previous radiation therapy, GI was not able traverse the scope or dilate stenosis, patient was seen by general surgery patient is a very high risk of surgery patient has had several abdominal surgery in the past and radiation therapy, will continue conservative management with soft diet and monitor. Patient wound is growing Raoultella ornithinolytica as well as E coli ESBL, her urine culture is also growing Raoultella ornithinolytica both organisms are resistant to several antibiotics but sensitive to ertapenem will continue. today again patient was seen by GI and surgery team both are recommending to transfer the patient to [facility] for colorectal surgery, I spoke with the patient, patient does not wish to be transferred does not want to have any surgery and would like to be managed conservatively, currently denies any abdominal pain nausea or vomiting fever, will continue present management and may discharge the patient on Thursday. her UTI most likely secondary to indwelling nephrostomy tubes. (2) Hydronephrosis, right: Code(s): N13.30 - Unspecified hydronephrosis Status: Acute Assessment and Plan: I did put an order in for Interventional Radiology to change out that nephrostomy tube tomorrow. There is no drainage on the right possible hydronephrosis on that side (3) Sacral wound: Qualifiers: Encounter type: initial encounter Qualified Code(s): S31.000A - Unspecified open wound of lower back and pelvis without penetration into retroperitoneum, initial encounter Code(s): S31.000A - Unspecified open wound of lower back and pelvis without penetration into retroperitoneum, initial encounter Status: Acute Assessment and Plan: wound care consult w
[2020-05-12 14:00] VITALS: BP 100/51; PULSE 94; RESP 12; TEMP 36.7; O2SAT 100
--- NOTE | 2020-05-12 15:13 | WPDANESPN ---
Anes - Prog Note Post-Op Date/Time: 05/12/20 15:13 Cardiovascular status: normal Respiratory status: normal Airway patency: baseline Mental status: baseline Post-Op hydration status: normal Vital Signs: Last Vital Signs Temp 36.9 C 05/12/20 07:05 Pulse 88 05/12/20 07:05 Resp 18 05/12/20 07:05 BP 108/62 05/12/20 07:05 Pulse Ox 97 05/12/20 07:05 Pain Score (VAS): 0/10. Patient resting up to bedside at time of assessment, appears comfortable. PT at bedside. I/O: Intake & Output 05/11/20 05/12/20 05/12/20 23:59 07:59 15:59 Intake Total 2910 1300 1240 Output Total 1025 475 Balance 6632 797 5553 Laboratory Tests 05/12/20 06:47 05/12/20 06:47 05/12/20 05/12/20 06:47 06:47 WBC 8.7 RBC 2.95 L Hgb 8.7 L Hct 27.6 L MCV 93.6 MCH 29.5 MCHC 31.5 L RDW 15.7 H Plt Count 167 MPV 9.4 Sodium 141 Potassium 3.5 Chloride 117 H Carbon Dioxide 21 L Anion Gap 6.5 L BUN 8 Creatinine 1.10 H Estim Creat Clear Calc 39 Estimated GFR > 60 Glucose 82 Calcium 7.3 L Magnesium 1.7 Microbiology 05/08/20 17:34 Unspecified Urine Culture - Final Escherichia Coli (ESBL) Raoultella ornithinolytica Post-procedural complaints: none Patient Feedback: Patient satisfied with anesthetic care.
[2020-05-12 15:55] VITALS: BP 103/54
--- NOTE | 2020-05-12 17:13 | PC.NURSE ---
Documentation recorded by Puja Rhodes RN. has been reviewed for completion and accuracy by Eloise Mae RN.
[2020-05-12] MEDS: EUCERIN CREAM 120 GM JAR 1 APPLIC TOPICAL (17:26)
[2020-05-12] MEDS: ZOLPIDEM TARTRATE 5 MG TABLET PO (21:12)
[2020-05-12] MEDS: ERTAPENEM 1 GM/NS 50 ML 1 GM/50 ML BAG IVPB (21:12)
[2020-05-12 22:00] VITALS: BP 110/68; PULSE 75; RESP 16; TEMP 36.9; O2SAT 100
[2020-05-13] MEDS: traMADol HCL 50 MG TABLET PO ×3 (00:28→20:38)
[2020-05-13 06:27] VITALS: BP 105/61; PULSE 65; RESP 16; TEMP 37.1; O2SAT 100
[2020-05-13 06:48] LABS: Hematocrit 27.6 % (37.0-47.0); Hemoglobin 8.5 g/dL (12.0-15.0); Mean Corpuscular HGB Conc 30.8 g/dl (32-36); Mean Corpuscular Hemoglobin 28.9 pg (26-34); Mean Corpuscular Volume 93.9 fl (80-100); Mean Platelet Volume 9.2 fl (7.4-10.4); Platelet Count Result 178 k/mm3 (150-375); Red Blood Count 2.94 M/mm3 (4.2-5.4); Red Cell Distribution Width 15.6 % (11.5-14.5); White Blood Count 8.8 K/mm3 (4.5-10.0)
[2020-05-13 07:05] LABS: Anion Gap 5.3 mmol/L (7-16); Blood Urea Nitrogen 6 mg/dL (7-17); Calcium 7.3 mg/dL (8.4-10.2); Carbon Dioxide 21 mmol/L (22-30); Chloride 116 mmol/L (98-107); Estimated CRCL calculation 46 ml/min; Estimated Glomerular Filt Rate > 60; Glucose 102 mg/dL (65-105); Magnesium 1.4 mg/dL (1.6-2.3); Potassium 3.3 mmol/L (3.4-5.0); Sodium 139 mmol/L (137-145)
--- NOTE | 2020-05-13 09:06 | PM.PNGS ---
Progress Note: A&P Assessment and Plan (1) Stricture of descending colon: Code(s): K56.699 - Other intestinal obstruction unspecified as to partial versus complete obstruction Status: Acute Assessment and Plan: cont to have bowel fxn and wendy diet, plan for discharge once all med issues stable and f/u as outpt to [facility] (2) Ventral hernia: Code(s): K43.9 - Ventral hernia without obstruction or gangrene Status: Acute Assessment and Plan: easily reducible, poor surgical candidate given comorbidities Subjective Subjective Date/Time Seen: 05/13/20 09:06 feels ok, no acute issues, wendy diet, having loose BMs Review of Systems Constitutional: Constitutional: Denies chills, Reports fatigue, Reports lethargy and Reports weakness Cardiovascular: Cardiovascular: Denies chest pain Respiratory: Respiratory: Denies dyspnea Gastrointestinal: Gastrointestinal: Denies abdominal pain, Denies bloating, Denies constipation, Reports diarrhea, Denies nausea and Denies vomiting Exam Const: General: no acute distress Resp: Auscultation: clear to auscultation bilaterally Cardio: Rate: regular rate Rhythm: regular rhythm GI: Other: S, sl dist, NT, +ventral hernia Objective Data Vital Signs Vital Signs: Vital Signs - 24 hr 05/12/20 14:00 05/12/20 15:55 05/12/20 22:00 Temperature 36.7 C 36.9 C Pulse Rate 94 75 Respiratory Rate 12 16 Blood Pressure 100/51 L 103/54 L 110/68 Pulse Oximetry 100 100 05/13/20 06:27 Temperature 37.1 C Pulse Rate 65 Respiratory Rate 16 Blood Pressure 105/61 Pulse Oximetry 100 Intake/Output Intake/Output: Intake & Output 05/10/20 05/11/20 05/12/20 05/13/20 23:59 23:59 23:59 23:59 Intake Total 2570 4460 2830 500 Output Total 1390 1225 475 Balance 1180 3235 2355 500 Meds/Results Medications: Active Medications Generic Name Dose Route Start Last Admin Trade Name Freq PRN Reason Stop Dose Admin Albuterol 1 puff 05/09/20 00:04 Proventil Hfa INHALATION Q6H PRN Shortness Of Breath Furosemide 40 mg 05/09/20 09:00 05/12/20 08:37 Lasix Tablet PO 40 mg DAILY NITESH Administration Sodium Chloride 1,000 mls @ 125 mls/hr 05/08/20 18:30 05/12/20 11:14 Normal Saline Iv IV CONT 125 mls/hr .Q8H NITESH Administration Ertapenem 1 gm in 50 mls @ 100 mls/hr 05/08/20 23:35 05/12/20 21:42 Invanz 1 Gm/Ns 50 Ml IVPB Infused DAILY@2200 NITESH Infusion Loperamide HCl 2 mg 05/12/20 10:18 Loperamide Hcl PO PRN PRN Diarrhea Magnesium Oxide 400 mg 05/13/20 09:00 Mag-Ox PO QAM NITESH Melatonin 5 mg 05/09/20 00:04 05/09/20 22:08 Melatonin PO 5 mg HS PRN Administration Sleep Miconazole Nitrate 1 applic 05/09/20 09:00 05/12/20 21:13 Aloe Weldon TOPICAL 1 applic Q12HR NITESH Administration Multi-Ingred Cream/Lotion/Oil/Oint 1 applic 05/12/20 11:58 05/12/20 17:26 Minerin Creme TOPICAL 1 applic QAM NITESH Administration Pantoprazole Sodium 20 mg 05/09/20 09:00 05/12/20 08:38 Protonix PO 20 mg QAM NITESH Administration Potassium Chloride 20 meq 05/09/20 08:00 05/12/20 17:28 Kcl Powder (For Liquid) PO 20 meq BIDWM NITESH Administration Silver Nitrate 1 applic 05/09/20 09:00 05/12/20 08:38 Silvergel TOPICAL 1 applic DAILY NITESH Administration Tramadol HCl 50 mg 05/09/20 00:04 05/13/20 00:28 Ultram PO 50 mg Q8H PRN Administration Pain (Scale Score 4-6) Zolpidem Tartrate 5 mg 05/09/20 21:00 05/12/20 21:12 Ambien PO 5 mg HS NITESH Administration Radiology Results: ITS Impressions Abdomen/Pelvis CT 05/08/20 16:18 IMPRESSION: 1. Small amount of bladder gas, gas within the renal collecting system with nephrostomy tubes in position. Gas probably introduced by tubes. 2. Interval development of moderate right hydronephrosis, please check nephrostomy tube for output, closure or malfunction. 3. Large sacral, left but
--- NOTE | 2020-05-13 09:49 | WPDGIPROGNO ---
Progress Note: A&P Assessment and Plan (1) Stricture of descending colon: Code(s): K56.699 - Other intestinal obstruction unspecified as to partial versus complete obstruction Status: Acute Assessment and Plan: found during a colonoscopy, stricture about 8 mm in diameter and unable to traverse despite balloon dilation however she has a benign exam and still having stools (liquid, probably she has overflow). Biopsies obtained. She eventually will need to see colorectal surgeon at [facility] given complexity of case (previous radiation with sigmoidectomy, ventral hernia repair, nephrostomy, malnutrition, etc) that can be arrange as outpatient. Ok to discharge home when other medical issues stable. Ok to use imodium prn (she was using at home) (2) Acute on chronic anemia: Code(s): D64.9 - Anemia, unspecified Status: Acute (3) Hydronephrosis, right: Code(s): N13.30 - Unspecified hydronephrosis Status: Acute (4) Sacral wound: Qualifiers: Encounter type: initial encounter Qualified Code(s): S31.000A - Unspecified open wound of lower back and pelvis without penetration into retroperitoneum, initial encounter Code(s): S31.000A - Unspecified open wound of lower back and pelvis without penetration into retroperitoneum, initial encounter Status: Acute Assessment and Plan: by wound care (5) Chronic kidney disease, stage 3: Code(s): N18.3 - Chronic kidney disease, stage 3 (moderate) Status: Chronic (6) Anticoagulated by anticoagulation treatment: Code(s): Z79.01 - MCFP (current) use of anticoagulants Status: Acute Assessment and Plan: ok to resume eliquis today (7) Malnutrition: Qualifiers: Malnutrition type: unspecified type Qualified Code(s): E46 - Unspecified protein-calorie malnutrition Code(s): E46 - Unspecified protein-calorie malnutrition Status: Chronic (8) Ventral hernia: Code(s): K43.9 - Ventral hernia without obstruction or gangrene Status: Acute Assessment and Plan: reducible, no pain, will be poor candidate for surgery (9) 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 Now complicated with hydronephrosis with nephrostomy tube, sacral wound, stricture colon, diarrhea, etc. Subjective Date/time seen: 05/13/20 09:49 Interval history: she is eating regular diet, no abdominal pain and she is feeling like going home Review of Systems Review of Systems: All systems reviewed & are unremarkable except as noted in HPI and below Exam Narrative: Exam Narrative: thin, chronically ill appearing but comfortable Const: General: comfortable and no acute distress HENMT: General nose exam: Normal nares present Eyes: General: appearance normal, both eyes and all related structures Sclera: sclerae normal Neck: Neck: supple Resp: Effort & Inspection: normal respiratory effort Auscultation: clear to auscultation bilaterally Cardio: Rate: regular rate Rhythm: regular rhythm GI: GI Palp: Yes Soft to palpation and No Tenderness to palpation present (GI) Auscultation: normal bowel sounds Other: ventral hernia, no rebound or pain, benign exam : Other: nephrostomy tube in place Skin: Other: patient with deep sacral wound (unchanged) Neuro: Speech: normal speech Sensory Exam: normal sensation Extrem: General: pedal edema Psych: Affect: Anxious affect present Objective Data Vital Signs Vital Signs: Vital Signs - 24 hr 05/12/20 14:00 05/12/20 15:55 05/12/20 22:00 Temperature 98.1 F 98.5 F Pulse Rate 94 75
[2020-05-13] MEDS: POTASSIUM CHLORIDE 20 MEQ PACKET (FOR LIQUID) PO ×2 (10:09→18:45)
[2020-05-13] MEDS: FUROSEMIDE 40 MG TABLET PO (10:09)
[2020-05-13] MEDS: MAGNESIUM SULF 2 GM/WATER 50ML 2 GM/50 ML BAG IVPB (10:09)
[2020-05-13] MEDS: PANTOPRAZOLE SOD SESQUIHYDRATE 20 MG TAB PO (10:13)
[2020-05-13] MEDS: MAGNESIUM OXIDE 400 MG TABLET PO (10:13)
[2020-05-13] MEDS: SILVERGEL (ELTA) 45 ML 1 APPLIC TOPICAL (10:27)
[2020-05-13] MEDS: EUCERIN CREAM 120 GM JAR 1 APPLIC TOPICAL (10:27)
[2020-05-13 14:11] VITALS: BP 98/54; PULSE 69; RESP 20; TEMP 36.6; O2SAT 100
--- NOTE | 2020-05-13 14:14 | PM.IMPN ---
Progress Note: A&P Assessment and Plan (1) UTI (urinary tract infection): Code(s): N39.0 - Urinary tract infection, site not specified Status: Acute Assessment and Plan: 05/13/20 14:14 patient had drug resistant UTI just recently she was on ertapenem psych continue with ertapenem. The patient has bilateral nephrostomy tubes. The right tube is not draining but the left 1 is. Blood and urine cultures are pending patient is a 60 female who resides at in patient is a bed-bound with nephrostomy tube presented emergency department with a complaint abdominal pain patient had a CT scan of the abdomen and pelvis which showed: 1. Small amount of bladder gas, gas within the renal collecting system with nephrostomy tubes in position. Gas probably introduced by tubes. 2. Interval development of moderate right hydronephrosis, please check nephrostomy tube for output, closure or malfunction. 3. Large sacral, left buttocks ulceration. patient was seen by urology team recommended Interventional Radiology follow-up to replace nephrostomy tube, and patient was seen the radiologist and following are the findings 1. Patent right nephrostomy tube in expected position. Resolution of right-sided hydronephrosis after exchange of the drainage bag. The nephrostomy tube itself was not changed. 2. Patent left nephrostomy tube in expected position. patient states the abdominal pain is better however the wound on her coccyx is causing pain, patient is seen by wound and will do the follow-up dressing change and further recommendation to follow, patient found to have anemia H&H is 6.9 and history of guaiac-positive stool most likely from her Crohn disease patient will get 1 unit of pack RBC. today patient seen by GI does not suspect Crohn disease and patient is scheduled colonoscopy tomorrow and further recommendation to follow, urine culture is growing Raoultella ornithinolytica resistant several antibiotic sensitive to Ertapenem will continue, patient with hypokalemia and hypomagnesium most likely secondary to diarrhea will monitor and supplement. on 05/11 patient was seen by GI and had colonoscopy which showed colonic stricture and stenosis most likely secondary to previous radiation therapy, GI was not able traverse the scope or dilate stenosis, patient was seen by general surgery patient is a very high risk of surgery patient has had several abdominal surgery in the past and radiation therapy, will continue conservative management with soft diet and monitor. Patient wound is growing Raoultella ornithinolytica as well as E coli ESBL, her urine culture is also growing Raoultella ornithinolytica both organisms are resistant to several antibiotics but sensitive to ertapenem will continue. will consult Dr. Paul for his opinion for duration of IV abx, on 05/12 again patient was seen by GI and surgery team both are recommended to transfer the patient to [facility] for colorectal surgery, I spoke with the patient, patient does not wish to be transferred does not want to have any surgery and would like to be managed conservatively, currently denies any abdominal pain nausea or vomiting fever, will continue present management and may discharge the patient on Thursday after consulting Dr. Paul . her UTI most likely secondary to indwelling nephrostomy tubes. (2) Hydronephrosis, right: Code(s): N13.30 - Unspecified hydronephrosis Status: Acute Assessment and Plan: I did put an order in for Interventional Radiology to change out that nephrostomy tube tomorrow. There is no drainage on the right possible hydronephrosis on that side (3) Sacral wound: Qualifiers: Encounter type: initial encounter Qualified Code(s): S31.000A - Unspecified open wound of lower back and pelvis without penetration into retroperitoneum, initial encounter Code(s): S31.000A - Unspecified open wound of lower back and pelvis without penetration into retroperit
[2020-05-13] MEDS: SODIUM CHLORIDE 0.9% IV 1,000 ML 125 ML IV CONT (17:28)
[2020-05-13] MEDS: CALCIUM CARBONATE (TUMS) 500 MG (200 MG ELEMENTAL) PO (19:07)
[2020-05-13] MEDS: ERTAPENEM 1 GM/NS 50 ML 1 GM/50 ML BAG IVPB (20:38)
[2020-05-13] MEDS: ZOLPIDEM TARTRATE 5 MG TABLET PO (20:38)
[2020-05-13 22:00] VITALS: BP 106/48; PULSE 80; RESP 21; TEMP 36.7; O2SAT 100
[2020-05-13] MEDS: LOPERAMIDE HCL 2 MG CAPSULE PO (23:25)
[2020-05-14] MEDS: SODIUM CHLORIDE 0.9% IV 1,000 ML 125 ML IV CONT ×4 (02:30→22:18)
[2020-05-14] MEDS: LOPERAMIDE HCL 2 MG CAPSULE PO ×2 (05:59→20:03)
[2020-05-14 06:00] VITALS: BP 110/69; PULSE 74; RESP 21; TEMP 36.5; O2SAT 100
[2020-05-14 06:35] LABS: Hematocrit 25.1 % (37.0-47.0); Hemoglobin 7.6 g/dL (12.0-15.0); Mean Corpuscular HGB Conc 30.3 g/dl (32-36); Mean Corpuscular Hemoglobin 28.5 pg (26-34); Mean Platelet Volume 9.4 fl (7.4-10.4); Platelet Count Result 161 k/mm3 (150-375); Red Blood Count 2.67 M/mm3 (4.2-5.4); Red Cell Distribution Width 15.5 % (11.5-14.5); White Blood Count 8.8 K/mm3 (4.5-10.0)
[2020-05-14 07:11] LABS: Anion Gap 3.9 mmol/L (7-16); Blood Urea Nitrogen 4 mg/dL (7-17); Calcium 6.1 mg/dL (8.4-10.2); Carbon Dioxide 18 mmol/L (22-30); Chloride 120 mmol/L (98-107); Estimated CRCL calculation 57 ml/min; Estimated Glomerular Filt Rate > 60; Glucose 62 mg/dL (65-105); Magnesium 1.3 mg/dL (1.6-2.3); Potassium 2.9 mmol/L (3.4-5.0); Sodium 139 mmol/L (137-145)
--- NOTE | 2020-05-14 07:34 | WPDINFPN2 ---
Progress Note: A&P Assessment and Plan (1) UTI (urinary tract infection): Code(s): N39.0 - Urinary tract infection, site not specified Status: Acute Assessment and Plan: complicated UTI REC Ertapenem through 05/17. PICC in place, ok with me home IV Subjective Date/time seen: 05/14/20 07:34 Objective Data Vital Signs Vital Signs: Vital Signs - 24 hr 05/13/20 14:11 05/13/20 22:00 Temperature 36.6 C 36.7 C Pulse Rate 69 80 Respiratory Rate 20 21 H Blood Pressure 98/54 L 106/48 L Pulse Oximetry 100 100 Intake/Output Intake/Output: Intake & Output 05/11/20 05/12/20 05/13/20 05/14/20 23:59 23:59 23:59 23:59 Intake Total 4460 3830 1390 1000 Output Total 1225 475 875 Balance 3235 3355 515 1000 Meds/Results Medications: Active Medications Generic Name Dose Route Start Last Admin Trade Name Freq PRN Reason Stop Dose Admin Albuterol 1 puff 05/09/20 00:04 Proventil Hfa INHALATION Q6H PRN Shortness Of Breath Calcium Carbonate 200 mg 05/13/20 18:41 05/13/20 19:07 Tums PO 200 mg Q6H PRN Administration Indigestion Furosemide 40 mg 05/09/20 09:00 05/13/20 10:09 Lasix Tablet PO 40 mg DAILY NITESH Administration Sodium Chloride 1,000 mls @ 125 mls/hr 05/08/20 18:30 05/14/20 02:30 Normal Saline Iv IV CONT 125 mls/hr .Q8H NITESH Administration Ertapenem 1 gm in 50 mls @ 100 mls/hr 05/08/20 23:35 05/13/20 21:08 Invanz 1 Gm/Ns 50 Ml IVPB 05/17/20 23:59 Infused DAILY@2200 NITESH Infusion Loperamide HCl 2 mg 05/12/20 10:18 05/14/20 05:59 Loperamide Hcl PO 2 mg PRN PRN Administration Diarrhea Magnesium Oxide 400 mg 05/13/20 09:00 05/13/20 10:13 Mag-Ox PO 400 mg QAM NITESH Administration Melatonin 5 mg 05/09/20 00:04 07/22/20 22:08 Melatonin PO 5 mg HS PRN Administration Sleep Miconazole Nitrate 1 applic 05/09/20 09:00 05/13/20 20:43 Aloe Jessie TOPICAL 1 applic Q12HR NITESH Administration Multi-Ingred Cream/Lotion/Oil/Oint 1 applic 05/12/20 11:58 05/13/20 10:27 Minerin Creme TOPICAL 1 applic QAM NITESH Administration Pantoprazole Sodium 20 mg 05/09/20 09:00 05/13/20 10:13 Protonix PO 20 mg QAM NITESH Administration Potassium Chloride 20 meq 05/09/20 08:00 05/13/20 18:45 Kcl Powder (For Liquid) PO 20 meq BIDWM NITESH Administration Silver Nitrate 1 applic 05/09/20 09:00 05/13/20 10:27 Silvergel TOPICAL 1 applic DAILY NITESH Administration Tramadol HCl 50 mg 05/09/20 00:04 05/13/20 20:38 Ultram PO 50 mg Q8H PRN Administration Pain (Scale Score 4-6) Zolpidem Tartrate 5 mg 05/09/20 21:00 05/13/20 20:38 Ambien PO 5 mg HS NITESH Administration Radiology Results: ITS Impressions Abdomen/Pelvis CT 05/08/20 16:18 IMPRESSION: 1. Small amount of bladder gas, gas within the renal collecting system with nephrostomy tubes in position. Gas probably introduced by tubes. 2. Interval development of moderate right hydronephrosis, please check nephrostomy tube for output, closure or malfunction. 3. Large sacral, left buttocks ulceration. 4. Improvement in anasarca and resolution of pleural effusions, basilar atelectasis. 5. 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 Nephrostogram 05/09/20 11:57 IMPRESSION: 1. Patent right nephrostomy tube in expected position. Resolution of right-sided hydronephrosis after exchange of the drainage bag. The nephrostomy tube itself was not changed. 2. Patent left nephrostomy tube in expected position. Venous Doppler Study 05/12/20 15:23 IMPRESSION: 1. Patent right lower extremity veins. No evidence of deep venous thrombosis. 2. 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 Labs Labs: Laboratory Results - last 24 hr 07/27/20 07/27/20 06:12 06:12 WBC 8.8 RBC 2.67 L Hgb 7.6 L Hct 25.1 L MCV 94.0
[2020-05-14] MEDS: POTASSIUM CHLORIDE 20 MEQ PACKET (FOR LIQUID) PO ×2 (09:22→16:27)
[2020-05-14] MEDS: MAGNESIUM SULF 4 GM/WATER100ML 4 GM/100 ML BAG IVPB (09:22)
[2020-05-14] MEDS: POTASSIUM CHLORIDE 20 MEQ PACKET (FOR LIQUID) 40 MEQ PO (09:22)
[2020-05-14] MEDS: traMADol HCL 50 MG TABLET PO ×2 (09:23→20:04)
[2020-05-14] MEDS: MAGNESIUM OXIDE 400 MG TABLET PO (09:23)
--- NOTE | 2020-05-14 09:33 | CONS_ITS ---
DATE OF CONSULTATION: 05/14/2020 REASON FOR CONSULTATION: UTI. HISTORY OF PRESENT ILLNESS: The patient is a 60-year-old female, who has had bilateral nephrostomy tubes for about the last 2 years. This apparently was needed due to obstruction from her previous radiation therapy in the pelvis for cervical cancer. She has tubes changed about every 4 months. She denies any known problems. Her chart indicates that there was some leakage around the edges of the nephrostomy tubes prior to admission. She has also a known decubitus ulcer and presented to the emergency room on May 08 for the same. She has had local wound care for the decubitus ulcer, has not required any surgery. She has undergone endoscopy while here, but was found to have a colon stricture. She is now on ertapenem day #7 and consultation requested. She also received ceftriaxone and cefepime initially. She had no pre-existing fever, chills, sweats, nephrostomy, hematuria, back pain, nor any recent antibiotics at home. She was here in the hospital in March with suspected urinary tract infection. Urine cultures grew Raoultella. She was given 4 doses of ertapenem followed by 3 days of nitrofurantoin. ALLERGIES: CIPROFLOXACIN. OTHERS NOT PERTINENT. HABITS: Half-pack per day smoker. PRESENT MEDICATIONS: List reviewed. No immunosuppressants. PAST MEDICAL HISTORY: In addition to the above, degenerative arthritis, asthma, COPD, Crohn disease, not on treatment, prior DVT, peptic ulcer disease, rectal polyps, hypertension, IBS, peripheral neuropathy, chronic renal insufficiency, seasonal allergies, umbilical hernia repair, D and C, , and sigmoid colon resection. FAMILY HISTORY: Diabetes, heart failure, hypertension. SOCIAL HISTORY: She lives with her father, 2 daughters, 1 of whom is well-versed in home IV administration apparently. The patient is and disabled. She used to work multiple jobs for [employer]. REVIEW OF SYSTEMS: A 14-point review otherwise negative. PHYSICAL EXAMINATION: GENERAL: This is a cachectic female in no acute distress. VITAL SIGNS: Since arrival, temperature up to 38.0 three days ago and she was hypothermic on admission. Normal temperatures in the last 72 hours, 106/48, 80, 21, 100% saturation. SKIN: No rashes. No suspicious skin lesions. Warm and dry. NODES: She has no cervical adenopathy. EENT: The conjunctivae are normal. Pupils equal, round, and reactive to light. She has very poor dentition. No paranasal sinus erythema, edema, tenderness. NECK: No masses, thyromegaly, meningismus. BACK: Nephrostomy tubes in place, draining clear yellow urine. CARDIAC: Regular rate and rhythm. No murmurs or gallops. Pulses are 1+. LUNGS: Clear. ABDOMEN: Mildly distended. Hypoactive bowel sounds. No tenderness. No organomegaly. EXTREMITIES: She has 2+ edema on the right lower extremity, none on the left. No clubbing. No cyanosis. No venous varicosities. LABORATORY DATA: Current urine culture with Raoultella ornithinolytica, also an ESBL producing E coli. Blood cultures from the , final no growth. I reviewed the susceptibilities of her current and past urine culture. White count 8.8, hemoglobin 7.6, platelets are 161. No differential done, but previously her differential showed a mild left shift. White count on admission was 14.4. She has mild hypokalemia, chloride 120, CO2 at 18, BUN 4, creatinine 0.8 down from 1.4. Calcium is also low. Most recent albumin 1.8. AST 13. Remainder of liver function test normal. Urinalysis yellow, cloudy, 6.0, 1.010, positive blood, leukocyte esterase, 11 to 20 red cells, greater than 35 white cells with bacteria seen. RADIOLOGY DATA: Venous Doppler performed 2 days ago. Left common femoral DVT,
[2020-05-14] MEDS: PANTOPRAZOLE SOD SESQUIHYDRATE 20 MG TAB PO (10:37)
[2020-05-14] MEDS: FUROSEMIDE 40 MG TABLET PO (10:37)
[2020-05-14] MEDS: SILVERGEL (ELTA) 45 ML 1 APPLIC TOPICAL (10:38)
[2020-05-14] MEDS: EUCERIN CREAM 120 GM JAR 1 APPLIC TOPICAL (10:38)
[2020-05-14 14:00] VITALS: BP 103/60; PULSE 67; RESP 18; TEMP 36.8; O2SAT 100
--- NOTE | 2020-05-14 16:44 | PM.IMPN ---
Progress Note: A&P Assessment and Plan (1) UTI (urinary tract infection): Code(s): N39.0 - Urinary tract infection, site not specified Status: Acute Assessment and Plan: 05/14/20 16:44 patient had drug resistant UTI just recently she was on ertapenem psych continue with ertapenem. The patient has bilateral nephrostomy tubes. The right tube is not draining but the left 1 is. Blood and urine cultures are pending patient is a 60 female who resides at in patient is a bed-bound with nephrostomy tube presented emergency department with a complaint abdominal pain patient had a CT scan of the abdomen and pelvis which showed: 1. Small amount of bladder gas, gas within the renal collecting system with nephrostomy tubes in position. Gas probably introduced by tubes. 2. Interval development of moderate right hydronephrosis, please check nephrostomy tube for output, closure or malfunction. 3. Large sacral, left buttocks ulceration. patient was seen by urology team recommended Interventional Radiology follow-up to replace nephrostomy tube, and patient was seen the radiologist and following are the findings 1. Patent right nephrostomy tube in expected position. Resolution of right-sided hydronephrosis after exchange of the drainage bag. The nephrostomy tube itself was not changed. 2. Patent left nephrostomy tube in expected position. patient states the abdominal pain is better however the wound on her coccyx is causing pain, patient is seen by wound and will do the follow-up dressing change and further recommendation to follow, patient found to have anemia H&H is 6.9 and history of guaiac-positive stool most likely from her Crohn disease patient will get 1 unit of pack RBC. today patient seen by GI does not suspect Crohn disease and patient is scheduled colonoscopy tomorrow and further recommendation to follow, urine culture is growing Raoultella ornithinolytica resistant several antibiotic sensitive to Ertapenem will continue, patient with hypokalemia and hypomagnesium most likely secondary to diarrhea will monitor and supplement. on 05/11 patient was seen by GI and had colonoscopy which showed colonic stricture and stenosis most likely secondary to previous radiation therapy, GI was not able traverse the scope or dilate stenosis, patient was seen by general surgery patient is a very high risk of surgery patient has had several abdominal surgery in the past and radiation therapy, will continue conservative management with soft diet and monitor. Patient wound is growing Raoultella ornithinolytica as well as E coli ESBL, her urine culture is also growing Raoultella ornithinolytica both organisms are resistant to several antibiotics but sensitive to ertapenem will continue. will consult Dr. Paul for his opinion for duration of IV abx, on 05/12 again patient was seen by GI and surgery team both are recommended to transfer the patient to [facility] for colorectal surgery, I spoke with the patient, patient does not wish to be transferred does not want to have any surgery and would like to be managed conservatively, currently denies any abdominal pain nausea or vomiting fever, will continue present management, Patient was seen by Dr. paul today recommending to continue antibiotics until May 17, discussed with care rep will continue IV antibiotics in the hospital discharge the patient on . patient is clinically stable and has no complaint her UTI most likely secondary to indwelling nephrostomy tubes. (2) Hydronephrosis, right: Code(s): N13.30 - Unspecified hydronephrosis Status: Acute Assessment and Plan: I did put an order in for Interventional Radiology to change out that nephrostomy tube tomorrow. There is no drainage on the right possible hydronephrosis on that side (3) Sacral wound: Qualifiers: Encounter type: initial encounter Qualified Code(s): S31.000A - Unspecified open wound of lower back a
--- NOTE | 2020-05-14 16:59 | PCDIET ---
Nutrition Follow-Up Complete: Increase protein needs related to healing as evidenced by stage 4 pressure ulcer. Patient to consume 75% or more of meals Goal: Goal met. Continue goal. Pt current nutrition is Regular/Soft and Bite Sized + Ensure Clear TID and Thrive BID. Nutrition recommendation: Agree Last recorded weight is 65.4 kg, up from admit wt of 56.5kg Bowel Motility: Chronic Diarrhea Labs Reviewed:Glucose 62, Mg 1.5, K 2.9 Meds Noted:KCL Additional Notes: Pt eating better with intakes of 75%. C/O of not getting bread on diet. Explained that current diet does not allow breads. Pt getting Ensure clear and Thrive BID to help meet increased needs for wound healing. One serving of Ensure Clear provides 200 kcal, 7 g protein, and is a good source of 19 essential vitamins and minerals. Thrive provides 9 grams of protein, 24 vitamins and minerals, 6grams of fiber, and 270 kcal per serving. Mag oxide noted on meds list. This could contribute to diarrhea. We will continue to follow every five days.
[2020-05-14] MEDS: CALCIUM CARBONATE (TUMS) 500 MG (200 MG ELEMENTAL) PO (19:27)
[2020-05-14] MEDS: ZOLPIDEM TARTRATE 5 MG TABLET PO (20:03)
[2020-05-14] MEDS: ERTAPENEM 1 GM/NS 50 ML 1 GM/50 ML BAG IVPB (20:04)
[2020-05-14 22:00] VITALS: BP 108/46; PULSE 71; RESP 20; TEMP 36.6; O2SAT 99
[2020-05-15] MEDS: SODIUM CHLORIDE 0.9% IV 1,000 ML 125 ML IV CONT ×3 (04:16→19:59)
[2020-05-15 05:53] LABS: Hematocrit 25.3 % (37.0-47.0); Hemoglobin 7.9 g/dL (12.0-15.0); Mean Corpuscular HGB Conc 31.2 g/dl (32-36); Mean Corpuscular Hemoglobin 28.9 pg (26-34); Mean Corpuscular Volume 92.7 fl (80-100); Mean Platelet Volume 9.6 fl (7.4-10.4); Platelet Count Result 149 k/mm3 (150-375); Red Blood Count 2.73 M/mm3 (4.2-5.4); Red Cell Distribution Width 15.6 % (11.5-14.5); White Blood Count 8.5 K/mm3 (4.5-10.0)
[2020-05-15 06:00] VITALS: BP 102/54; PULSE 59; RESP 21; TEMP 36.3; O2SAT 100
[2020-05-15 06:02] LABS: Anion Gap 4.8 mmol/L (7-16); Blood Urea Nitrogen 5 mg/dL (7-17); Calcium 7.2 mg/dL (8.4-10.2); Carbon Dioxide 20 mmol/L (22-30); Chloride 118 mmol/L (98-107); Estimated CRCL calculation 68 ml/min; Estimated Glomerular Filt Rate > 60; Glucose 69 mg/dL (65-105); Magnesium 1.8 mg/dL (1.6-2.3); Potassium 3.8 mmol/L (3.4-5.0); Sodium 139 mmol/L (137-145)
[2020-05-15] MEDS: FUROSEMIDE 40 MG TABLET PO (07:51)
[2020-05-15] MEDS: POTASSIUM CHLORIDE 20 MEQ PACKET (FOR LIQUID) PO ×2 (07:51→16:28)
[2020-05-15] MEDS: MAGNESIUM OXIDE 400 MG TABLET PO (07:52)
[2020-05-15] MEDS: PANTOPRAZOLE SOD SESQUIHYDRATE 20 MG TAB PO (07:52)
[2020-05-15] MEDS: SILVERGEL (ELTA) 45 ML 1 APPLIC TOPICAL (07:53)
[2020-05-15] MEDS: EUCERIN CREAM 120 GM JAR 1 APPLIC TOPICAL (07:53)
[2020-05-15] MEDS: traMADol HCL 50 MG TABLET PO ×2 (08:08→19:55)
--- NOTE | 2020-05-15 08:55 | PCCCNOTE ---
On 05/15/20, the student, [ Francisca Borden], provided care and completed [facility] documentation on this patient. I have reviewed the student's documentation and agree with the findings.
--- NOTE | 2020-05-15 11:28 | PM.IMPN ---
Progress Note: A&P Assessment and Plan (1) UTI (urinary tract infection): Code(s): N39.0 - Urinary tract infection, site not specified Status: Acute Assessment and Plan: 05/15/20 11:28 patient had drug resistant UTI just recently she was on ertapenem psych continue with ertapenem. The patient has bilateral nephrostomy tubes. The right tube is not draining but the left 1 is. Blood and urine cultures are pending patient is a 60 female who resides at in patient is a bed-bound with nephrostomy tube presented emergency department with a complaint abdominal pain patient had a CT scan of the abdomen and pelvis which showed: 1. Small amount of bladder gas, gas within the renal collecting system with nephrostomy tubes in position. Gas probably introduced by tubes. 2. Interval development of moderate right hydronephrosis, please check nephrostomy tube for output, closure or malfunction. 3. Large sacral, left buttocks ulceration. patient was seen by urology team recommended Interventional Radiology follow-up to replace nephrostomy tube, and patient was seen the radiologist and following are the findings 1. Patent right nephrostomy tube in expected position. Resolution of right-sided hydronephrosis after exchange of the drainage bag. The nephrostomy tube itself was not changed. 2. Patent left nephrostomy tube in expected position. patient states the abdominal pain is better however the wound on her coccyx is causing pain, patient is seen by wound and will do the follow-up dressing change and further recommendation to follow, patient found to have anemia H&H is 6.9 and history of guaiac-positive stool most likely from her Crohn disease patient will get 1 unit of pack RBC. today patient seen by GI does not suspect Crohn disease and patient is scheduled colonoscopy tomorrow and further recommendation to follow, urine culture is growing Raoultella ornithinolytica resistant several antibiotic sensitive to Ertapenem will continue, patient with hypokalemia and hypomagnesium most likely secondary to diarrhea will monitor and supplement. on 05/11 patient was seen by GI and had colonoscopy which showed colonic stricture and stenosis most likely secondary to previous radiation therapy, GI was not able traverse the scope or dilate stenosis, patient was seen by general surgery patient is a very high risk of surgery patient has had several abdominal surgery in the past and radiation therapy, will continue conservative management with soft diet and monitor. Patient wound is growing Raoultella ornithinolytica as well as E coli ESBL, her urine culture is also growing Raoultella ornithinolytica both organisms are resistant to several antibiotics but sensitive to ertapenem will continue. will consult Dr. Paul for his opinion for duration of IV abx, on 05/12 again patient was seen by GI and surgery team both are recommended to transfer the patient to [facility] for colorectal surgery, I spoke with the patient, patient does not wish to be transferred does not want to have any surgery and would like to be managed conservatively, currently denies any abdominal pain nausea or vomiting fever, will continue present management, Patient was seen by Dr. paul today recommending to continue antibiotics until May 17, discussed with health care marketing manager will continue IV antibiotics in the hospital discharge the patient on . patient is clinically stable and has no complaints. her UTI most likely secondary to indwelling nephrostomy tubes. (2) Hydronephrosis, right: Code(s): N13.30 - Unspecified hydronephrosis Status: Acute Assessment and Plan: I did put an order in for Interventional Radiology to change out that nephrostomy tube tomorrow. There is no drainage on the right possible hydronephrosis on that side (3) Sacral wound: Qualifiers: Encounter type: initial encounter Qualified Code(s): S31.000A - Unspecified open wound of lower back
--- NOTE | 2020-05-15 13:14 | WPDINFPN2 ---
Progress Note: A&P Assessment and Plan (1) UTI (urinary tract infection): Code(s): N39.0 - Urinary tract infection, site not specified Status: Acute Assessment and Plan: 1. complicated UTI 2. Sigmoid stricture REC Ertapenem through 05/17. PICC in place, ok with me home IV. She asks for renewal of her SL B12 supplement, I told her I would pass on to her primary team to decide. Subjective Date/time seen: 05/15/20 13:14 Interval history: No new complaints Exam Narrative: Exam Narrative: afebrile Const: General: no acute distress Resp: Effort & Inspection: normal respiratory effort Auscultation: clear to auscultation bilaterally Cardio: Rate: regular rate Rhythm: regular rhythm Heart sounds: no gallops GI: Inspection: non-distended GI Palp: Yes Soft to palpation and No Tenderness to palpation present (GI) Objective Data Vital Signs Vital Signs: Vital Signs - 24 hr 05/14/20 14:00 05/14/20 22:00 05/15/20 06:00 Temperature 36.8 C 36.6 C 36.3 C L Pulse Rate 67 71 59 L Respiratory Rate 18 20 21 H Blood Pressure 103/60 108/46 L 102/54 L Pulse Oximetry 100 99 100 Intake/Output Intake/Output: Intake & Output 05/12/20 05/13/20 05/14/20 05/15/20 23:59 23:59 23:59 23:59 Intake Total 3830 1390 5300 2640 Output Total 610 036 6647 Balance 3355 515 4050 2640 Meds/Results Medications: Active Medications Generic Name Dose Route Start Last Admin Trade Name Freq PRN Reason Stop Dose Admin Albuterol 1 puff 05/09/20 00:04 Proventil Hfa INHALATION Q6H PRN Shortness Of Breath Calcium Carbonate 200 mg 05/13/20 18:41 05/14/20 19:27 Tums PO 200 mg Q6H PRN Administration Indigestion Furosemide 40 mg 05/09/20 09:00 05/15/20 07:51 Lasix Tablet PO 40 mg DAILY NITESH Administration Sodium Chloride 1,000 mls @ 125 mls/hr 05/08/20 18:30 05/15/20 12:45 Normal Saline Iv IV CONT 125 mls/hr .Q8H NITESH Administration Ertapenem 1 gm in 50 mls @ 100 mls/hr 05/08/20 23:35 05/14/20 20:35 Invanz 1 Gm/Ns 50 Ml IVPB 05/17/20 23:59 Infused DAILY@2200 NITESH Infusion Loperamide HCl 2 mg 05/12/20 10:18 05/14/20 20:03 Loperamide Hcl PO 2 mg PRN PRN Administration Diarrhea Magnesium Oxide 400 mg 05/13/20 09:00 05/15/20 07:52 Mag-Ox PO 400 mg QAM NITESH Administration Melatonin 5 mg 05/09/20 00:04 05/09/20 22:08 Melatonin PO 5 mg HS PRN Administration Sleep Miconazole Nitrate 1 applic 05/09/20 09:00 05/15/20 07:54 Aloe [place] TOPICAL 1 applic Q12HR NITESH Administration Multi-Ingred Cream/Lotion/Oil/Oint 1 applic 05/12/20 11:58 05/15/20 07:53 Minerin Creme TOPICAL 1 applic QAM NITESH Administration Pantoprazole Sodium 20 mg 05/09/20 09:00 05/15/20 07:52 Protonix PO 20 mg QAM NITESH Administration Potassium Chloride 20 meq 05/09/20 08:00 05/15/20 07:51 Kcl Powder (For Liquid) PO 20 meq BIDWM NITESH Administration Silver Nitrate 1 applic 05/09/20 09:00 05/15/20 07:53 Silvergel TOPICAL 1 applic DAILY NITESH Administration Tramadol HCl 50 mg 05/09/20 00:04 05/15/20 08:08 Ultram PO 50 mg Q8H PRN Administration Pain (Scale Score 4-6) Zolpidem Tartrate 5 mg 05/09/20 21:00 05/14/20 20:03 Ambien PO 5 mg HS NITESH Administration Radiology Results: ITS Impressions Abdomen/Pelvis CT 05/08/20 16:18 IMPRESSION: 1. Small amount of bladder gas, gas within the renal collecting system with nephrostomy tubes in position. Gas probably introduced by tubes. 2. Interval development of moderate right hydronephrosis, please check nephrostomy tube for output, closure or malfunction. 3. Large sacral, left buttocks ulceration. 4. Improvement in anasarca and resolution of pleural effusions, basilar atelectasis. 5. 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 Nephrostogram 05/09/20 11:57 IMPRESSION: 1. Patent right nephrostomy tube in expected position. Resolution of rig
--- NOTE | 2020-05-15 13:43 | PCCCNOTE ---
On 05/15/20, the student, [Francisca Borden ], provided care and completed [facility] documentation on this patient. I have reviewed the student's documentation and agree with the findings.
[2020-05-15 14:00] VITALS: BP 96/52; PULSE 70; RESP 16; TEMP 36.7; O2SAT 100
[2020-05-15] MEDS: LOPERAMIDE HCL 2 MG CAPSULE PO ×3 (14:36→21:55)
[2020-05-15] MEDS: CALCIUM CARBONATE (TUMS) 500 MG (200 MG ELEMENTAL) PO (19:55)
[2020-05-15] MEDS: ZOLPIDEM TARTRATE 5 MG TABLET PO (19:55)
[2020-05-15 20:00] VITALS: PULSE 70; RESP 16; O2SAT 100
[2020-05-15 22:00] VITALS: BP 111/57; PULSE 71; RESP 18; TEMP 36.5; O2SAT 100
[2020-05-16] MEDS: MELATONIN 5 MG TABLET PO (00:24)
[2020-05-16] MEDS: ERTAPENEM 1 GM/NS 50 ML 1 GM/50 ML BAG IVPB ×2 (00:24→22:02)
[2020-05-16] MEDS: SODIUM CHLORIDE 0.9% IV 1,000 ML 125 ML IV CONT ×3 (04:44→21:01)
[2020-05-16 06:00] VITALS: BP 116/62; PULSE 69; RESP 16; TEMP 36.6; O2SAT 100
[2020-05-16 06:29] LABS: Hematocrit 25.7 % (37.0-47.0); Hemoglobin 8.1 g/dL (12.0-15.0); Mean Corpuscular HGB Conc 31.5 g/dl (32-36); Mean Corpuscular Hemoglobin 29.6 pg (26-34); Mean Corpuscular Volume 93.8 fl (80-100); Mean Platelet Volume 8.9 fl (7.4-10.4); Platelet Count Result 155 k/mm3 (150-375); Red Blood Count 2.74 M/mm3 (4.2-5.4); Red Cell Distribution Width 15.6 % (11.5-14.5); White Blood Count 8.8 K/mm3 (4.5-10.0)
[2020-05-16 06:53] LABS: Anion Gap 4.7 mmol/L (7-16); Blood Urea Nitrogen 5 mg/dL (7-17); Calcium 7.2 mg/dL (8.4-10.2); Carbon Dioxide 19 mmol/L (22-30); Chloride 121 mmol/L (98-107); Estimated CRCL calculation 53 ml/min; Estimated Glomerular Filt Rate > 60; Glucose 73 mg/dL (65-105); Magnesium 1.4 mg/dL (1.6-2.3); Potassium 3.7 mmol/L (3.4-5.0); Sodium 141 mmol/L (137-145)
[2020-05-16] MEDS: traMADol HCL 50 MG TABLET PO ×2 (08:26→19:18)
[2020-05-16] MEDS: MAGNESIUM OXIDE 400 MG TABLET PO ×2 (08:27→16:28)
[2020-05-16] MEDS: LOPERAMIDE HCL 2 MG CAPSULE PO (08:27)
[2020-05-16] MEDS: POTASSIUM CHLORIDE 20 MEQ PACKET (FOR LIQUID) PO ×2 (08:28→16:28)
[2020-05-16] MEDS: MAGNESIUM SULF 4 GM/WATER100ML 4 GM/100 ML BAG IVPB (08:28)
[2020-05-16] MEDS: FUROSEMIDE 40 MG TABLET PO (08:28)
[2020-05-16] MEDS: SILVERGEL (ELTA) 45 ML 1 APPLIC TOPICAL (08:31)
[2020-05-16] MEDS: PANTOPRAZOLE SOD SESQUIHYDRATE 20 MG TAB PO (08:31)
[2020-05-16] MEDS: EUCERIN CREAM 120 GM JAR 1 APPLIC TOPICAL (08:32)
--- NOTE | 2020-05-16 11:55 | PM.IMPN ---
Progress Note: A&P Assessment and Plan (1) UTI (urinary tract infection): Code(s): N39.0 - Urinary tract infection, site not specified Status: Acute Assessment and Plan: 05/16/20 11:55 patient had drug resistant UTI just recently she was on ertapenem psych continue with ertapenem. The patient has bilateral nephrostomy tubes. The right tube is not draining but the left 1 is. Blood and urine cultures are pending patient is a 60 female who resides at in patient is a bed-bound with nephrostomy tube presented emergency department with a complaint abdominal pain patient had a CT scan of the abdomen and pelvis which showed: 1. Small amount of bladder gas, gas within the renal collecting system with nephrostomy tubes in position. Gas probably introduced by tubes. 2. Interval development of moderate right hydronephrosis, please check nephrostomy tube for output, closure or malfunction. 3. Large sacral, left buttocks ulceration. patient was seen by urology team recommended Interventional Radiology follow-up to replace nephrostomy tube, and patient was seen the radiologist and following are the findings 1. Patent right nephrostomy tube in expected position. Resolution of right-sided hydronephrosis after exchange of the drainage bag. The nephrostomy tube itself was not changed. 2. Patent left nephrostomy tube in expected position. patient states the abdominal pain is better however the wound on her coccyx is causing pain, patient is seen by wound and will do the follow-up dressing change and further recommendation to follow, patient found to have anemia H&H is 6.9 and history of guaiac-positive stool most likely from her Crohn disease patient will get 1 unit of pack RBC. today patient seen by GI does not suspect Crohn disease and patient is scheduled colonoscopy tomorrow and further recommendation to follow, urine culture is growing Raoultella ornithinolytica resistant several antibiotic sensitive to Ertapenem will continue, patient with hypokalemia and hypomagnesium most likely secondary to diarrhea will monitor and supplement. on 05/11 patient was seen by GI and had colonoscopy which showed colonic stricture and stenosis most likely secondary to previous radiation therapy, GI was not able traverse the scope or dilate stenosis, patient was seen by general surgery patient is a very high risk of surgery patient has had several abdominal surgery in the past and radiation therapy, will continue conservative management with soft diet and monitor. Patient wound is growing Raoultella ornithinolytica as well as E coli ESBL, her urine culture is also growing Raoultella ornithinolytica both organisms are resistant to several antibiotics but sensitive to ertapenem will continue. will consult Dr. Paul for his opinion for duration of IV abx, on 05/12 again patient was seen by GI and surgery team both are recommended to transfer the patient to [facility] for colorectal surgery, I spoke with the patient, patient does not wish to be transferred does not want to have any surgery and would like to be managed conservatively, currently denies any abdominal pain nausea or vomiting fever, will continue present management, Patient was seen by Dr. paul today recommending to continue antibiotics until May 17, discussed with healthcare administrator will continue IV antibiotics in the hospital discharge the patient on . today patient complains of pain and swelling and her right lower extremity, pain is getting worse, patient has DVT and on Eliquis. patient's right lower extremity is quite will do venous Doppler to further evaluate and further recommendation to follow her UTI most likely secondary to indwelling nephrostomy tubes. (2) Hydronephrosis, right: Code(s): N13.30 - Unspecified hydronephrosis Status: Acute Assessment and Plan: I did put an order in for Interventional Radiology to change out that nephrostomy tube tomorrow. There is no
[2020-05-16 14:00] VITALS: BP 105/58; PULSE 83; RESP 16; TEMP 36.6; O2SAT 100
--- NOTE | 2020-05-16 14:32 | PCPTNOTE ---
Attempted to see pt for PT treatment this date however pt was going to get an X-ray. Will attempt at a later date/time.
[2020-05-16 14:41] LABS: SARS-CoV-2 RNA PCR Negative
--- NOTE | 2020-05-16 15:29 | WPDINFPN2 ---
Progress Note: A&P Assessment and Plan (1) UTI (urinary tract infection): Code(s): N39.0 - Urinary tract infection, site not specified Status: Acute Assessment and Plan: 1. complicated UTI 2. Sigmoid stricture REC Ertapenem through 05/17. PICC in place. Ok with me discharge after final dose tomorrow. Ok to move up dose from 2200, to facilitate discharge later afternoon. Remove PICC prior to departure. F/U Urology. No oral therapy for her acute UTI, and no antibiotic suppression. Will sign off Subjective Date/time seen: 05/16/20 15:29 Interval history: some discomfort LE, to have venous doppler. N tubes draining well Exam Narrative: Exam Narrative: afebrile Const: General: no acute distress Resp: Effort & Inspection: normal respiratory effort Auscultation: clear to auscultation bilaterally Cardio: Rate: regular rate Rhythm: regular rhythm Heart sounds: no gallops and no murmurs GI: Inspection: non-distended GI Palp: Yes Soft to palpation and No Tenderness to palpation present (GI) : Other: tubes draining clear yellow Objective Data Vital Signs Vital Signs: Vital Signs - 24 hr 05/15/20 20:00 05/15/20 22:00 05/16/20 06:00 Temperature 36.5 C 36.6 C Pulse Rate 70 71 69 Respiratory Rate 16 18 16 Blood Pressure 111/57 L 116/62 Pulse Oximetry 100 100 100 Intake/Output Intake/Output: Intake & Output 05/13/20 05/14/20 05/15/20 05/16/20 23:59 23:59 23:59 23:59 Intake Total 1390 5300 4420 2330 Output Total 875 1250 1300 400 Balance 515 4050 3120 1930 Meds/Results Medications: Active Medications Generic Name Dose Route Start Last Admin Trade Name Freq PRN Reason Stop Dose Admin Albuterol 1 puff 05/09/20 00:04 Proventil Hfa INHALATION Q6H PRN Shortness Of Breath Apixaban 5 mg 05/16/20 21:00 Eliquis PO Q12HR NITESH Calcium Carbonate 200 mg 05/13/20 18:41 05/15/20 19:55 Tums PO 200 mg Q6H PRN Administration Indigestion Furosemide 40 mg 05/09/20 09:00 05/16/20 08:28 Lasix Tablet PO 40 mg DAILY NITESH Administration Sodium Chloride 1,000 mls @ 125 mls/hr 05/08/20 18:30 05/16/20 08:42 Normal Saline Iv IV CONT 125 mls/hr .Q8H NITESH Infusion Ertapenem 1 gm in 50 mls @ 100 mls/hr 05/08/20 23:35 05/16/20 01:50 Invanz 1 Gm/Ns 50 Ml IVPB 05/17/20 23:59 Infused DAILY@2200 NITESH Infusion Loperamide HCl 2 mg 05/12/20 10:18 05/16/20 08:27 Loperamide Hcl PO 2 mg PRN PRN Administration Diarrhea Magnesium Oxide 400 mg 05/16/20 09:00 05/16/20 08:27 Mag-Ox PO 400 mg BID NITESH Administration Melatonin 5 mg 05/09/20 00:04 05/16/20 00:24 Melatonin PO 5 mg HS PRN Administration Sleep Miconazole Nitrate 1 applic 05/09/20 09:00 05/16/20 08:31 Aloe [place] TOPICAL 1 applic Q12HR NITESH Administration Multi-Ingred Cream/Lotion/Oil/Oint 1 applic 05/12/20 11:58 05/16/20 08:32 Minerin Creme TOPICAL 1 applic QAM NITESH Administration Pantoprazole Sodium 20 mg 05/09/20 09:00 05/16/20 08:31 Protonix PO 20 mg QAM NITESH Administration Potassium Chloride 20 meq 05/09/20 08:00 05/16/20 08:28 Kcl Powder (For Liquid) PO 20 meq BIDWM NITESH Administration Silver Nitrate 1 applic 05/09/20 09:00 05/16/20 08:31 Silvergel TOPICAL 1 applic DAILY NITESH Administration Tramadol HCl 50 mg 05/09/20 00:04 05/16/20 08:26 Ultram PO 50 mg Q8H PRN Administration Pain (Scale Score 4-6) Zolpidem Tartrate 5 mg 05/09/20 21:00 05/15/20 19:55 Ambien PO 5 mg HS NITESH Administration Radiology Results: ITS Impressions Abdomen/Pelvis CT 05/08/20 16:18 IMPRESSION: 1. Small amount of bladder gas, gas within the renal collecting system with nephrostomy tubes in position. Gas probably introduced by tubes. 2. Interval development of moderate right hydronephrosis, please check nephrostomy tube for output, closure or malfunction. 3. Large sacral
--- NOTE | 2020-05-16 16:30 | PC.NURSE ---
patient returned from lower extremity US with right leg bleeding continuously from pinpoint opening in medial calf. applied gauze dressing and notified Dr. Mcnally. orders to wrap leg with gauze and coban and put eliquis on hold. Dr. Jaramillo at bedside with patient, requesting H&H. will apply dressing and monitor.
[2020-05-16 16:35] LABS: Hematocrit 28.9 % (37.0-47.0); Hemoglobin 9.1 g/dL (12.0-15.0)
[2020-05-16 16:46] LABS: Anion Gap 6.6 mmol/L (7-16); Blood Urea Nitrogen 5 mg/dL (7-17); Calcium 7.3 mg/dL (8.4-10.2); Carbon Dioxide 21 mmol/L (22-30); Chloride 117 mmol/L (98-107); Estimated CRCL calculation 46 ml/min; Estimated Glomerular Filt Rate > 60; Glucose 103 mg/dL (65-105); Magnesium 2.1 mg/dL (1.6-2.3); Potassium 3.6 mmol/L (3.4-5.0); Sodium 141 mmol/L (137-145)
[2020-05-16 18:15] LABS: Folic Acid 8.3 ng/mL (2.76->20)
[2020-05-16] MEDS: ZOLPIDEM TARTRATE 5 MG TABLET PO (21:01)
[2020-05-16 22:00] VITALS: BP 107/70; PULSE 72; RESP 16; TEMP 37.5; O2SAT 100
[2020-05-17 05:52] LABS: Hematocrit 25.8 % (37.0-47.0); Mean Corpuscular Hemoglobin 29.1 pg (26-34); Mean Corpuscular Volume 93.8 fl (80-100); Mean Platelet Volume 9.9 fl (7.4-10.4); Platelet Count Result 173 k/mm3 (150-375); Red Blood Count 2.75 M/mm3 (4.2-5.4); Red Cell Distribution Width 15.7 % (11.5-14.5); White Blood Count 8.2 K/mm3 (4.5-10.0)
[2020-05-17 06:00] VITALS: BP 111/65; PULSE 88; RESP 12; TEMP 37.2; O2SAT 100
[2020-05-17 06:22] LABS: Alanine Aminotransferase 6 U/L (4-35); Albumin Level 1.7 g/dL (3.5-5.1); Alkaline Phosphatase 74 U/L (38-126); Anion Gap 5.1 mmol/L (7-16); Aspartate Amino Transferase 17 U/L (14-36); Bilirubin,Total 0.2 mg/dL (0.2-1.3); Blood Urea Nitrogen 6 mg/dL (7-17); Calcium 7.3 mg/dL (8.4-10.2); Carbon Dioxide 20 mmol/L (22-30); Chloride 117 mmol/L (98-107); Estimated CRCL calculation 51 ml/min; Estimated Glomerular Filt Rate > 60; Glucose 63 mg/dL (65-105); Magnesium 1.8 mg/dL (1.6-2.3); Potassium 4.1 mmol/L (3.4-5.0); Sodium 138 mmol/L (137-145)
[2020-05-17] MEDS: SODIUM CHLORIDE 0.9% IV 1,000 ML 125 ML IV CONT (07:01)
[2020-05-17] MEDS: traMADol HCL 50 MG TABLET PO (08:03)
[2020-05-17] MEDS: PANTOPRAZOLE SOD SESQUIHYDRATE 20 MG TAB PO (08:03)
[2020-05-17] MEDS: FUROSEMIDE 40 MG TABLET PO (08:03)
[2020-05-17] MEDS: MAGNESIUM OXIDE 400 MG TABLET PO (08:03)
[2020-05-17] MEDS: ERTAPENEM 1 GM/NS 50 ML 1 GM/50 ML BAG IVPB (08:03)
[2020-05-17] MEDS: POTASSIUM CHLORIDE 20 MEQ PACKET (FOR LIQUID) PO (08:03)
[2020-05-17] MEDS: SILVERGEL (ELTA) 45 ML 1 APPLIC TOPICAL (08:05)
[2020-05-17] MEDS: EUCERIN CREAM 120 GM JAR 1 APPLIC TOPICAL (08:06)
--- NOTE | 2020-05-17 11:22 | PM.DS ---
DS: Admitting Diagnosis Admitting Diagnosis Admitting Diagnosis: Urinary tract infection, site not specified DS: Discharge Diagnosis Discharge Diagnosis (1) UTI (urinary tract infection): Code(s): N39.0 - Urinary tract infection, site not specified Status: Acute Assessment and Plan: 05/16/20 11:55 patient had drug resistant UTI just recently she was on ertapenem psych continue with ertapenem. The patient has bilateral nephrostomy tubes. The right tube is not draining but the left 1 is. Blood and urine cultures are pending patient is a 60 female who resides at in patient is a bed-bound with nephrostomy tube presented emergency department with a complaint abdominal pain patient had a CT scan of the abdomen and pelvis which showed: 1. Small amount of bladder gas, gas within the renal collecting system with nephrostomy tubes in position. Gas probably introduced by tubes. 2. Interval development of moderate right hydronephrosis, please check nephrostomy tube for output, closure or malfunction. 3. Large sacral, left buttocks ulceration. patient was seen by urology team recommended Interventional Radiology follow-up to replace nephrostomy tube, and patient was seen the radiologist and following are the findings 1. Patent right nephrostomy tube in expected position. Resolution of right-sided hydronephrosis after exchange of the drainage bag. The nephrostomy tube itself was not changed. 2. Patent left nephrostomy tube in expected position. patient states the abdominal pain is better however the wound on her coccyx is causing pain, patient is seen by wound and will do the follow-up dressing change and further recommendation to follow, patient found to have anemia H&H is 6.9 and history of guaiac-positive stool most likely from her Crohn disease patient will get 1 unit of pack RBC. today patient seen by GI does not suspect Crohn disease and patient is scheduled colonoscopy tomorrow and further recommendation to follow, urine culture is growing Raoultella ornithinolytica resistant several antibiotic sensitive to Ertapenem will continue, patient with hypokalemia and hypomagnesium most likely secondary to diarrhea will monitor and supplement. on 05/11 patient was seen by GI and had colonoscopy which showed colonic stricture and stenosis most likely secondary to previous radiation therapy, GI was not able traverse the scope or dilate stenosis, patient was seen by general surgery patient is a very high risk of surgery patient has had several abdominal surgery in the past and radiation therapy, will continue conservative management with soft diet and monitor. Patient wound is growing Raoultella ornithinolytica as well as E coli ESBL, her urine culture is also growing Raoultella ornithinolytica both organisms are resistant to several antibiotics but sensitive to ertapenem will continue. will consult Dr. Paul for his opinion for duration of IV abx, on 05/12 again patient was seen by GI and surgery team both are recommended to transfer the patient to [facility] for colorectal surgery, I spoke with the patient, patient does not wish to be transferred does not want to have any surgery and would like to be managed conservatively, currently denies any abdominal pain nausea or vomiting fever, will continue present management, Patient was seen by Dr. paul today recommending to continue antibiotics until May 17, discussed with medicare coordinator will continue IV antibiotics in the hospital discharge the patient on . today patient complains of pain and swelling and her right lower extremity, pain is getting worse, patient has DVT and on Eliquis. patient's right lower extremity is quite will do venous Doppler to further evaluate and further recommendation to follow her UTI most likely secondary to indwelling nephrostomy tubes. (2) Hydronephrosis, right: Code(s): N13.30 - Unspecified hydronephrosis Status: Acute Assessment and P
[2020-05-17] MEDS: CYANOCOBALAMIN INJ 1,000 MCG/ML VIAL 1000 MCG IM (12:55)
[2020-05-17] MEDS: NEOMYCIN/POLYMYXIN/BACITRACIN OINTMENT PACKET 1 PACKET (12:58)
== END 2020-05-17 14:35 | DRG 698 ==
LOC: ANHED 18:41 → ANHIMU 20:22 → ANH2MED 05-13 12:26 → ANHIMU 05-18 13:41
PROVIDERS: Family Medicine; Internal Medicine; Internal Medicine Gastroenterology; Nurse Practitioner; Admitting Provider Internal Medicine; Emergency Provider Emergency Medicine; PCP Physician Assistant; Visit Provider Family Medicine
PROC: 0DJD8ZZ Inspection of Lower Intestinal Tract, Via Natural or Artificial Opening Endoscopic (ICD-10-PCS; CPT 45378; principal; 2020-05-11 12:30)
DX: T83.512A Infection and inflammatory reaction due to nephrostomy catheter, initial encounter (principal); L89.154 Pressure ulcer of sacral region, stage 4; N39.0 Urinary tract infection, site not specified; R64 Cachexia; E46 Unspecified protein-calorie malnutrition; Z68.1 Body mass index [BMI] 19.9 or less, adult; N13.30 Unspecified hydronephrosis; N13.39 Other hydronephrosis; K56.699 Other intestinal obstruction unspecified as to partial versus complete obstruction; I82.512 Chronic embolism and thrombosis of left femoral vein; I82.532 Chronic embolism and thrombosis of left popliteal vein; Z16.24 Resistance to multiple antibiotics; Z11.59 Encounter for screening for other viral diseases; K92.9 Disease of digestive system, unspecified; Y84.2 Radiological procedure and radiotherapy as the cause of abnormal reaction of the patient, or of later complication, without mention of misadventure at the time of the procedure; D64.9 Anemia, unspecified; N99.522 Malfunction of incontinent external stoma of urinary tract; L89.222 Pressure ulcer of left hip, stage 2; B96.20 Unspecified Escherichia coli [E. coli] as the cause of diseases classified elsewhere; B96.89 Other specified bacterial agents as the cause of diseases classified elsewhere; M19.90 Unspecified osteoarthritis, unspecified site; J44.9 Chronic obstructive pulmonary disease, unspecified; N18.3 Chronic kidney disease, stage 3 (moderate); L98.419 Non-pressure chronic ulcer of buttock with unspecified severity; K43.9 Ventral hernia without obstruction or gangrene; G62.9 Polyneuropathy, unspecified; K21.9 Gastro-esophageal reflux disease without esophagitis; K58.9 Irritable bowel syndrome, unspecified; I12.9 Hypertensive chronic kidney disease with stage 1 through stage 4 chronic kidney disease, or unspecified chronic kidney disease; F32.9 Major depressive disorder, single episode, unspecified; F17.210 Nicotine dependence, cigarettes, uncomplicated; Z85.41 Personal history of malignant neoplasm of cervix uteri; Z79.01 Long term (current) use of anticoagulants
CPT/HCPCS: 36415; 36430; 36569; 50431; 74176; 80048; 80053; 81001; 82607; 82746; 83605; 83735; 85014; 85018; 85025; 85027; 85652; 86140; 86850; 86900; 86901; 86923; 87040; 87077; 87086; 87088; 87186; 87635; 88305; 93970; 96361; 96365; 96367; 97110; 97161; 97165; 97530; 97535; 99285; A9270; C1751; C9803; J0131; J0696; J1335; J2001; J2060; J2704; J3370; J3420; J3475; J3480; J7030; J7050; J7120; P9016; U0003

== ENCOUNTER 2020-05-18 00:30 | Emergency (ER) | payer MEDICARE, MEDICAID, SELFPAY ==
[2020-05-18 00:30] VITALS: BP 93/52; PULSE 77; RESP 18; TEMP 36.8; O2SAT 100
--- NOTE | 2020-05-18 01:35 | ED.EXTPRO ---
HPI - Extremity Problem General Chief complaint: Extremity Problem,Nontraumatic Stated complaint: bleeding from leg Time Seen by Provider: 05/18/20 00:41 Source: patient and family Mode of arrival: EMS Limitations: no limitations History of Present Illness HPI Narrative: This patient is a 60 year old Female who presents for evaluation of a bleeding wound. PAtient reports she has had a wound on her right lower leg that was covered with gauze. She reports it was oozing blood through the gauze so they came to ER. She reports her blood thinner was discontinued. She had a venous doppler to the right leg that was negative for DVt. Related Data Home Medications Medication Instructions Recorded Confirmed melatonin 5 mg PO HS PRN 04/07/20 05/08/20 omeprazole 20 mg PO DAILY 04/07/20 05/08/20 albuterol sulfate 1 puff INHALATION Q6H PRN 05/08/20 05/08/20 hydrocodone-acetaminophen 1 tablet PO Q6H PRN 05/08/20 05/08/20 potassium chloride 20 meq PO BID 05/08/20 05/08/20 tramadol 50 mg PO Q8H PRN 05/08/20 05/08/20 zolpidem [Ambien] 5 mg PO HS 05/08/20 05/08/20 Allergies Allergy/AdvReac Type Severity Reaction Status Date / Time butorphanol Allergy Mild drove Verified 05/11/20 12:18 crazy ciprofloxacin Allergy Mild Nausea and Verified 05/11/20 12:18 Vomiting iohexol Allergy Mild Itching Verified 05/11/20 12:18 [From contrast - CT, X-RAY] metrizamide Allergy Unknown Unknown Verified 05/11/20 12:18 Contrast Media Allergy Mild Itching Uncoded 05/11/20 12:18 Review of Systems Review of Systems: All systems reviewed & are unremarkable except as noted in HPI and below PMFSH Past Medical History Medical History (Updated 05/18/20 @ 01:46 by Veronika Johnston MD) Anemia Arthritis Asthma Cervical cancer radiation COPD (chronic obstructive pulmonary disease) Depression Diarrhea DVT (deep venous thrombosis) Gastrointestinal ulcer GERD (gastroesophageal reflux disease) History of rectal polyps HTN (hypertension) IBS (irritable bowel syndrome) Peripheral neuropathy 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 History of colonoscopy Hx of section X1 Hx of dilation and curettage Hx of nephrostomy Bilateral. Placed at [place] in approximately 2018. Hx of umbilical hernia repair History of umbilical hernia repair with mesh. Social History Social History Social History: the patient stated that she lives with her father. She has 2 daughters. She does not have a durable power contract attorney. She is a full code. She does have home health that comes to take care for and her father does not. She does occasionally get up and walk. She is and disabled. Patient occasionally drinks she may have a wine every once in a while. She may have 2-3 cigarettes a day. Smoking packs per day: 0.2 Smoking cigarettes per day: 4.0 Years smoked: 25 Smoking pack-years: 5.00 Smoking status: Current every day smoker Tobacco type: cigarettes Second hand tobacco smoke exposure: No Alcohol intake: unknown Drinks per week: 1 Substance use: never Gender identity (if verbalized by the patient): Female Spiritual care concerns: No Agree to blood products: Yes Exam Const: General: no acute distress and alert Orientation/consciousness: patient oriented x3 HENMT: Head: normocephalic and atraumatic Face and sinus: face symmetric Eyes: EOM: EOMs intact bilaterally Resp: Effort & Inspection: normal respiratory effort Neuro: Other: right lower leg medially with small wound opening about 3 mm that is oozing dark blood . when pushed
[2020-05-18] MEDS: traMADol HCL 50 MG TABLET PO (01:54)
[2020-05-18 02:16] VITALS: BP 98/71; PULSE 74; RESP 18; O2SAT 97
== END 2020-05-18 02:23 | disposition home or self-care (01) ==
PROVIDERS: Emergency Provider General Practice; PCP Physician Assistant
DX: L98.9 Disorder of the skin and subcutaneous tissue, unspecified (principal); J45.909 Unspecified asthma, uncomplicated; M19.90 Unspecified osteoarthritis, unspecified site; Z85.41 Personal history of malignant neoplasm of cervix uteri; Z86.718 Personal history of other venous thrombosis and embolism; K21.9 Gastro-esophageal reflux disease without esophagitis; Z87.19 Personal history of other diseases of the digestive system; I10 Essential (primary) hypertension; K58.9 Irritable bowel syndrome, unspecified; G62.9 Polyneuropathy, unspecified; N28.9 Disorder of kidney and ureter, unspecified; Z87.440 Personal history of urinary (tract) infections; Z90.49 Acquired absence of other specified parts of digestive tract; F17.210 Nicotine dependence, cigarettes, uncomplicated; F32.9 Major depressive disorder, single episode, unspecified
CPT/HCPCS: 99283; A9270

== ENCOUNTER 2020-11-16 14:00 | Outpatient (RCR) | payer MEDICARE, MEDICAID, SELFPAY ==
--- NOTE | 2020-09-04 15:06 | PTOPEVAL ---
PHYSICAL THERAPY EVALUATION AND PLAN OF CARE 09-04-2020 Thank you for referring Ingrid Garcia to [facility], for treatment of the diagnosis of B LE lymphedema. Mrs. Garcia is scheduled to be seen for therapy? 3 x/week for 6 weeks. Please review, sign, date and return this plan of care REY. I agree with and certify that the following plan of care is medically necessary. Referring Physician Date Attending Provider: Dr. Cedric Wray *PT Outpatient Evaluation Start: 09/04/20 13:59 Freq: Status: Active Protocol: Document 09/04/20 13:50 LATRICE (Rec: 09/04/20 15:06 LATRICE [id number]) Therapy Assessment Status Assessment Status Assessment Status Evaluation Outpatient Past Medical History Past Medical History Source of Past Medical History Patient,Family/Significant Other Neurological History Hx Neurological Disorders No Significant History Cardiovascular History Hx Deep Vein Thrombosis Yes: R and L LE's ~ 3 months ago- on blood thinner Respiratory History Hx Bronchitis Yes Hx Chronic Obstructive Pulmonary Disease Yes (COPD) Gastrointestinal History Hx Bowel Surgery Yes: section of colon removed, Hx Gastroesophageal Reflux Disease Yes Hx Hemorrhoids Yes Hx Hernia Yes: surgery with mesh Hx Irritable Bowel Yes: incontinent at times- wear depends Hx Polyps Yes Hx Ulcer Yes Genitourinary History Hx Renal Disease Yes Hx Urinary Diversion Yes: nephrostomy tubes Hx Other Genitourinary Disorders Yes: recurrent UTI- on antibiotics now for UTI Musculoskeletal History Hx Arthritis Yes: R shoulder; whole body hurts and weak Hx Back Pain Yes Hx Other Musculoskeletal Disorders Yes: neuropathy of legs and feet Hematological History Hx Anemia Yes Hx Blood Transfusions Yes Endocrine History Hx Endocrine Disorders No Significant History HEENT History Hx Sinus Problems Yes: allergies Integumentary History Hx Cellulitis Yes: feet and legs Hx Other Skin Disorders Yes: lymphedema legs Reproductive History Hx Section Yes Psychosocial History Hx Psychiatric Disorders No Significant History Pain History Has Past Pain Affected Your Daily Life Yes Anesthesia History Hx Anesthesia Reactions No Significant History Other History Hx Cancer Yes: cervical- radiation late Hx Clostridium Difficile Yes Hx MRSA
--- NOTE | 2020-09-11 11:28 | PCPTNOTE ---
Patient no showed for apt. Called patient and it was stated she thought her apt was later in the day. Patient is scheduled for thursdayseptember 14 at 1045 am. Patient is aware.
--- NOTE | 2020-09-19 10:44 | PCPTNOTE ---
Patient called & cancelled scheduled appointment this date due to [ not gong to be able to make it ]
--- NOTE | 2020-10-03 10:53 | PCPTNOTE ---
Patient called & cancelled scheduled appointment this date due to [ ]
--- NOTE | 2020-10-15 09:33 | PCPTNOTE ---
pt called and canceled today's reevaluation due to abdominal issues;
--- NOTE | 2020-10-18 14:55 | PCPTNOTE ---
pt was 10 minutes late to today's reevaluation appointment.
--- NOTE | 2020-10-18 14:55 | PTOPEVAL ---
PHYSICAL THERAPY RE-EVALUATION AND UPDATED PLAN OF CARE 10-18-2020 See the clinical summary below, for the comparison of the reevaluation to her initial evaluation. She has improved, but continues to have fibrotic tissue over the thighs, lower legs and ankles. She also reports new swelling over her R breast. Ashley states she tends to sleep on her R side, but the swelling has recently started in R side. Continue PT 2x/week for 4 weeks. Thank you for referring Ingrid Garcia to [facility].? Please review, sign, date and return this updated plan of care [facility]. I agree with and certify that the following plan of care is medically necessary. Referring Physician Date Attending Provider: Dr. 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 Pain Assessment Timing of Pain Assessment Timing of Pain Assessment Assessment Pain Scale Pain Scale Used Numeric (1 - 10) Self Report Pain Assessment Bilateral Leg(s) Reported Pain Level 8 Pain Description Heavy,Tightness Pain Frequency Chronic Lowest Pain Intensity 7 Greatest Pain Intensity 8 Pain Score Pain Score 8: Self Report Interventions Used Interventions Used By Clinicians Education Lower Extremity Range of Motion General Lower Extremity Range of Motion Gross Lower Extremity Range of Motion R and L knee flexion 110', Comments active- assisted motion; Lower Extremity Muscle Strength Testing General Lower Extremity Strength Gross Lower Extremity Strength requires assist to transfer supine/sit, to assist with legs on/off mat; to dept in wheelchair propeled by randolph
--- NOTE | 2020-11-08 11:32 | PCPTNOTE ---
pt called and rescheduled today's reevaluation due to being ill.
--- NOTE | 2020-11-16 15:09 | PTOPEVAL ---
PHYSICAL THERAPY REEVALUATION AND UPDATED PLAN OF CARE 11-16-2020 Refer to the clinical summary below for her status, compared to the last reevaluation. Ingrid continues to have lymphedema in R LE, with increased firmness of tissue and report swelling in her R breast and trunk. She is to have surgical replacement of her kidney tubes next week. Ashley is to discuss this additional swelling with her kidney and general dr. And if PT is to continue treatment of her R leg, she is to receive an order from them, for clearance to treat her R LE lymphedema. PT will be on hold until she receives the new treatment order. If additional orders are received, she will be scheduled to be seen for therapy?3x/week for 6 weeks. Please review, sign, date and return this plan of care REY. Thank you for referring Ingrid Garcia to [facility].? I agree with and certify that the following plan of care is medically necessary. Referring Physician Date Attending Provider: Dr. Wray PT Outpatient Re-Evaluation Document 11/16/20 14:00 LATRICE (Rec: 11/16/20 15:09 LATRICE [id number]) Subjective Information Ingrid reports: L leg is Query Text:As Reported By Patient/ flabbier at the top of the leg Family , R leg is still firm; used Stacey for 1- 2 hours, they were tight but not uncomfortable; daughter had to help get them on/off; daughter is putting on her compression garments; Pain Assessment Timing of Pain Assessment Timing of Pain Assessment Assessment Pain Scale Pain Scale Used Numeric (1 - 10) Self Report Pain Assessment Bilateral Leg(s) Reported Pain Level 0 Pain Frequency Intermittent Pain Score Pain Score 0: Self Report Additional Pain Score Comments sometimes have sharp pain in R foot- neuropathy pain; compression garments are comfortable and do not give any pain; pain over sacral wound Interventions Used Interventions Used By Clinicians Education Lower Extremity Range of Motion General Lower Extremity Range of Motion Gross Lower Extremity Range of Motion sitting knee flexion R 75' / L Comments 70' Lower Extremity Muscle Strength Testing General Lower Extremity Strength Gross Lower Extremity Strength sitting: hip flexion R x 20 reps- foot just clear floor with posterior lean of trunk/L x 20 reps- foot just clear floor with posterior lean of trunk sitting: knee extension R to ( -10') and L to (-5') x 10 reps each; Transfer Assessment Bed T
--- NOTE | 2020-11-29 11:24 | PCPTNOTE ---
This treatment is being continued on visit number [id number]. Please see documentation on both accounts to view progress. Completed interventions, outcomes, and problems have been marked as Inactive to facilitate the copying of the Care plan routine for recurring accounts.
== END 2020-11-29 10:55 | disposition home or self-care (01) ==
LOC: ANHPT 14:00
PROVIDERS: PCP Physician Assistant
DX: I89.0 Lymphedema, not elsewhere classified (principal)
CPT/HCPCS: 29581; 97016; 97110; 97140; 97161

== ENCOUNTER 2020-12-13 07:34 | Outpatient (RCR) | payer MEDICARE, MEDICAID, SELFPAY ==
--- NOTE | 2020-11-29 11:25 | PCPTNOTE ---
This treatment is being continued from visit number [id number] Please see documentation on both accounts to view progress. Completed interventions, outcomes, and problems have been marked as Inactive to facilitate the copying of the Care plan routine for recurring accounts.
--- NOTE | 2020-11-29 11:37 | PCPTNOTE ---
received a faxed order dated 11-19-[address] David Whitaker, for lymphedema treatment; pt has called and scheduled appt to continue treatment;
--- NOTE | 2020-12-11 10:00 | PCPTNOTE ---
pt called and canceled today's appt due to another appt;
--- NOTE | 2020-12-13 16:07 | PCPTNOTE ---
Pt called and cancelled
--- NOTE | 2021-01-03 11:41 | PCPTNOTE ---
PHYSICAL THERAPY DISCHARGE 01-03-21 Attending Provider: David Whitaker PA-C Patient:Ingrid Garcia Date of :1960 Mrs. Garcia has not returned for any further treatments since 12/13/2020, for the diagnosis of B LE lymphedema, therefore she will be discharged at this time. The goals were not addressed. Thank you for referring Ingrid to [facility]. Please review, sign, date and return this discharge summary REY. I have been updated about the patient's current status and I agree with discharge from the above service at this time. Referring Physician Date
== END 2021-01-03 13:46 | disposition home or self-care (01) ==
LOC: ANHPT 07:34
PROVIDERS: PCP Physician Assistant
DX: I89.0 Lymphedema, not elsewhere classified (principal)
CPT/HCPCS: 99199

== ENCOUNTER 2021-05-22 18:57 | Emergency (ER) | payer MEDICARE, MEDICAID, SELFPAY ==
[2021-05-22] VITALS (9 sets, daily range): BP systolic 64–95; BP diastolic 39–68; PULSE 82–110; RESP 16–26; TEMP 35.7–36.6; O2SAT 96–100
--- NOTE | ~2021-05-22 | XR_ITS ---
EXAMINATION: XR chest 1V DATE: 05/22/2021 19:36 INDICATION: Cough and weakness. TECHNIQUE: A single frontal view of the chest was obtained. COMPARISON: Chest 2 views 04/07/2020 FINDINGS: There are mild airspace opacities at the lung bases. No pleural effusion or pneumothorax. T he heart size is normal. A left upper extremity peripherally inserted central venous catheter (PICC) is seen with tip in the proximal right atrium. IMPRESSION: 1. Mild airspace opacities at the lung bases, consistent with atelectasis/scarring versus pneumonia. Reviewed, dictated and finalized at location A. IMPRESSION: 1. Mild airspace opacities at the lung bases, consistent with atelectasis/scarr ing versus pneumonia.
--- NOTE | ~2021-05-22 | CT_ITS ---
EXAMINATION: CT abdomen pelvis wo con DATE: 05/22/2021 19:33 INDICATION: Generalized abdominal pain. TECHNIQUE: Computed tomography (CT) of the abdomen and pelvis was performed without intravenous contr ast. Automated exposure control and iterative reconstruction technique were employed. The dose-length product was 269.46 mGy-cm. COMPARISON: CT abdomen and pelvis 05/08/2020 FINDINGS: The visualized portions of the lung bases demonstrate emphysema. There are peripheral airsp rajan opacities in the lower lobes and right middle lobe. No pleural effusion. The heart size is normal . No pericardial effusion. The liver and spleen are normal. There are gallstones in the gallbladder, which is normal in size. There are calcifications in the pancreas, consistent with chronic pancreatit is. The adrenal glands are normal. There are bilateral nephrostomy tubes in expected positions. There is mild atrophy of left kidney. There is an anastomosis in the rectum. The appendix is not visualize d. There are multiple dilated loops of small bowel. There is a ventral hernia containing small bowel. There is a ventral hernia in left upper quadrant. There is gas in the bladder. There is wall thicken ing of bladder, likely changes of radiation therapy. There is gas in the vagina. There is widespread fat stranding of the body wall and intra-abdominal fat. There are no pathologically enlarged lymph no maddie. There is no free intraperitoneal fluid. There is diffuse osteopenia, worst in the pelvis which i s likely secondary to radiation therapy. There is a compression fracture of L3, new from 05/08/2020. T here is a burst fracture of T11 with 1/5 loss of height, new from 05/08/2020. There are chronic burst fractures of L1 on L2. There is a sacral decubitus ulcer with deformity of the sacrum and coccyx, lik sriram chronic osteomyelitis. IMPRESSION: 1. Dilated loops of small bowel, consistent with adynamic ileus versus obstruction. 2. Ventral hernias, one of which contains small bowel. 3. Sacral decubitus ulcer with chronic osteomyelitis of the sacrum and coccyx. 4. Age-indeterminate compression fracture of L3 and burst fracture of T11, new from 05/08/2020. 5. Peripheral airspace opacities in the lower lobes and right middle lobe, consistent with atelectasi s/scarring versus pneumonia. Reviewed, dictated and finalized at location A. IMPRESSION: 1. Dilated loops of small bowel, consistent with adynamic ileus versus obstruct ion. 2. Ventral hernias, one of which contains small bowel. 3. Sacral decubitus ulcer with chronic osteomyelitis of the sacrum and coccyx. 4. Age-indeterminate compression fracture of L3 and burst fracture of T11, new from 05/08/2020. 5. Peripheral airspace opacities in the lower lobes and right middle lobe, cons istent with atelectasis/scarring versus pneumonia.
[2021-05-22 19:03] LABS: Glucose Point of Care 52 mg/dl (65-105)
[2021-05-22 20:11] LABS: Add Urine Microscopic? YES; Appearance Urine Cloudy (Clear); Bacteria Urine 4+ /hpf; Bilirubin Urine Negative (Negative); Blood Urine 3+ (Negative); Budding Yeast Urine Present /hpf; Color Urine Amber (Yellow); Glucose Urine UA Negative (Negative); Ketones Urine Negative (Negative); Leukocyte Esterase Ur 3+ LEU/UL (Negative); Mucus Urine Rare /lpf; Nitrate Urine Negative (Negative); Protein Urine 2+ mg/dL (Negative); RBC Urine >75 /hpf (0-2); Specific Grav Ur 1.011 (1.001-1.035); Squamous Epithelial Cell Urine Many /hpf (Few); Urobilinogen Urine Negative mg/dL (<2.0); WBC Urine >75 /hpf
--- NOTE | 2021-05-22 20:11 | ED.WEAKNESS ---
HPI - Weakness General Chief complaint: Weakness <Harry Garcia MD - Last Filed: 05/22/21 23:15> Stated complaint: weakness <Harry Garcia MD - Last Filed: 05/22/21 23:15> Time Seen by Provider: 05/22/21 23:15 <Harry Garcia MD - Last Filed: 05/22/21 23:15> History of Present Illness HPI Narrative: Patient presents with generalized weakness. 61-year-old female with complex medical history to include urostomy tubes, drug-resistant UTI, cervical cancer presents with weakness. Patient reports weeks to getting worse over the past couple days this morning family noted dark stools. Redness got worse today so the call ambulance for to come in and be evaluated. Reports she hurts all over reports feeling lightheaded she denies fevers change in cough, nausea, vomiting. <Harry Garcia MD - Last Filed: 05/22/21 23:15> Related Data Home medications: Home Medications Medication Instructions Recorded Confirmed melatonin 5 mg PO HS PRN 04/07/20 05/08/20 omeprazole 20 mg PO DAILY 04/07/20 05/08/20 albuterol sulfate 1 puff INHALATION Q6H PRN 05/08/20 05/08/20 hydrocodone-acetaminophen 1 tablet PO Q6H PRN 05/08/20 05/08/20 potassium chloride 20 meq PO BID 05/08/20 05/08/20 tramadol 50 mg PO Q8H PRN 05/08/20 05/08/20 zolpidem [Ambien] 5 mg PO HS 05/08/20 05/08/20 <Harry Garcia MD - Last Filed: 05/22/21 23:15> Allergies/Adverse reactions: Allergies Allergy/AdvReac Type Severity Reaction Status Date / Time butorphanol Allergy Mild drove Verified 05/11/20 12:18 crazy ciprofloxacin Allergy Mild Nausea and Verified 05/11/20 12:18 Vomiting iohexol Allergy Mild Itching Verified 05/11/20 12:18 [From contrast - CT, X-RAY] metrizamide Allergy Unknown Unknown Verified 05/11/20 12:18 Contrast Media Allergy Mild Itching Uncoded 05/11/20 12:18 <Harry Garcia MD - Last Filed: 05/22/21 23:15> Review of Systems Review of Systems: CONSTITUTIONAL: Denies fever, chills, or sweats. EYES: Denies visual changes, redness, or discharge. ENT: Denies rhinorrhea, congestion, sore throat, or otalgia. CARDIOVASCULAR: Denies chest pain, palpitations, or edema. RESPIRATORY: Denies cough GASTROINTESTINAL: Denies focal abdominal pain, nausea, vomiting, or diarrhea. GENITOURINARY: Denies dysuria or hematuria. SKIN: Denies rash or itching. MUSCULOSKELETAL: Denies focal back pain, focal joint pain. NEUROLOGIC: Denies headache, numbness, dizziness, or focal weakness. PSYCHIATRIC: Denies anxiety or depression. 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 History of colonoscopy Hx of section X1 Hx of dilation and curettage Hx of nephrostomy Bilateral. Placed at [facility] in approximately 2018. Hx of umbilical hernia repair History of umbilical hernia repair with mesh. <Harry Garcia MD - Last Filed: 05/22/21 23:15> Family History Family History: Family History Mother Diabetes mellitus Acute myocardial infarction Congestive heart failure Hypertension Father Hype
--- NOTE | 2021-05-22 20:27 | PC.NURSE ---
ERP aware of low blood pressures at this time.
[2021-05-22 20:28] LABS: Basophils Percent Auto 0.1 % (0.2-1.2); Immature Granulocyte Absolute 0.08 K/mm3 (0.00-0.031); Lymphocytes Absolute Auto 1.07 K/mm3 (0.9-3.2); Mean Corpuscular HGB Conc 29.6 g/dl (32-36); Mean Corpuscular Hemoglobin 27.9 pg (26-34); Mean Corpuscular Volume 94.3 fl (80-100); Mean Platelet Volume 9.9 fl (7.4-10.4); Monocytes Absolute Auto 0.6 K/mm3 (0.1-0.6); Monocytes Percent Auto 6.9 % (2.6-8.5); Neutrophils Absolute Auto 6.5 K/mm3 (1.3-6.7); Platelet Count Result 122 k/mm3 (150-375); Red Blood Count 1.22 M/mm3 (4.2-5.4); Red Cell Distribution Width 17.7 % (11.5-14.5); White Blood Count 8.3 K/mm3 (4.5-10.0)
[2021-05-22 20:29] LABS: Prothrombin Time 55.6 Seconds (11.1-14.7)
[2021-05-22 20:34] LABS: Alanine Aminotransferase 13 U/L (4-35); Albumin Level 1.3 g/dL (3.5-5.1); Alkaline Phosphatase 57 U/L (38-126); Anion Gap 5 mmol/L (8-16); Aspartate Amino Transferase 31 U/L (14-36); Bilirubin,Total 0.6 mg/dL (0.2-1.3); Blood Urea Nitrogen 16 mg/dL (7-17); Calcium 6.3 mg/dL (8.4-10.2); Carbon Dioxide 23 mmol/L (22-30); Chloride 102 mmol/L (98-107); Estimated CRCL calculation 35 ml/min; Estimated Glomerular Filt Rate 40; Glucose 97 mg/dL (65-110); Magnesium 1.2 mg/dL (1.6-2.3); Potassium 4.2 mmol/L (3.4-5.0); Sodium 130 mmol/L (137-145)
--- NOTE | 2021-05-22 20:34 | ECG_ITS ---
Measurements Intervals [place] Rate: 93 P: 95 IA: 134 QRS: 76 QRSD: 68 T: 99 QT: 347 QTc: 434 Interpretive Statements SINUS RHYTHM LOW QRS VOLTAGE IN PRECORDIAL LEADS BORDERLINE T WAVE ABNORMALITY- DIFFUSE LEADS BASELINE ARTIFACT- I, III, AVR, AVL, AVF, V1-V2 BORDERLINE ECG Electronically Signed On 05-23-2021 8:49:50 CDT by Charlie Hernandez D.O.
[2021-05-22 20:38] LABS: Lactic Acid Reflex 4.3 mmol/L (0.7-2.1)
[2021-05-22 20:39] LABS: NT Pro B Type Natriuretic Pept 1490 pg/mL (5-100); Troponin I < 0.012 ng/mL (0.000-0.034)
[2021-05-22 20:42] LABS: Hemoglobin 3.4 g/dL (12.0-15.0)
[2021-05-22 20:43] LABS: Hematocrit 11.5 % (37.0-47.0); Hypochromasia 1+ (NORMAL); Platelet Estimate Decreased (Adequate)
[2021-05-22 20:44] LABS: Ovalocytes 1+ (NORMAL)
[2021-05-22] MEDS: SODIUM CHLORIDE 0.9% IV 500 ML 999 ML IV CONT (20:48)
[2021-05-22 20:53] LABS: INR 6.6
[2021-05-22 21:13] LABS: CRP 3.4 mg/dL (<1.0)
[2021-05-22 21:23] LABS: D Dimer 2.48 ug/mL (<0.48)
[2021-05-22 21:26] LABS: Fibrinogen 141 mg/dl (215-510)
[2021-05-22 21:28] LABS: Magnesium 1.2 mg/dL (1.6-2.3)
[2021-05-22] MEDS: SODIUM CHLORIDE 0.9% IV 250 ML 30 ML IV CONT (22:11)
--- NOTE | 2021-05-22 22:42 | PC.NURSE ---
Marlo gave a code for HRT and HRT will arrive in about 2 1/2 hours to transport patient.
[2021-05-22] MEDS: fentaNYL CITRATE INJ (*CRX) 100 MCG/2 ML VIAL 25 MCG IV PUSH (22:56)
[2021-05-22] MEDS: ERTAPENEM 1 GM/NS 50 ML 1 GM/50 ML BAG IVPB (22:58)
--- NOTE | 2021-05-22 23:00 | PC.NURSE ---
Assumed care of pt. at this time. Report from ADI Mathew
[2021-05-22] MEDS: PHYTONADIONE ADULT INJ 10 MG in DEXTROSE 5% IN WATER 50 ML 100 MG IVPB (23:15)
[2021-05-22 23:16] LABS: Reflex Lactic Acid Yes or No Add Lactic
[2021-05-22] MEDS: PANTOPRAZOLE SODIUM IV 40 MG VIAL IV PUSH (23:22)
[2021-05-22] MEDS: ONDANSETRON INJ 4 MG/2 ML VIAL IV PUSH (23:22)
[2021-05-23] VITALS: BP 106/47; PULSE 84; RESP 20; O2SAT 99
--- NOTE | 2021-05-23 | PC.NURSE ---
ERP ordered NG tube to be initiated pt. states There is no fucking way you are putting that shit in my nose. I will rip it out. ERP notified.
[2021-05-23] MEDS: OCTREOTIDE ACETATE 50 MCG/ML VIAL IV PUSH (00:17)
[2021-05-23 00:38] VITALS: BP 98/69; PULSE 86; RESP 14; TEMP 36.4; O2SAT 96
[2021-05-23 00:45] VITALS: BP 111/80; PULSE 99; RESP 23; TEMP 36.7; O2SAT 96
[2021-05-23 00:46] VITALS: BP 110/80; BP 111/80; PULSE 94; PULSE 99; RESP 23; RESP 26; TEMP 36.7; O2SAT 96
--- NOTE | 2021-05-23 00:46 | PC.NURSE ---
Charted same end vitals multiple times in [facility] at 0046. Still requesting end time vitals.
[2021-05-23 00:50] VITALS: BP 110/77; PULSE 94; RESP 23; O2SAT 94
[2021-05-23] MEDS: ONDANSETRON INJ 4 MG/2 ML VIAL (00:55)
[2021-05-23 01:08] LABS: Lactic Acid 6.9 mmol/L (0.7-2.1)
== END 2021-05-23 00:50 | disposition short-term general hospital (02) ==
PROVIDERS: Emergency Medicine; Emergency Provider Emergency Medicine; PCP Physician Assistant
DX: K92.2 Gastrointestinal hemorrhage, unspecified (principal); D64.9 Anemia, unspecified; R79.1 Abnormal coagulation profile; Z20.822 Contact with and (suspected) exposure to COVID-19; J44.9 Chronic obstructive pulmonary disease, unspecified; K21.9 Gastro-esophageal reflux disease without esophagitis; K58.9 Irritable bowel syndrome, unspecified; G62.9 Polyneuropathy, unspecified; N28.9 Disorder of kidney and ureter, unspecified; Z85.41 Personal history of malignant neoplasm of cervix uteri; Z86.718 Personal history of other venous thrombosis and embolism; Z87.19 Personal history of other diseases of the digestive system; Z87.440 Personal history of urinary (tract) infections; Z90.49 Acquired absence of other specified parts of digestive tract; F17.210 Nicotine dependence, cigarettes, uncomplicated; R93.3 Abnormal findings on diagnostic imaging of other parts of digestive tract; K43.9 Ventral hernia without obstruction or gangrene; L89.159 Pressure ulcer of sacral region, unspecified stage; M46.28 Osteomyelitis of vertebra, sacral and sacrococcygeal region; R91.8 Other nonspecific abnormal finding of lung field; R93.7 Abnormal findings on diagnostic imaging of other parts of musculoskeletal system
CPT/HCPCS: 36415; 36430; 71045; 74176; 80053; 81001; 82948; 83605; 83735; 83880; 84484; 85025; 85380; 85384; 85610; 85730; 86140; 86850; 86900; 86901; 86920; 87077; 87086; 87088; 87186; 87426; 93005; 96361; 96365; 96366; 96367; 96375; 96376; 99285; C9113; C9803; J1335; J2354; J2405; J3010; J3430; J7040; J7050; J7060; P9016